=== PATIENT | male | born 1945 | race Caucasian/White ===

== ENCOUNTER 2017-03-27 16:44 | Inpatient (IN) | payer OTHER ==
[2017-03-27] MEDS ORDERED: TUSSIONEX PENNKINETIC SUSP PO PRN (17:48)
[2017-03-27] MEDS ORDERED: PHARMACY CONSULT - DOSE _____ XX SCH (18:00)
[2017-03-27] MEDS ORDERED: LEVAQUIN PREMIX IV 750 MG 750 MG/150 ML BAG IV SCH (18:00)
[2017-03-27] MEDS: DUONEB 0.5 MG/3 MG NEB SCH ×2 (18:11→20:31)
[2017-03-27] MEDS ORDERED: SALINE 3% 15 ML NEB TX NEB ONE (18:15)
[2017-03-27] MEDS ORDERED: SALINE 3% 15 ML NEB TX ONE (18:16)
[2017-03-27 18:17] VITALS: BMI 38.2
[2017-03-27 18:25] LABS: BASOPHILS % (AUTO) 1.1 % (0.2-1.0); EOSINOPHILS # (AUTO) 0.2 x10^3/uL (0.0-0.2); EOSINOPHILS % (AUTO) 5.3 % (0.9-2.9); HEMATOCRIT 34.7 % (42.0-54.0); HEMOGLOBIN 11.7 g/dL (13.5-18.0); LYMPHOCYTES # (AUTO) 0.8 X10^3/uL (1.3-2.9); LYMPHOCYTES % (AUTO) 23.6 % (21.0-51.0); MEAN CORPUSCULAR HEMOGLOBIN 32.2 pg (27.0-34.0); MEAN CORPUSCULAR HGB CONC 33.6 g/dL (33.0-35.0); MEAN CORPUSCULAR VOLUME 95.7 fL (80.0-100.0); MONOCYTES # (AUTO) 0.3 x10^3/uL (0.3-0.8); MONOCYTES % (AUTO) 7.8 % (0.0-13.0); NEUTROPHILS # (AUTO) 2.1 x10^3/uL (2.2-4.8); NEUTROPHILS % (AUTO) 62.2 % (42.0-75.0); PLATELET COUNT 104 X10^3/uL (150.0-450.0); RED BLOOD COUNT 3.62 X10^6/uL (4.7-6.0); RED CELL DISTRIBUTION WIDTH 17.7 % (11.6-16.5); WHITE BLOOD COUNT 3.5 X10^3/uL (3.6-10.0)
[2017-03-27 18:34] LABS: ALANINE AMINOTRANSFERASE 18 Units/L (12-78); ALBUMIN 3.1 g/dL (3.4-5.0); ALKALINE PHOSPHATASE 109 Units/L (46-116); ASPARTATE AMINO TRANSFERASE 38 Units/L (15-37); BLOOD UREA NITROGEN 11 mg/dL (7-18); CARBON DIOXIDE 34.3 mmol/L (21-32); CHLORIDE 103 mmol/L (98-107); COR CA(FOR HYPOALB) 9.7 mg/dL (8.5-10.1); COR NA(FOR HYPERGLY) 141 mmol/L (136-145); GLUCOSE 115 mg/dL (65-99); SODIUM 141 mmol/L (136-145); TOTAL PROTEIN 6.9 g/dL (6.4-8.2); eGFR BLACK RACES > 60 (>60); eGFR NON BLACK RACES > 60 (>60)
--- NOTE | 2017-03-27 18:44 | DR.UPDATE ---
H&P Update History and Physical Update: PRESENTED TO THE OFFICE TODAY FOR A FOLLOW UP VISIT FOR ELEVATED BLOOD SUGAR. PATIENT ALSO HAD COMPLAINTS OF COUGH, CHEST CONGESTION, WHEEZING, BILATERAL LOWER EXTREMITY EDEMA, AND WOUNDS TO BILATERAL ARMS FROM FALLING YESTERDAY. A H&P WAS COMPLETED PRIOR TO ADMISSION. HE WAS ADMITTED ON THE PNEUMONIA PROTOCOL FOR BRONCHOPNEUMONIA. WE WILL ALSO OBTAIN WOUND CULTURES OF WOUNDS TO BILATERAL ARMS. PATIENT HAS BEEN SEEN AND EXAMINED WITH NO CHANGES NOTED TO H&P. Changes noted: NO Yes with the following:
[2017-03-27] MEDS ORDERED: NS 1/2 1000 ML IV 1,000 ML IV ONE (19:13)
[2017-03-27] MEDS: NS 1/2 1000 ML IV 1,000 ML IV SCH (20:24)
[2017-03-27] MEDS: ZOSYN VIAL 4.5 GM 4.5 GM in NS 100 ML IV + SPIKE MINIBAG* 100 ML IV SCH (21:45)
[2017-03-28] MEDS: DUONEB 0.5 MG/3 MG NEB SCH ×6 (00:24→21:02)
[2017-03-28] MEDS: ROBITUSSIN DM PO SCH ×5 (00:33→20:45)
[2017-03-28] MEDS: ZOSYN VIAL 4.5 GM 4.5 GM in NS 100 ML IV + SPIKE MINIBAG* 100 ML IV SCH ×3 (05:20→21:54)
[2017-03-28 05:23] LABS: BASOPHILS % (AUTO) 0.8 % (0.2-1.0); EOSINOPHILS # (AUTO) 0.2 x10^3/uL (0.0-0.2); EOSINOPHILS % (AUTO) 5.9 % (0.9-2.9); HEMATOCRIT 32.3 % (42.0-54.0); HEMOGLOBIN 11.1 g/dL (13.5-18.0); LYMPHOCYTES # (AUTO) 0.7 X10^3/uL (1.3-2.9); LYMPHOCYTES % (AUTO) 21.5 % (21.0-51.0); MEAN CORPUSCULAR HEMOGLOBIN 32.4 pg (27.0-34.0); MEAN CORPUSCULAR HGB CONC 34.2 g/dL (33.0-35.0); MEAN CORPUSCULAR VOLUME 94.7 fL (80.0-100.0); MONOCYTES # (AUTO) 0.4 x10^3/uL (0.3-0.8); MONOCYTES % (AUTO) 10.6 % (0.0-13.0); NEUTROPHILS # (AUTO) 2.1 x10^3/uL (2.2-4.8); NEUTROPHILS % (AUTO) 61.2 % (42.0-75.0); PLATELET COUNT 99 X10^3/uL (150.0-450.0); RED BLOOD COUNT 3.41 X10^6/uL (4.7-6.0); RED CELL DISTRIBUTION WIDTH 17.7 % (11.6-16.5); WHITE BLOOD COUNT 3.4 X10^3/uL (3.6-10.0)
[2017-03-28 05:28] LABS: ALANINE AMINOTRANSFERASE 14 Units/L (12-78); ALBUMIN 2.7 g/dL (3.4-5.0); ALKALINE PHOSPHATASE 80 Units/L (46-116); ASPARTATE AMINO TRANSFERASE 35 Units/L (15-37); BLOOD UREA NITROGEN 10 mg/dL (7-18); CALCIUM 8.5 mg/dL (8.5-10.1); CHLORIDE 103 mmol/L (98-107); COR CA(FOR HYPOALB) 9.5 mg/dL (8.5-10.1); CREATININE 0.84 mg/dL (0.70-1.30); GLUCOSE 102 mg/dL (65-99); SODIUM 140 mmol/L (136-145); TOTAL PROTEIN 6.2 g/dL (6.4-8.2); eGFR BLACK RACES > 60 (>60); eGFR NON BLACK RACES > 60 (>60)
--- NOTE | 2017-03-28 06:33 | RAD ---
HISTORY: Pneumonia, cough, shortness of breath Study: Two-view chest Comparison: April 10, 2014 Technique: frontal and lateral views of both expiratory. Right costophrenic on the frontal view. Findings: The trachea is midline. Transverse cardiac diameter and bronchovascular markings are likely accentuat ed by the expiratory technique. A tiny left pleural effusion may be present . There are again changes of CABG with median sternotomy sutures and sutures indicating coronary artery bypass grafts. IMPRESSION: Expiratory phase radiographs. Transverse cardiac diameter and bronchovascular markings are likely acc entuated by the expiratory technique. Tiny left pleural effusion may be present. Reported By:
[2017-03-28] MEDS ORDERED: NS 1/2 1000 ML IV 1,000 ML IV ONE ×2 (08:08→21:47)
[2017-03-28] MEDS: SNACK - Diabetic Appropriate PO SCH ×2 (08:12→20:44)
[2017-03-28] MEDS: NS 1/2 1000 ML IV 1,000 ML IV SCH ×2 (08:14→21:54)
[2017-03-28] MEDS ORDERED: DULCOLAX TAB EC 5 MG PO PRN (08:46)
[2017-03-28] MEDS ORDERED: ANTIVERT TAB 25 MG PO PRN (08:46)
[2017-03-28] MEDS ORDERED: FATTY ACIDS PO SCH (09:00)
[2017-03-28] MEDS ORDERED: FUROSEMIDE 40 MG PO SCH (09:00)
[2017-03-28] MEDS ORDERED: NIACIN 500 MG PO SCH (09:00)
[2017-03-28] MEDS ORDERED: OMEGA PO SCH (09:00)
[2017-03-28] MEDS ORDERED: [UNRECOGNIZED DRUG - OTHER] PO SCH (09:00)
[2017-03-28] MEDS ORDERED: FISH OIL PO SCH (09:00)
[2017-03-28] MEDS ORDERED: PATIENT'S HOME MEDICATION (Metformin Hcl [Metformin Hcl] 1,000 MG) PO SCH (09:00)
[2017-03-28] MEDS ORDERED: SOTALOL HCL 80 MG PO SCH (09:00)
[2017-03-28] MEDS ORDERED: PATIENT'S HOME MEDICATION (Glipizide [Glipizide 10 Mg] 10 MG) PO SCH (09:00)
[2017-03-28] MEDS ORDERED: GLUCOPHAGE ONE (09:33)
[2017-03-28] MEDS ORDERED: LOVAZA PO ONE (09:33)
[2017-03-28] MEDS ORDERED: GLUCOTROL ONE (09:33)
[2017-03-28] MEDS ORDERED: LASIX ONE (09:33)
[2017-03-28] MEDS ORDERED: ZOLOFT PO ONE (09:33)
[2017-03-28] MEDS ORDERED: NIASPAN ER TAB 500 MG PO ONE (09:34)
--- NOTE | 2017-03-28 09:36 | PCM.PROG ---
Progress Note - Progress Note for Day of Date: 03/28/17 - Subjective Subjective: WAS ADMITTED FOR BRONCHOPNEUMONIA. HE IS ALERT AND ORIENTED, SITTING UP IN BED ON MORNING ROUNDS. HE IS NOTED WITH COMPLAINTS OF COUGH, SHORTNESS OF BREATH, AND NON-PRODUCTIVE COUGH. LUNGS ARE NOTED WITH SCATTERED WHEEZING AND RHONCHI BILATERALLY ON AUSCULTATION. VITALS THIS AM ARE 97.2-70-21-97%-120/55. CBC WNL EXCEPT WBC 3.4, RBC 3.41, HGB 11.1, HCT 32.3. CMP WNL EXCEPT GLUCOSE 102, TOTAL BILI 1.60, TOTAL PROTEIN 6.2, ALBUMIN 2.7. CHEST XRAY THAT WAS OBTAINED YESTERDAY REPORTS TINY LEFT PLEURAL EFUSION MAY BE PRESENT. BLOOD CULTURES ARE PENDING. PATIENT HAS BEEN UNABLE TO PRODUCE A SPUTUM SAMPLE, BUT WE WILL CONTINUE TO ATTEMPT TO OBTAIN SAMPLE. WE WILL CONTINUE WITH CURRENT PLAN OF CARE, RECHECK LABS AND XRAY, AND FOLLOW UP WITH PATIENT IN AM. - Past Medical Family Social History Past Med/Fam/Surg Hx: No changes since H&P Allergies: Allergies morphine Allergy (Verified 03/27/17 17:47) shrimp Allergy (Verified 03/27/17 17:48) - Review of Systems ROS: No change since H&P - Vital Signs and I&O's Vital Signs: Temperature 97.7 F Pulse Rate [Right Brachial] 89 Pulse Rate 78 Respiratory Rate 20 Blood Pressure [Left Arm] 121/66 Blood Pressure [Right Arm] 122/58 Blood Pressure 105/65 O2 Sat by Pulse Oximetry 97 Intake and Output: Intake & Output 03/25/17 03/26/17 03/27/17 03/28/17 11:59 11:59 11:59 11:59 Intake Total 1195 Output Total 900 Balance 295 - Physical Exam Oriented: Normal Eyes: Normal Ear: Normal Nose: Normal Throat: Normal Respiratory: Right, Left, Wheezes, Rhonchi Cardiovascular: Normal : Normal Auscultation: Bowel Sounds: Normal Palpation: Normal Tenderness: Normal Skin: Normal Musculoskeletal: Normal Psychiatric: Normal Mood Description: Calm Affect: Normal Speech Pattern: Clear, Appropriate - Laboratory and Diagnostics Result Diagrams: 03/28/17 04:45 03/28/17 04:45 Labs: Laboratory WBC 3.4 X10^3/uL (3.6-10.0) L 03/28/17 04:45 RBC 3.41 X10^6/uL (4.7-6.0) L 03/28/17 04:45 Hgb 11.1 g/dL (13.5-18.0) L 03/28/17 04:45 Hct 32.3 % (42.0-54.0) L 03/28/17 04:45 MCV 94.7 fL (80.0-100.0) 03/28/17 04:45 MCH 32.4 pg (27.0-34.0) 03/28/17 04:45 MCHC 34.2 g/dL (33.0-35.0) 03/28/17 04:45 RDW 17.7 % (11.6-16.5) H 03/28/17 04:45 Plt Count 99 X10^3/uL (150.0-450.0) L 03/28/17 04:45 MPV 8.0 fL (7.4-11.0) 03/28/17 04:45 Neut % 61.2 % (42.0-75.0) 03/28/17 04:45 Lymph % 21.5 % (21.0-51.0) 03/28/17 04:45 [place] % 10.6 % (0.0-13.0) 03/28/17 04:45 Eos % 5.9 % (0.9-2.9) H 03/28/17 04:45 Baso % 0.8 % (0.2-1.0) 03/28/17 04:45 Neut # 2.1 x10^3/uL (2.2-4.8) L 03/28/17 04:45 Lymph # 0.7 X10^3/uL (1.3-2.9) L 03/28/17 04:45 [place] # 0.4 x10^3/uL (0.3-0.8) 03/28/17 04:45 Eos # 0.2 x10^3/uL (0.0-0.2) 03/28/17 04:45 Baso # 0.0 X10^3/uL (0.0-0.1) 03/28/17 04:45 Absolute Nucleated RBC 0.3 /100WBC 03/28/17 04:45 Sodium 140 mmol/L (136-145) 03/28/17 04:45 Corrected Sodium TNP 03/28/17 04:45 Potassium 3.6 mmol/L (3.5-5.1) 03/28/17 04:45 Chloride 103 mmol/L (98-107) 03/28/17 04:45 Carbon Dioxide 31.0 mmol/L (21-32) 03/28/17 04:45 BUN 10 mg/dL (7-18) 03/28/17 04:45 Creatinine 0.84 mg/dL (0.70-1.30) 03/28/17 04:45 Est GFR (MDRD) Af Amer > 60 (>60) 03/28/17 04:45 Est GFR (MDRD) Non-Af > 60 (>60) 03/28/17 04:45 Glucose 102 mg/dL (65-99) H 03/28/17 04:45 Calcium 8.5 mg/dL (8.5-10.1) 03/28/17 04:45 Corrected Calcium 9.5 mg/dL (8.5-10.1) 03/28/17 04:45 Total Bilirubin 1.60 mg/dL (0.2-1.0) H 03/28/17 04:45 AST 35 Units/L (15-37) 03/28/17 04:45 ALT 14 Units/L (12-78) 03/28/17 04:45 Alkaline Phosphatase 80 Units/L (46-116) 03/28/17 04:45 Total Protein 6.2 g/dL (6.4-8.2) L 03/28/17 04:45 Albumin 2.7 g/dL (3.4-5.0) L 03/28/17 04:45 Globulin 3.5 g/dL (2.5-4.5) 03/28/17 04:45 Albumin/Globulin Ratio 0.8 Ratio (1.1-2.1) L 03/28/17 04:45 - Plan (1) Bronchopneumonia Status: Acute Plan: ZOSYN 4.5GM IV Q8H, LEVAQUIN 750MG IV DAILY, SUPPLEMENTAL OXYGEN, DUONEBS Q4H, CONTINUE TO MONITOR (2) Coronary atherosclerosis of [place] coronary artery Status: Chronic Qualifiers: [place] vs. transplanted heart: [place] heart Associated angina: angina presence unspecified Qualified Code(s): I25.10 - Atherosclerotic heart disease of [place] coronary artery without angina pectoris Plan: CONTINUE PLAVIX, CONTINUE TO MONITOR (3) Essential hypertension, benign Status: Chronic Plan: CONTINUE TO MONITOR (4) Mixed hyperlipidemia Status: Chronic Plan: CONTINUE TRICOR, CONTINUE LOVAZA, CONTINUE TO MONITOR (5) Type II diabetes mellitus, uncontrolled Status: Chronic Qualifiers: Diabetes mellitus complication status: with unspecified complications Diabetes mellitus moth exterminator insulin use: with usp use Qualified Code(s) : E11.8 - Type 2 diabetes mellitus with unspecified complications; E11.65 - Type 2 diabetes mellitus with hyperglycemia; Z79.4 - joint terminal attack controller (current) use of insulin Plan: CONTINUE GLUCOTROL, CONTINUE METFORMIN, CONTINUE TO MONITOR (6) GERD (gastroesophageal reflux disease) Status: Acute Qualifiers: Esophagitis presence: esophagitis presence not specified Qualified Code(s) : K21.9 - Gastro-esophageal reflux disease without esophagitis Plan: CONTINUE PRILOSEC, CONTINUE TO MONITOR (7) BPH (benign prostatic hyperplasia) Status: Acute Qualifiers: Lower urinary tract symptom presence: symptoms absent Qualified Code(s): N40.0 - Benign prostatic hyperplasia without lower urinary tract symptoms Plan: CONTINUE PROSCAR, CONTINUE TO MONITOR (8) PTSD (post-traumatic stress disorder) Status: Chronic Plan: CONTINUE PRAZOXIN, CONTINUE ZOLOFT, CONTINUE TO MONITOR
[2017-03-28] MEDS: TRICOR TAB 145 MG PO SCH (09:45)
[2017-03-28] MEDS: BETAPACE AF PO SCH ×2 (09:45→20:44)
[2017-03-28] MEDS: ASPIRIN PO SCH (09:45)
[2017-03-28] MEDS: ZOLOFT PO SCH (09:45)
[2017-03-28] MEDS: PriLOSEC PO SCH (09:45)
[2017-03-28] MEDS: PLAVIX PO SCH (09:46)
[2017-03-28] MEDS: LEVAQUIN PREMIX IV 750 MG 750 MG/150 ML BAG IV SCH (12:04)
[2017-03-28] MEDS: NEURONTIN TAB 600 MG PO SCH ×2 (13:44→21:54)
[2017-03-28] MEDS: GLUCOPHAGE PO SCH (16:29)
[2017-03-28] MEDS: PRAZOSIN HCL 1 MG PO SCH (20:44)
[2017-03-28] MEDS: LASIX PO SCH (20:44)
[2017-03-28] MEDS: PROSCAR PO SCH (20:45)
[2017-03-29] MEDS: DUONEB 0.5 MG/3 MG NEB SCH ×6 (01:35→21:21)
[2017-03-29] MEDS ORDERED: BUTT CREAM (COMPOUND) ONE (05:19)
[2017-03-29] MEDS: ZOSYN VIAL 4.5 GM 4.5 GM in NS 100 ML IV + SPIKE MINIBAG* 100 ML IV SCH ×3 (05:34→21:33)
[2017-03-29 06:10] LABS: BASOPHILS % (AUTO) 0.6 % (0.2-1.0); EOSINOPHILS # (AUTO) 0.1 x10^3/uL (0.0-0.2); EOSINOPHILS % (AUTO) 4.2 % (0.9-2.9); HEMATOCRIT 30.6 % (42.0-54.0); HEMOGLOBIN 10.4 g/dL (13.5-18.0); LYMPHOCYTES # (AUTO) 0.8 X10^3/uL (1.3-2.9); LYMPHOCYTES % (AUTO) 29.3 % (21.0-51.0); MEAN CORPUSCULAR HEMOGLOBIN 32.3 pg (27.0-34.0); MEAN CORPUSCULAR VOLUME 95.2 fL (80.0-100.0); MONOCYTES # (AUTO) 0.2 x10^3/uL (0.3-0.8); MONOCYTES % (AUTO) 8.9 % (0.0-13.0); NEUTROPHILS # (AUTO) 1.5 x10^3/uL (2.2-4.8); PLATELET COUNT 79 X10^3/uL (150.0-450.0); RED BLOOD COUNT 3.21 X10^6/uL (4.7-6.0); RED CELL DISTRIBUTION WIDTH 17.9 % (11.6-16.5); WHITE BLOOD COUNT 2.6 X10^3/uL (3.6-10.0)
[2017-03-29] MEDS ORDERED: GLUCOPHAGE ONE ×2 (06:19→16:10)
[2017-03-29] MEDS: NEURONTIN TAB 600 MG PO SCH ×3 (06:21→21:33)
[2017-03-29] MEDS: GLUCOPHAGE PO SCH ×2 (06:21→16:11)
[2017-03-29 06:27] LABS: ALANINE AMINOTRANSFERASE 16 Units/L (12-78); ALBUMIN 2.6 g/dL (3.4-5.0); ALKALINE PHOSPHATASE 77 Units/L (46-116); ASPARTATE AMINO TRANSFERASE 33 Units/L (15-37); BLOOD UREA NITROGEN 10 mg/dL (7-18); CALCIUM 8.4 mg/dL (8.5-10.1); CARBON DIOXIDE 30.5 mmol/L (21-32); CHLORIDE 104 mmol/L (98-107); COR CA(FOR HYPOALB) 9.5 mg/dL (8.5-10.1); CREATININE 0.94 mg/dL (0.70-1.30); GLUCOSE 108 mg/dL (65-99); SODIUM 140 mmol/L (136-145); TOTAL PROTEIN 5.8 g/dL (6.4-8.2); eGFR BLACK RACES > 60 (>60); eGFR NON BLACK RACES > 60 (>60)
--- NOTE | 2017-03-29 06:49 | RAD ---
HISTORY: Bronchopneumonia Study: AP portable chest Comparison: March 27, 2017 Findings: The patient is status post median sternotomy. The heart remains enlarged. No congestive heart failure is noted. The lungs are hypoinflated but free of acute infiltrates. No pleural effusions are identif ied. The bony thorax is unremarkable. IMPRESSION: Cardiomegaly without congestive heart failure Lungs hypoinflated but clear Reported By:
[2017-03-29] MEDS ORDERED: GLUCOTROL PO SCH (07:00)
[2017-03-29] MEDS ORDERED: ZOLOFT PO ONE (08:10)
[2017-03-29] MEDS: LOVAZA PO SCH (08:24)
[2017-03-29] MEDS: ROBITUSSIN DM PO SCH ×4 (08:24→21:33)
[2017-03-29] MEDS: ASPIRIN PO SCH (08:24)
[2017-03-29] MEDS: BETAPACE AF PO SCH ×2 (08:24→21:34)
[2017-03-29] MEDS: PriLOSEC PO SCH (08:24)
[2017-03-29] MEDS: ZOLOFT PO SCH (08:24)
[2017-03-29] MEDS: LASIX PO SCH ×2 (08:25→21:34)
[2017-03-29] MEDS: NIASPAN ER TAB 500 MG PO SCH (08:25)
[2017-03-29] MEDS: PLAVIX PO SCH (08:26)
[2017-03-29] MEDS: TRICOR TAB 145 MG PO SCH (08:27)
[2017-03-29] MEDS: LEVAQUIN PREMIX IV 750 MG 750 MG/150 ML BAG IV SCH (09:40)
[2017-03-29] MEDS ORDERED: LASIX IVP NR (10:03)
--- NOTE | 2017-03-29 10:40 | PCM.PROG ---
Progress Note - Progress Note for Day of Date: 03/29/17 - Subjective Subjective: WAS ADMITTED FOR BRONCHOPNEUMONIA. HE IS ALERT AND ORIENTED, SITTING UP IN BED ON MORNING ROUNDS. IS AT BEDSIDE. HE CONTINUES WITH COMPLAINTS OF SHORTNESS OF BREATH AND NON-PRODUCTIVE COUGH. LUNGS CONTINUE WITH SCATTERED WHEEZING AND RHONCHI BILATERALLY ON AUSCULTATION. EDEMA NOTED TO BILATERAL UPPER AND LOWER EXTREMITIES. VITALS THIS AM ARE 98.6-70-15-94%-99/54. CBC WNL EXCEPT WBC 2.6, RBC 3.21, HGB 10.4, HCT 30.6. CMP WNL EXCEPT GLUCOSE 108 , TOTAL BILI 1.20, TOTAL PROTEIN 5.8, ALBUMIN 2.6. CHEST XRAY REPORTS CARDIOMEGALY WITHOUT CHF. BLOOD CULTURES ARE PENDING. WE WILL CONTINUE TO ATTEMPT TO OBTAIN A SPUTUM SAMPLE. WE WILL GIVEN LASIX 20MG IV X 1 DOSE IN ADDITION TO HIS SCHEDULED DOSES. WE WILL CONTINUE WITH CURRENT PLAN OF CARE, RECHECK LABS AND XRAY, AND FOLLOW UP WITH PATIENT IN AM. - Past Medical Family Social History Past Med/Fam/Surg Hx: No changes since H&P Allergies: Allergies morphine Allergy (Verified 03/27/17 17:47) shrimp Allergy (Verified 03/27/17 17:48) - Review of Systems ROS: No change since H&P - Vital Signs and I&O's Vital Signs: Temperature 98.1 F Pulse Rate [Right Brachial] 79 Pulse Rate 78 Respiratory Rate 19 Blood Pressure [Left Arm] 108/54 Blood Pressure [Right Arm] 122/58 Blood Pressure 105/65 O2 Sat by Pulse Oximetry 96 Intake and Output: Intake & Output 03/26/17 03/27/17 03/28/17 03/29/17 11:59 11:59 11:59 11:59 Intake Total 1195 2470 Output Total 900 1750 Balance 295 720 - Physical Exam Oriented: Normal Eyes: Normal Ear: Normal Nose: Normal Throat: Normal Respiratory: Right, Left, Wheezes, Rhonchi Cardiovascular: Edema : Normal Auscultation: Bowel Sounds: Normal Palpation: Normal Tenderness: Normal Skin: Normal Musculoskeletal: Normal Psychiatric: Normal Mood Description: Calm Affect: Normal Speech Pattern: Clear, Appropriate - Laboratory and Diagnostics Result Diagrams: 03/29/17 05:03 03/29/17 05:03 Labs: Laboratory WBC 2.6 X10^3/uL (3.6-10.0) L 03/29/17 05:03 RBC 3.21 X10^6/uL (4.7-6.0) L 03/29/17 05:03 Hgb 10.4 g/dL (13.5-18.0) L 03/29/17 05:03 Hct 30.6 % (42.0-54.0) L 03/29/17 05:03 MCV 95.2 fL (80.0-100.0) 03/29/17 05:03 MCH 32.3 pg (27.0-34.0) 03/29/17 05:03 MCHC 34.0 g/dL (33.0-35.0) 03/29/17 05:03 RDW 17.9 % (11.6-16.5) H 03/29/17 05:03 Plt Count 79 X10^3/uL (150.0-450.0) L 03/29/17 05:03 MPV 8.0 fL (7.4-11.0) 03/29/17 05:03 Neut % 57.0 % (42.0-75.0) 03/29/17 05:03 Lymph % 29.3 % (21.0-51.0) 03/29/17 05:03 [place] % 8.9 % (0.0-13.0) 03/29/17 05:03 Eos % 4.2 % (0.9-2.9) H 03/29/17 05:03 Baso % 0.6 % (0.2-1.0) 03/29/17 05:03 Neut # 1.5 x10^3/uL (2.2-4.8) L 03/29/17 05:03 Lymph # 0.8 X10^3/uL (1.3-2.9) L 03/29/17 05:03 [place] # 0.2 x10^3/uL (0.3-0.8) L 03/29/17 05:03 Eos # 0.1 x10^3/uL (0.0-0.2) 03/29/17 05:03 Baso # 0.0 X10^3/uL (0.0-0.1) 03/29/17 05:03 Absolute Nucleated RBC 0.2 /100WBC 03/29/17 05:03 Sodium 140 mmol/L (136-145) 03/29/17 05:03 Corrected Sodium TNP 03/29/17 05:03 Potassium 3.7 mmol/L (3.5-5.1) 03/29/17 05:03 Chloride 104 mmol/L (98-107) 03/29/17 05:03 Carbon Dioxide 30.5 mmol/L (21-32) 03/29/17 05:03 BUN 10 mg/dL (7-18) 03/29/17 05:03 Creatinine 0.94 mg/dL (0.70-1.30) 03/29/17 05:03 Est GFR (MDRD) Af Amer > 60 (>60) 03/29/17 05:03 Est GFR (MDRD) Non-Af > 60 (>60) 03/29/17 05:03 Glucose 108 mg/dL (65-99) H 03/29/17 05:03 Calcium 8.4 mg/dL (8.5-10.1) L 03/29/17 05:03 Corrected Calcium 9.5 mg/dL (8.5-10.1) 03/29/17 05:03 Total Bilirubin 1.20 mg/dL (0.2-1.0) H 03/29/17 05:03 AST 33 Units/L (15-37) 03/29/17 05:03 ALT 16 Units/L (12-78) 03/29/17 05:03 Alkaline Phosphatase 77 Units/L (46-116) 03/29/17 05:03 Total Protein 5.8 g/dL (6.4-8.2) L 03/29/17 05:03 Albumin 2.6 g/dL (3.4-5.0) L 03/29/17 05:03 Globulin 3.2 g/dL (2.5-4.5) 03/29/17 05:03 Albumin/Globulin Ratio 0.8 Ratio (1.1-2.1) L 03/29/17 05:03 - Plan (1) Bronchopneumonia Status: Acute Plan: ZOSYN 4.5GM IV Q8H, LEVAQUIN 750MG IV DAILY, SUPPLEMENTAL OXYGEN, DUONEBS Q4H, CONTINUE TO MONITOR (2) Coronary atherosclerosis of [place] coronary artery Status: Chronic Qualifiers: [place] vs. transplanted heart: [place] heart Associated angina: angina presence unspecified Qualified Code(s): I25.10 - Atherosclerotic heart disease of [place] coronary artery without angina pectoris Plan: CONTINUE PLAVIX, CONTINUE TO MONITOR (3) Essential hypertension, benign Status: Chronic Plan: CONTINUE TO MONITOR (4) Mixed hyperlipidemia Status: Chronic Plan: CONTINUE TRICOR, CONTINUE LOVAZA, CONTINUE TO MONITOR (5) Type II diabetes mellitus, uncontrolled Status: Chronic Qualifiers: Diabetes mellitus complication status: with unspecified complications Diabetes mellitus assisted insulin use: with assisted use Qualified Code(s) : E11.8 - Type 2 diabetes mellitus with unspecified complications; E11.65 - Type 2 diabetes mellitus with hyperglycemia; Z79.4 - ad terminal makeup operator (current) use of insulin Plan: CONTINUE GLUCOTROL, CONTINUE METFORMIN, CONTINUE TO MONITOR (6) GERD (gastroesophageal reflux disease) Status: Acute Qualifiers: Esophagitis presence: esophagitis presence not specified Qualified Code(s) : K21.9 - Gastro-esophageal reflux disease without esophagitis Plan: CONTINUE PRILOSEC, CONTINUE TO MONITOR (7) BPH (benign prostatic hyperplasia) Status: Acute Qualifiers: Lower urinary tract symptom presence: symptoms absent Qualified Code(s): N40.0 - Benign prostatic hyperplasia without lower urinary tract symptoms Plan: CONTINUE PROSCAR, CONTINUE TO MONITOR (8) PTSD (post-traumatic stress disorder) Status: Chronic Plan: CONTINUE PRAZOXIN, CONTINUE ZOLOFT, CONTINUE TO MONITOR
[2017-03-29] MEDS: NS 1/2 1000 ML IV 1,000 ML IV SCH (13:15)
[2017-03-29] MEDS: PROSCAR PO SCH (21:33)
[2017-03-29] MEDS: SNACK - Diabetic Appropriate PO SCH (21:39)
[2017-03-29] MEDS: PRAZOSIN HCL 1 MG PO SCH (21:44)
[2017-03-30] MEDS: DUONEB 0.5 MG/3 MG NEB SCH ×6 (05:00→21:45)
[2017-03-30 05:41] LABS: BASOPHILS % (AUTO) 0.8 % (0.2-1.0); EOSINOPHILS # (AUTO) 0.1 x10^3/uL (0.0-0.2); EOSINOPHILS % (AUTO) 4.3 % (0.9-2.9); HEMATOCRIT 30.7 % (42.0-54.0); HEMOGLOBIN 10.6 g/dL (13.5-18.0); LYMPHOCYTES # (AUTO) 0.7 X10^3/uL (1.3-2.9); LYMPHOCYTES % (AUTO) 24.5 % (21.0-51.0); MEAN CORPUSCULAR HEMOGLOBIN 32.9 pg (27.0-34.0); MEAN CORPUSCULAR HGB CONC 34.5 g/dL (33.0-35.0); MEAN CORPUSCULAR VOLUME 95.4 fL (80.0-100.0); MEAN PLATELET VOLUME 8.3 fL (7.4-11.0); MONOCYTES # (AUTO) 0.2 x10^3/uL (0.3-0.8); MONOCYTES % (AUTO) 8.1 % (0.0-13.0); NEUTROPHILS # (AUTO) 1.8 x10^3/uL (2.2-4.8); NEUTROPHILS % (AUTO) 62.3 % (42.0-75.0); PLATELET COUNT 74 X10^3/uL (150.0-450.0); RED BLOOD COUNT 3.21 X10^6/uL (4.7-6.0)
[2017-03-30 05:52] LABS: ALANINE AMINOTRANSFERASE 12 Units/L (12-78); ALBUMIN 2.5 g/dL (3.4-5.0); ALKALINE PHOSPHATASE 74 Units/L (46-116); ASPARTATE AMINO TRANSFERASE 32 Units/L (15-37); BLOOD UREA NITROGEN 13 mg/dL (7-18); CALCIUM 8.2 mg/dL (8.5-10.1); CARBON DIOXIDE 29.5 mmol/L (21-32); CHLORIDE 103 mmol/L (98-107); COR CA(FOR HYPOALB) 9.4 mg/dL (8.5-10.1); CREATININE 0.99 mg/dL (0.70-1.30); GLUCOSE 97 mg/dL (65-99); SODIUM 139 mmol/L (136-145); TOTAL PROTEIN 5.9 g/dL (6.4-8.2); eGFR BLACK RACES > 60 (>60); eGFR NON BLACK RACES > 60 (>60)
[2017-03-30] MEDS ORDERED: GLUCOPHAGE ONE ×2 (06:02→16:29)
[2017-03-30] MEDS: NEURONTIN TAB 600 MG PO SCH ×3 (06:34→21:19)
[2017-03-30] MEDS: GLUCOPHAGE PO SCH ×2 (06:34→16:32)
[2017-03-30] MEDS: ZOSYN VIAL 4.5 GM 4.5 GM in NS 100 ML IV + SPIKE MINIBAG* 100 ML IV SCH ×3 (06:34→21:20)
[2017-03-30] MEDS: NS 1/2 1000 ML IV 1,000 ML IV SCH ×3 (06:35→18:57)
--- NOTE | 2017-03-30 07:35 | RAD ---
HISTORY: Bronchopneumonia follow up Study: Chest AP portable Comparison: March 29, 2017 Findings: The patient is status post median sternotomy and CABG. The heart is enlarged. No congestive heart monique lure is noted. The lungs are hypoinflated but free of acute infiltrates. No pleural effusions are david ntified. The bony thorax is unremarkable. IMPRESSION: Cardiomegaly without congestive heart failure Lungs hypoinflated but clear Reported By:
[2017-03-30] MEDS ORDERED: ZOLOFT PO ONE (08:21)
[2017-03-30] MEDS: LOVAZA PO SCH (09:32)
[2017-03-30] MEDS: ASPIRIN PO SCH (09:32)
[2017-03-30] MEDS: LEVAQUIN PREMIX IV 750 MG 750 MG/150 ML BAG IV SCH (09:32)
[2017-03-30] MEDS: NIASPAN ER TAB 500 MG PO SCH (09:32)
[2017-03-30] MEDS: LASIX PO SCH ×2 (09:33→21:19)
[2017-03-30] MEDS: ROBITUSSIN DM PO SCH ×4 (09:33→21:20)
[2017-03-30] MEDS: ZOLOFT PO SCH (09:33)
[2017-03-30] MEDS: BETAPACE AF PO SCH ×2 (09:33→21:20)
[2017-03-30] MEDS: PriLOSEC PO SCH (09:33)
[2017-03-30] MEDS: PLAVIX PO SCH (09:34)
[2017-03-30] MEDS ORDERED: NS 1/2 1000 ML IV 1,000 ML IV ONE (09:41)
[2017-03-30] MEDS: TRICOR TAB 145 MG PO SCH (09:48)
--- NOTE | 2017-03-30 11:11 | PCM.PROG ---
Progress Note - Progress Note for Day of Date: 03/30/17 - Subjective Subjective: IS ALERT AND ORIENTED, SITTING UP IN CHAIR ON MORNING ROUNDS. IS AT BEDSIDE. HE CONTINUES WITH COMPLAINTS OF SHORTNESS OF BREATH AND NON-PRODUCTIVE COUGH, BUT REPORTS THAT IT HAS IMPROVED SINCE YESTERDAY. LUNGS ARE NOTED WITH BILATERAL WHEEZING ON AUSCULTATION. VITALS THIS AM ARE 98.6 -70-15-94%-99/54. CBC WNL EXCEPT WBC 3.0, RBC 3.21, HGB 10.6, HCT 30.7. CMP WNL EXCEPT CALCIUM 8.2, TOTAL BILI 1.40, TOTAL PROTEIN 5.9, ALBUMIN 2.5. CHEST XRAY REPORTS CARDIOMEGALY WITHOUT CHF, LUNGS CLEAR. PRELIMINARY BLOOD CULTURE REPORTS NO GROWTH. WE HAVE BEEN UNSUCCESSFUL WITH OBTAINING A SPUTUM CULTURE. WE WILL CONTINUE WITH CURRENT PLAN OF CARE, RECHECK LABS AND XRAY, AND FOLLOW UP WITH PATIENT IN AM. - Past Medical Family Social History Past Med/Fam/Surg Hx: No changes since H&P Allergies: Allergies morphine Allergy (Verified 03/27/17 17:47) shrimp Allergy (Verified 03/27/17 17:48) - Review of Systems ROS: No change since H&P - Vital Signs and I&O's Vital Signs: Temperature 97.6 F Pulse Rate [Right Brachial] 71 Pulse Rate 73 Respiratory Rate 21 Blood Pressure [Left Arm] 101/59 Blood Pressure [Right Arm] 122/58 Blood Pressure 105/65 O2 Sat by Pulse Oximetry 95 Intake and Output: Intake & Output 03/27/17 03/28/17 03/29/17 03/30/17 11:59 11:59 11:59 11:59 Intake Total 1195 2470 2759 Output Total 900 1750 1900 Balance 295 720 859 - Physical Exam Oriented: Normal Eyes: Normal Ear: Normal Nose: Normal Throat: Normal Respiratory: Right, Left, Wheezes Cardiovascular: Edema : Normal Auscultation: Bowel Sounds: Normal Palpation: Normal Tenderness: Normal Skin: Normal Musculoskeletal: Normal Psychiatric: Normal Mood Description: Calm Affect: Normal Speech Pattern: Clear, Appropriate - Laboratory and Diagnostics Result Diagrams: 03/30/17 04:55 03/30/17 04:55 Labs: 03/27/17 18:08 Blood Blood Culture - Preliminary 03/27/17 18:03 Blood Blood Culture - Preliminary Laboratory WBC 3.0 X10^3/uL (3.6-10.0) L 03/30/17 04:55 RBC 3.21 X10^6/uL (4.7-6.0) L 03/30/17 04:55 Hgb 10.6 g/dL (13.5-18.0) L 03/30/17 04:55 Hct 30.7 % (42.0-54.0) L 03/30/17 04:55 MCV 95.4 fL (80.0-100.0) 03/30/17 04:55 MCH 32.9 pg (27.0-34.0) 03/30/17 04:55 MCHC 34.5 g/dL (33.0-35.0) 03/30/17 04:55 RDW 18.0 % (11.6-16.5) H 03/30/17 04:55 Plt Count 74 X10^3/uL (150.0-450.0) L 03/30/17 04:55 MPV 8.3 fL (7.4-11.0) 03/30/17 04:55 Neut % 62.3 % (42.0-75.0) 03/30/17 04:55 Lymph % 24.5 % (21.0-51.0) 03/30/17 04:55 [place] % 8.1 % (0.0-13.0) 03/30/17 04:55 Eos % 4.3 % (0.9-2.9) H 03/30/17 04:55 Baso % 0.8 % (0.2-1.0) 03/30/17 04:55 Neut # 1.8 x10^3/uL (2.2-4.8) L 03/30/17 04:55 Lymph # 0.7 X10^3/uL (1.3-2.9) L 03/30/17 04:55 [place] # 0.2 x10^3/uL (0.3-0.8) L 03/30/17 04:55 Eos # 0.1 x10^3/uL (0.0-0.2) 03/30/17 04:55 Baso # 0.0 X10^3/uL (0.0-0.1) 03/30/17 04:55 Absolute Nucleated RBC 0.1 /100WBC 03/30/17 04:55 Sodium 139 mmol/L (136-145) 03/30/17 04:55 Corrected Sodium TNP 03/30/17 04:55 Potassium 3.5 mmol/L (3.5-5.1) 03/30/17 04:55 Chloride 103 mmol/L (98-107) 03/30/17 04:55 Carbon Dioxide 29.5 mmol/L (21-32) 03/30/17 04:55 BUN 13 mg/dL (7-18) 03/30/17 04:55 Creatinine 0.99 mg/dL (0.70-1.30) 03/30/17 04:55 Est GFR (MDRD) Af Amer > 60 (>60) 03/30/17 04:55 Est GFR (MDRD) Non-Af > 60 (>60) 03/30/17 04:55 Glucose 97 mg/dL (65-99) 03/30/17 04:55 Calcium 8.2 mg/dL (8.5-10.1) L 03/30/17 04:55 Corrected Calcium 9.4 mg/dL (8.5-10.1) 03/30/17 04:55 Total Bilirubin 1.40 mg/dL (0.2-1.0) H 03/30/17 04:55 AST 32 Units/L (15-37) 03/30/17 04:55 ALT 12 Units/L (12-78) 03/30/17 04:55 Alkaline Phosphatase 74 Units/L (46-116) 03/30/17 04:55 Total Protein 5.9 g/dL (6.4-8.2) L 03/30/17 04:55 Albumin 2.5 g/dL (3.4-5.0) L 03/30/17 04:55 Globulin 3.4 g/dL (2.5-4.5) 03/30/17 04:55 Albumin/Globulin Ratio 0.7 Ratio (1.1-2.1) L 03/30/17 04:55 - Plan (1) Bronchopneumonia Status: Acute Plan: ZOSYN 4.5GM IV Q8H, LEVAQUIN 750MG IV DAILY, SUPPLEMENTAL OXYGEN, DUONEBS Q4H, CONTINUE TO MONITOR (2) Coronary atherosclerosis of [place] coronary artery Status: Chronic Qualifiers: [place] vs. transplanted heart: [place] heart Associated angina: angina presence unspecified Qualified Code(s): I25.10 - Atherosclerotic heart disease of [place] coronary artery without angina pectoris Plan: CONTINUE PLAVIX, CONTINUE TO MONITOR (3) Essential hypertension, benign Status: Chronic Plan: CONTINUE TO MONITOR (4) Mixed hyperlipidemia Status: Chronic Plan: CONTINUE TRICOR, CONTINUE LOVAZA, CONTINUE TO MONITOR (5) Type II diabetes mellitus, uncontrolled Status: Chronic Qualifiers: Diabetes mellitus complication status: with unspecified complications Diabetes mellitus superintendent container terminal insulin use: with superintendent container terminal use Qualified Code(s) : E11.8 - Type 2 diabetes mellitus with unspecified complications; E11.65 - Type 2 diabetes mellitus with hyperglycemia; Z79.4 - watermaster (current) use of insulin Plan: CONTINUE GLUCOTROL, CONTINUE METFORMIN, CONTINUE TO MONITOR (6) GERD (gastroesophageal reflux disease) Status: Acute Qualifiers: Esophagitis presence: esophagitis presence not specified Qualified Code(s) : K21.9 - Gastro-esophageal reflux disease without esophagitis Plan: CONTINUE PRILOSEC, CONTINUE TO MONITOR (7) BPH (benign prostatic hyperplasia) Status: Acute Qualifiers: Lower urinary tract symptom presence: symptoms absent Qualified Code(s): N40.0 - Benign prostatic hyperplasia without lower urinary tract symptoms Plan: CONTINUE PROSCAR, CONTINUE TO MONITOR (8) PTSD (post-traumatic stress disorder) Status: Chronic Plan: CONTINUE PRAZOXIN, CONTINUE ZOLOFT, CONTINUE TO MONITOR
[2017-03-30] MEDS ORDERED: K-RIDER 10 MEQ/NS 100 ML 10 MEQ/100 ML BAG IV PRN (11:58)
[2017-03-30] MEDS ORDERED: K-LYTE EFFERVESCENT PO PRN (11:58)
[2017-03-30] MEDS ORDERED: K-DUR TAB 20 MEQ PO PRN (11:58)
[2017-03-30] MEDS ORDERED: POTASSIUM CHLORIDE LIQ 20 MEQ UDC PO PRN (11:58)
[2017-03-30] MEDS: PROSCAR PO SCH (21:19)
[2017-03-30] MEDS: PRAZOSIN HCL 1 MG PO SCH (21:20)
[2017-03-30] MEDS: SNACK - Diabetic Appropriate PO SCH (21:20)
[2017-03-31] MEDS: DUONEB 0.5 MG/3 MG NEB SCH ×4 (00:24→16:00)
[2017-03-31] MEDS ORDERED: GLUCOPHAGE ONE ×2 (05:53→16:15)
[2017-03-31] MEDS: ZOSYN VIAL 4.5 GM 4.5 GM in NS 100 ML IV + SPIKE MINIBAG* 100 ML IV SCH ×2 (06:01→14:15)
[2017-03-31] MEDS: NEURONTIN TAB 600 MG PO SCH ×2 (06:02→14:15)
[2017-03-31] MEDS: GLUCOPHAGE PO SCH ×2 (06:02→16:22)
[2017-03-31] MEDS: NS 1/2 1000 ML IV 1,000 ML IV SCH ×2 (06:04→16:23)
[2017-03-31 06:34] LABS: BASOPHILS % (AUTO) 0.7 % (0.2-1.0); EOSINOPHILS # (AUTO) 0.2 x10^3/uL (0.0-0.2); EOSINOPHILS % (AUTO) 6.1 % (0.9-2.9); HEMATOCRIT 31.5 % (42.0-54.0); HEMOGLOBIN 10.6 g/dL (13.5-18.0); LYMPHOCYTES # (AUTO) 0.7 X10^3/uL (1.3-2.9); LYMPHOCYTES % (AUTO) 26.4 % (21.0-51.0); MEAN CORPUSCULAR HEMOGLOBIN 32.5 pg (27.0-34.0); MEAN CORPUSCULAR HGB CONC 33.6 g/dL (33.0-35.0); MEAN CORPUSCULAR VOLUME 96.8 fL (80.0-100.0); MEAN PLATELET VOLUME 8.6 fL (7.4-11.0); MONOCYTES # (AUTO) 0.2 x10^3/uL (0.3-0.8); MONOCYTES % (AUTO) 8.3 % (0.0-13.0); NEUTROPHILS # (AUTO) 1.6 x10^3/uL (2.2-4.8); NEUTROPHILS % (AUTO) 58.5 % (42.0-75.0); PLATELET COUNT 73 X10^3/uL (150.0-450.0); RED BLOOD COUNT 3.26 X10^6/uL (4.7-6.0); RED CELL DISTRIBUTION WIDTH 17.9 % (11.6-16.5); WHITE BLOOD COUNT 2.7 X10^3/uL (3.6-10.0)
[2017-03-31 06:43] LABS: ALANINE AMINOTRANSFERASE 14 Units/L (12-78); ALBUMIN 2.6 g/dL (3.4-5.0); ALKALINE PHOSPHATASE 76 Units/L (46-116); ASPARTATE AMINO TRANSFERASE 35 Units/L (15-37); BLOOD UREA NITROGEN 14 mg/dL (7-18); CALCIUM 8.2 mg/dL (8.5-10.1); CARBON DIOXIDE 28.2 mmol/L (21-32); CHLORIDE 104 mmol/L (98-107); COR CA(FOR HYPOALB) 9.3 mg/dL (8.5-10.1); CREATININE 1.03 mg/dL (0.70-1.30); GLUCOSE 109 mg/dL (65-99); SODIUM 139 mmol/L (136-145); TOTAL PROTEIN 6.1 g/dL (6.4-8.2); eGFR BLACK RACES > 60 (>60); eGFR NON BLACK RACES > 60 (>60)
--- NOTE | 2017-03-31 07:54 | RAD ---
Chest, one view Indication: Bronchopneumonia Comparison: March 30, 2017 Findings: There is stable mild cardiomegaly without congestive failure. Prior median sternotomy and C ABG changes again noted. Lungs are hypoexpanded but otherwise clear. No appreciable effusion or pneum othorax. Impression: No acute cardiopulmonary abnormality. Reported By:
[2017-03-31] MEDS ORDERED: ZOLOFT PO ONE (08:11)
[2017-03-31] MEDS: TRICOR TAB 145 MG PO SCH (08:20)
[2017-03-31] MEDS: LEVAQUIN PREMIX IV 750 MG 750 MG/150 ML BAG IV SCH (08:20)
[2017-03-31] MEDS: NIASPAN ER TAB 500 MG PO SCH (08:20)
[2017-03-31] MEDS: PLAVIX PO SCH (08:20)
[2017-03-31] MEDS: LASIX PO SCH (08:20)
[2017-03-31] MEDS: BETAPACE AF PO SCH (08:20)
[2017-03-31] MEDS: ROBITUSSIN DM PO SCH ×3 (08:20→16:22)
[2017-03-31] MEDS: LOVAZA PO SCH (08:20)
[2017-03-31] MEDS: PriLOSEC PO SCH (08:20)
[2017-03-31] MEDS: ASPIRIN PO SCH (08:20)
[2017-03-31] MEDS: ZOLOFT PO SCH (08:20)
[2017-03-31] MEDS ORDERED: NS 1/2 1000 ML IV 1,000 ML IV ONE (16:03)
[2017-03-31 16:29] VITALS: BP 101/56
== END 2017-03-31 18:50 | disposition home or self-care (01) | DRG 195 ==
LOC: ICU 16:44
PROVIDERS: ADMIT Internal Medicine; ATTEND Internal Medicine
DX: J16.8 Pneumonia due to other specified infectious organisms (principal); E11.65 Type 2 diabetes mellitus with hyperglycemia; E78.2 Mixed hyperlipidemia; R53.1 Weakness; J44.9 Chronic obstructive pulmonary disease, unspecified; I10 Essential (primary) hypertension; S41.111A Laceration without foreign body of right upper arm, initial encounter; S41.112A Laceration without foreign body of left upper arm, initial encounter; R06.02 Shortness of breath; I25.10 Atherosclerotic heart disease of native coronary artery without angina pectoris; Z79.4 Long term (current) use of insulin; K21.9 Gastro-esophageal reflux disease without esophagitis; N40.0 Benign prostatic hyperplasia without lower urinary tract symptoms; F43.12 Post-traumatic stress disorder, chronic; R26.89 Other abnormalities of gait and mobility; W18.39XA Other fall on same level, initial encounter
CPT/HCPCS: 36415; 71010; 71020; 80053; 85025; 87040; 87070; 87075; 87205; 94640; 94760; A4222; S0138; J1940; J1956; J2543; J7620

== ENCOUNTER 2017-04-16 00:09 | Emergency (ER) | payer OTHER ==
[2017-04-16 00:17] VITALS: BP 94/57; BMI 37.5
--- NOTE | 2017-04-16 00:32 | DR.GENAD ---
HPI - PCP Primary Care Physician: NORMA - Complaint/Symptoms Chief Complaint Doctors Comments: Patient was trying to use the commode with the assistance of spouse and when sitting he hit his head on the left temporal area. There was no LOC and no skin abrasion. Patient is alert in no distress. Chief Complaint:: PT FELL OFF TOLIET AND HIT HIS HEAD ON THE LT SIDE OF HEAD - Source History Provided: Patient - Mode of Arrival Mode of Arrival: EMS - Timing Onset of Chief Complaint: 04/15/17 PMH - PMH Past Medical History: Yes Past Medical History: Anxiety, Arthritis, Coronary Artery Disease, Diabetes, Dyslipidemia, Hypertension, PR Past Surgical History: Yes Surgical History: Ortho Surgery, Other - Family History History of Family Medical Conditions: Yes Family Medical History: Diabetes Mellitus, Hypertension - Social History Does any household member use tobacco: No Alcohol Use: None Do you use any recreational Drugs:: No Lives With: Family Lives Where: Home - infectious screening In the last 2 months have you had wt loss of >10#?: NO Have you had fever, night sweats or hemotysis?: No Have you traveled outside the country in the last 6 months?: No Isolation: Standard ROS - Review of Systems Eyes: No Symptoms Reported ENTM: No Symptoms Reported Respiratoy: No Symptoms Reported Cardiovascular: No Symptoms Reported Gastrointestinal/Abdominal: No Symptoms Reported Genitourinary: No Symptoms Reported Neurological: No Symptoms Reported Musculoskeletal: No Symptoms Reported Integumentary: No Symptoms Reported Hematologic/Lymphatic: No Symptoms Reported Endocrine: No Symptoms Reported Psychiatric: No Symptoms Reported All Other Systems: Reviewed and Negative PE - Vital Signs Vitals: Temperature 97.8 F Pulse Rate 84 Respiratory Rate 20 Blood Pressure [Left Arm] 101/56 Blood Pressure [Right Arm] 108/58 Blood Pressure 94/57 O2 Sat by Pulse Oximetry 93 - General Limitations: No Limitations General Appearance: Alert, In No Apparent Distress - Head Head Exam: Normal Inspection, Atraumatic - Eyes Eye exam: Normal Appearance, PERRL, EOMI - ENT ENT Exam: Normal Exam External Ear Exam: Normal External Inspection TM/Canal Exam: Bilateral Normal Nose Exam: Normal Nose Exam Mouth Exam: Normal Inspection Throat Exam: Normal Inspection - Neck Neck Exam: Normal Inspection, Full ROM - Chest Chest Inspection: Normal Inspection - Respiratory Respiratory Exam: Normal Lung Sounds Bilat Respiratory Exam: Bilateral Clear to Auscultation - Cardiovascular Cardiovascular Exam: Regular Rate, Normal Rhythm - Abdominal Exam Abdominal Exam: Normal Inspection, Normal Bowel Sounds Abdominal Tenderness: negative: RUQ, RLQ, LUQ, LLQ, Epigastrium, Suprapubic, Diffuse, Mild, Moderate, Severe, Other - Extremities Extremities Exam: Normal Inspection, Full ROM - Back Back Exam: Normal Inspection, Full ROM - Neurologic Neurological Exam: Alert, Oriented X3, CN II-XII Intact - Psychiatric Psychiatric Exam: Normal Affect, Normal Mood - Skin Skin Exam: Warm, Dry, Intact, Normal Color - Diagnosis Discharge Problem: Head trauma Qualifiers: Encounter type: initial encounter Qualified Code(s): S09.90XA - Unspecified injury of head, initial encounter - Discharge Plan Condition: Stable - Follow ups/Referrals Follow ups/Referrals: Xander Keller [Primary Care Provider] - 3 days - Instructions
== END 2017-04-16 01:02 | disposition home or self-care (01) ==
LOC: ER 00:09
DX: S09.8XXA Other specified injuries of head, initial encounter (principal); W01.198A Fall on same level from slipping, tripping and stumbling with subsequent striking against other object, initial encounter; Y92.9 Unspecified place or not applicable
CPT/HCPCS: 99281; 99282

== ENCOUNTER 2017-04-16 13:33 | Observation (INO) | payer OTHER ==
[2017-04-16] MEDS: LASIX IVP SCH ×2 (15:10→21:15)
[2017-04-16 15:12] LABS: BASOPHILS # (AUTO) 0.1 X10^3/uL (0.0-0.1); BASOPHILS % (AUTO) 1.3 % (0.2-1.0); EOSINOPHILS # (AUTO) 0.2 x10^3/uL (0.0-0.2); EOSINOPHILS % (AUTO) 5.8 % (0.9-2.9); HEMATOCRIT 34.2 % (42.0-54.0); HEMOGLOBIN 11.6 g/dL (13.5-18.0); LYMPHOCYTES # (AUTO) 0.8 X10^3/uL (1.3-2.9); LYMPHOCYTES % (AUTO) 18.8 % (21.0-51.0); MEAN CORPUSCULAR HEMOGLOBIN 32.4 pg (27.0-34.0); MEAN CORPUSCULAR HGB CONC 33.9 g/dL (33.0-35.0); MEAN CORPUSCULAR VOLUME 95.5 fL (80.0-100.0); MEAN PLATELET VOLUME 8.1 fL (7.4-11.0); MONOCYTES # (AUTO) 0.3 x10^3/uL (0.3-0.8); MONOCYTES % (AUTO) 8.4 % (0.0-13.0); NEUTROPHILS # (AUTO) 2.7 x10^3/uL (2.2-4.8); NEUTROPHILS % (AUTO) 65.7 % (42.0-75.0); PLATELET COUNT 100 X10^3/uL (150.0-450.0); RED BLOOD COUNT 3.58 X10^6/uL (4.7-6.0); RED CELL DISTRIBUTION WIDTH 17.1 % (11.6-16.5); WHITE BLOOD COUNT 4.1 X10^3/uL (3.6-10.0)
[2017-04-16 15:36] LABS: ALANINE AMINOTRANSFERASE 14 Units/L (12-78); ALBUMIN 2.6 g/dL (3.4-5.0); ALKALINE PHOSPHATASE 97 Units/L (46-116); ASPARTATE AMINO TRANSFERASE 39 Units/L (15-37); BLOOD UREA NITROGEN 20 mg/dL (7-18); CALCIUM 8.4 mg/dL (8.5-10.1); CARBON DIOXIDE 34.4 mmol/L (21-32); CHLORIDE 98 mmol/L (98-107); CKMB % 1.8 % (<4); COR CA(FOR HYPOALB) 9.5 mg/dL (8.5-10.1); CREATINE KINASE 57 Units/L (39-308); CREATINE KINASE MB < 1.0 ng/mL (0-4.0); SODIUM 139 mmol/L (136-145); TOTAL PROTEIN 6.1 g/dL (6.4-8.2); TROPONIN I 0.08 ng/mL (0-1.5); eGFR BLACK RACES > 60 (>60); eGFR NON BLACK RACES 53 (>60)
[2017-04-16 15:50] LABS: BILIRUBIN,URINE NEGATIVE (NEGATIVE); BLOOD/HEMOGLOBIN,URINE 1+ (NEGATIVE); GLUCOSE, URINE NEGATIVE (NEGATIVE); KETONES,URINE NEGATIVE (NEGATIVE); LEUKOCYTE ESTERASE ,URINE 1+ (NEGATIVE); NITRITES,URINE NEGATIVE (NEGATIVE); PROTEIN,URINE NEGATIVE (NEGATIVE); UROBILINOGEN,URINE 1+ (NORMAL)
[2017-04-16 15:51] VITALS: BMI 38.0
[2017-04-16 15:59] LABS: APPEARANCE,URINE SLIGHTLY HAZY (CLEAR); COLOR,URINE DARK YELLOW (YELLOW)
[2017-04-16 16:00] LABS: BACTERIA,URINE 2+ /HPF (NEGATIVE); RENAL EPITHELIAL CELLS,URINE RARE /HPF (NEGATIVE); SQUAMOUS EPITHELIAL CELL,UR FEW /HPF (NEGATIVE)
--- NOTE | 2017-04-16 16:26 | RAD ---
AP Chest Indication: Shortness of breath Comparison: 03/31/2017 Findings: The trachea is midline. Heart size is borderline enlarged given AP technique . Previous m sternotomy is again noted . The lungs are underinflated with congestion of the central pulmonary vasculature , no focal airspace opacity pleural effusion or pneumothorax. The lungs are clear without focal infiltr ate or effusion. The bony thorax is unremarkable. IMPRESSION: Suboptimal inspiration limits evaluation with borderline cardiomegaly post median sternotomy; without evidence of acute airspace disease or CHF. Reported By:
[2017-04-16 18:46] LABS: CKMB % 1.9 % (<4); CREATINE KINASE 52 Units/L (39-308); CREATINE KINASE MB < 1.0 ng/mL (0-4.0); TROPONIN I 0.08 ng/mL (0-1.5)
[2017-04-16 22:20] LABS: CREATINE KINASE 51 Units/L (39-308); CREATINE KINASE MB < 1.0 ng/mL (0-4.0); TROPONIN I 0.07 ng/mL (0-1.5)
[2017-04-17 04:30] LABS: ALANINE AMINOTRANSFERASE 12 Units/L (12-78); ALBUMIN 2.6 g/dL (3.4-5.0); ALKALINE PHOSPHATASE 89 Units/L (46-116); ASPARTATE AMINO TRANSFERASE 37 Units/L (15-37); BLOOD UREA NITROGEN 19 mg/dL (7-18); CALCIUM 8.5 mg/dL (8.5-10.1); CARBON DIOXIDE 37.8 mmol/L (21-32); CHLORIDE 100 mmol/L (98-107); COR CA(FOR HYPOALB) 9.6 mg/dL (8.5-10.1); CREATININE 1.18 mg/dL (0.70-1.30); SODIUM 142 mmol/L (136-145); TOTAL PROTEIN 6.1 g/dL (6.4-8.2); eGFR BLACK RACES > 60 (>60); eGFR NON BLACK RACES > 60 (>60)
[2017-04-17 04:34] LABS: BASOPHILS % (AUTO) 0.8 % (0.2-1.0); EOSINOPHILS # (AUTO) 0.4 x10^3/uL (0.0-0.2); EOSINOPHILS % (AUTO) 8.7 % (0.9-2.9); HEMATOCRIT 35.1 % (42.0-54.0); HEMOGLOBIN 11.9 g/dL (13.5-18.0); LYMPHOCYTES % (AUTO) 23.2 % (21.0-51.0); MEAN CORPUSCULAR HEMOGLOBIN 32.6 pg (27.0-34.0); MEAN CORPUSCULAR VOLUME 95.7 fL (80.0-100.0); MONOCYTES # (AUTO) 0.4 x10^3/uL (0.3-0.8); MONOCYTES % (AUTO) 8.5 % (0.0-13.0); NEUTROPHILS # (AUTO) 2.4 x10^3/uL (2.2-4.8); NEUTROPHILS % (AUTO) 58.8 % (42.0-75.0); PLATELET COUNT 108 X10^3/uL (150.0-450.0); RED BLOOD COUNT 3.66 X10^6/uL (4.7-6.0); RED CELL DISTRIBUTION WIDTH 17.6 % (11.6-16.5); WHITE BLOOD COUNT 4.1 X10^3/uL (3.6-10.0)
--- NOTE | 2017-04-17 07:36 | RAD ---
HISTORY: Shortness of breath Study: Chest AP portable Comparison: April 16, 2017 Findings: Patient is rotated to the right. Patient is status post median sternotomy and CABG. The heart is enla rged. No congestive heart failure is noted. The lungs are hypoinflated but free of acute infiltrates. No pleural effusions are identified. The bony thorax is unremarkable. IMPRESSION: Cardiomegaly without congestive heart failure Lungs hypoinflated but clear Reported By:
[2017-04-17] MEDS: LASIX IVP SCH (09:14)
[2017-04-17] MEDS ORDERED: POTASSIUM CHLORIDE LIQ 20 MEQ UDC PO PRN (20:04)
[2017-04-17] MEDS ORDERED: K-LYTE EFFERVESCENT PO PRN (20:04)
[2017-04-17] MEDS ORDERED: K-DUR TAB 20 MEQ PO PRN (20:04)
[2017-04-17] MEDS ORDERED: K-RIDER 10 MEQ/NS 100 ML 10 MEQ/100 ML BAG IV PRN (20:04)
[2017-04-17] MEDS ORDERED: SNACK - Diabetic Appropriate PO SCH (20:45)
--- NOTE | 2017-04-17 21:58 | DR.UPDATE ---
H&P Update History and Physical Update: H&P WAS COMPLETED WITH HIS LAST ADMISSION ON 03/27/17. HE PRESENTED TODAY WITH GENERALIZED 2+ PITTING EDEMA, SHORTNESS OF BREATH, AND ALTERED MENTAL STATUS THAT BEGAN TODAY. WE ADMITTED PATIENT FOR FURTHER TREATMENT AND EVALUATION OF CHF. WE PLANNED TO GIVE LASIX 20MG IV X 2 DOSES, CHECK CBC, CMP, AND CHEST XRAY ON ADMISSION. ABNORMAL LAB VALUES FROM ADMISSION ARE FOLLOWS: RBC 3.58, HGB 11.6, HCT 34.2, POTASSIUM 3.4, CARBON DIOXIDE 34.4, BUN 20, CREATININE 1.40, GLUCOSE 103, CALCIUM 8.4, TOTAL BILI 1.20, AST 39, TOTAL PROTEIN 6.1, ALBUMIN 2.6. CHEST XRAY REPORTED SUBOPTIMAL INSPIRATION LIMITS EVALUATION WITH BORDERLINE CARDIOMEGALY POST MEDIAN STERNOTOMY, WITHOUT EVIDENCE OF ACUTE AIRSPACE DISEASE OR CHF. AN EKG AND CARDIAC ENZYMES WERE OBTAINED. CARDIAC ENZYMES NEGATIVE. EKG REPORTED SINUS RHYTHM, PVC, HR 78. PATIENT SEEN AND EXAMINED WITH NO CHANGES TO H&P. WE WILL RECHECK AM LABS AND CONTINUE TO MONITOR PATIENT. Changes noted: NO Yes with the following:
[2017-04-18 06:07] LABS: BASOPHILS % (AUTO) 0.6 % (0.2-1.0); EOSINOPHILS # (AUTO) 0.3 x10^3/uL (0.0-0.2); EOSINOPHILS % (AUTO) 7.6 % (0.9-2.9); HEMATOCRIT 35.7 % (42.0-54.0); HEMOGLOBIN 12.1 g/dL (13.5-18.0); LYMPHOCYTES # (AUTO) 0.9 X10^3/uL (1.3-2.9); LYMPHOCYTES % (AUTO) 21.5 % (21.0-51.0); MEAN CORPUSCULAR HEMOGLOBIN 32.2 pg (27.0-34.0); MEAN CORPUSCULAR HGB CONC 33.9 g/dL (33.0-35.0); MEAN CORPUSCULAR VOLUME 95.1 fL (80.0-100.0); MEAN PLATELET VOLUME 7.7 fL (7.4-11.0); MONOCYTES # (AUTO) 0.5 x10^3/uL (0.3-0.8); MONOCYTES % (AUTO) 11.3 % (0.0-13.0); NEUTROPHILS # (AUTO) 2.4 x10^3/uL (2.2-4.8); PLATELET COUNT 102 X10^3/uL (150.0-450.0); RED BLOOD COUNT 3.76 X10^6/uL (4.7-6.0); RED CELL DISTRIBUTION WIDTH 17.1 % (11.6-16.5); WHITE BLOOD COUNT 4.1 X10^3/uL (3.6-10.0)
[2017-04-18 06:21] LABS: ALANINE AMINOTRANSFERASE 14 Units/L (12-78); ALBUMIN 2.6 g/dL (3.4-5.0); ALKALINE PHOSPHATASE 84 Units/L (46-116); ASPARTATE AMINO TRANSFERASE 40 Units/L (15-37); BLOOD UREA NITROGEN 16 mg/dL (7-18); CALCIUM 8.5 mg/dL (8.5-10.1); CARBON DIOXIDE 37.7 mmol/L (21-32); CHLORIDE 101 mmol/L (98-107); COR CA(FOR HYPOALB) 9.6 mg/dL (8.5-10.1); CREATININE 1.01 mg/dL (0.70-1.30); SODIUM 142 mmol/L (136-145); TOTAL PROTEIN 6.1 g/dL (6.4-8.2); eGFR BLACK RACES > 60 (>60); eGFR NON BLACK RACES > 60 (>60)
[2017-04-18] MEDS ORDERED: ANTIVERT TAB 25 MG PO PRN (07:51)
[2017-04-18] MEDS ORDERED: DULCOLAX TAB EC 5 MG PO PRN (07:51)
[2017-04-18] MEDS ORDERED: TRICOR TAB 145 MG PO SCH (09:00)
[2017-04-18] MEDS ORDERED: FISH OIL PO SCH (09:00)
[2017-04-18] MEDS ORDERED: PLAVIX PO SCH (09:00)
[2017-04-18] MEDS ORDERED: PriLOSEC PO SCH (09:00)
[2017-04-18] MEDS ORDERED: OMEGA PO SCH (09:00)
[2017-04-18] MEDS ORDERED: ASPIRIN PO SCH (09:00)
[2017-04-18] MEDS ORDERED: ZOLOFT PO SCH (09:00)
[2017-04-18] MEDS ORDERED: [UNRECOGNIZED DRUG - OTHER] PO SCH (09:00)
[2017-04-18] MEDS ORDERED: FATTY ACIDS PO SCH (09:00)
[2017-04-18] MEDS ORDERED: PATIENT'S HOME MEDICATION (Glipizide [Glipizide 10 Mg] 10 MG) PO SCH (09:00)
[2017-04-18] MEDS ORDERED: SOTALOL HCL 80 MG PO SCH (09:00)
[2017-04-18] MEDS ORDERED: PATIENT'S HOME MEDICATION (Metformin Hcl [Metformin Hcl] 1,000 MG) PO SCH (09:00)
[2017-04-18] MEDS ORDERED: NS 500 ML IV 500 ML IV SCH (09:24)
[2017-04-18] MEDS: ALBUMIN HUMAN 25%- 100ML 100 ML IV SCH ×2 (09:32→09:45)
--- NOTE | 2017-04-18 10:15 | RAD ---
History: Shortness of breath. Study: Portable AP chest Comparison: Yesterday Findings: There is no significant change. There is very limited inspiration with subsegmental atelect asis in the right lower lobe. The heart is prominent status post sternotomy for Coronary artery bypa ss grafting surgery. Impression: Limited inspiration with subsegmental atelectasis in the right lower lobe Reported By:
[2017-04-18] MEDS ORDERED: ZOLOFT PO ONE (10:43)
[2017-04-18] MEDS ORDERED: LOVAZA PO SCH (10:45)
[2017-04-18] MEDS: LASIX IVP SCH ×2 (10:47→10:50)
[2017-04-18] MEDS ORDERED: BETAPACE AF PO SCH (11:00)
[2017-04-18] MEDS ORDERED: BUTT CREAM (COMPOUND) TOP PRN (11:04)
--- NOTE | 2017-04-18 11:51 | PCM.PROG ---
Progress Note - Progress Note for Day of Date: 04/17/17 - Subjective Subjective: WAS ADMITTED FOR PITTING EDEMA AND SHORTNESS OF BREATH. TODAY, HE IS ALERT AND ORIENTED, LYING IN BED ON MORNING ROUNDS. HE CONTINUES WITH COMPLAINTS OF SHORTNESS OF BREATH AND WEAKNESS. ON EXAMINATION, LUNGS ARE NOTED WITH WHEEZING BILATERALLY. THERE IS 1+ PITTING EDEMA NOTED TO BILATERAL LOWER EXTREMITIES, IMPROVED SINCE YESTERDAY. HIS VITAL SIGNS THIS MORNING ARE 97.0-77-15-99%-103/53. A CBC, CMP, AND CHEST XRAY WERE OBTAINED. ABNORMAL LAB VALUES INCLUDE THE FOLLOWING: RBC 3.66, HGB 11.9, HCT 35.1. POTASSIUM 3.4, CARBON DIOXIDE 37.8, BUN 19, TOTAL BILI 1.30, TOTAL PROTEIN 6.1, ALBUMIN 2.6. CHEST XRAY REPORTED CARDIOMEGALY WITHOUT CHF, LUNGS HYPERIFLATED BUT CLEAR. WE WILL OBTAIN AN ECHO TOMORROW. HIS POPE CATHETER WILL BE DISCONTINUED. WE WILL OBTAIN A CBC, CMP, AND CHEST XRAY IN THE MORNING AND WE WILL CONTINUE TO MONITOR PATIENT. - Past Medical Family Social History Past Med/Fam/Surg Hx: No changes since H&P Allergies: Allergies morphine Allergy (Verified 03/27/17 17:47) shrimp Allergy (Verified 03/27/17 17:48) - Review of Systems ROS: No change since H&P - Vital Signs and I&O's Vital Signs: Temperature 97.3 F Pulse Rate [Apical] 84 Respiratory Rate 20 Blood Pressure [Left Arm] 123/58 Blood Pressure [Right Arm] 108/58 Blood Pressure 94/57 O2 Sat by Pulse Oximetry 97 Intake and Output: Intake & Output 04/15/17 04/16/17 04/17/17 04/18/17 11:59 11:59 11:59 11:59 Intake Total 220 1370 Output Total 1150 1100 Balance -930 270 - Physical Exam Oriented: Normal Eyes: Normal Ear: Normal Nose: Normal Throat: Normal Respiratory: Generalized, Wheezes Cardiovascular: Edema : Normal Auscultation: Bowel Sounds: Normal Palpation: Normal Tenderness: Normal Skin: Bruising Musculoskeletal: Instability Psychiatric: Normal Mood Description: Calm Affect: Normal Speech Pattern: Clear, Appropriate - Laboratory and Diagnostics Result Diagrams: 04/18/17 05:23 04/18/17 08:47 Labs: 04/16/17 15:15 Urine,Catheterized Urine Culture - Final Laboratory WBC 4.1 X10^3/uL (3.6-10.0) 04/18/17 05:23 RBC 3.76 X10^6/uL (4.7-6.0) L 04/18/17 05:23 Hgb 12.1 g/dL (13.5-18.0) L 04/18/17 05:23 Hct 35.7 % (42.0-54.0) L 04/18/17 05:23 MCV 95.1 fL (80.0-100.0) 04/18/17 05:23 MCH 32.2 pg (27.0-34.0) 04/18/17 05:23 MCHC 33.9 g/dL (33.0-35.0) 04/18/17 05:23 RDW 17.1 % (11.6-16.5) H 04/18/17 05:23 Plt Count 102 X10^3/uL (150.0-450.0) L 04/18/17 05:23 MPV 7.7 fL (7.4-11.0) 04/18/17 05:23 Neut % 59.0 % (42.0-75.0) 04/18/17 05:23 Lymph % 21.5 % (21.0-51.0) 04/18/17 05:23 Jay % 11.3 % (0.0-13.0) 04/18/17 05:23 Eos % 7.6 % (0.9-2.9) H 04/18/17 05:23 Baso % 0.6 % (0.2-1.0) 04/18/17 05:23 Neut # 2.4 x10^3/uL (2.2-4.8) 04/18/17 05:23 Lymph # 0.9 X10^3/uL (1.3-2.9) L 04/18/17 05:23 Jay # 0.5 x10^3/uL (0.3-0.8) 04/18/17 05:23 Eos # 0.3 x10^3/uL (0.0-0.2) H 04/18/17 05:23 Baso # 0.0 X10^3/uL (0.0-0.1) 04/18/17 05:23 Absolute Nucleated RBC 0.0 /100WBC 04/18/17 05:23 Sodium 142 mmol/L (136-145) 04/18/17 05:23 Corrected Sodium TNP 04/18/17 05:23 Potassium 4.8 mmol/L (3.5-5.1) 04/18/17 08:47 Chloride 101 mmol/L (98-107) 04/18/17 05:23 Carbon Dioxide 37.7 mmol/L (21-32) H 04/18/17 05:23 BUN 16 mg/dL (7-18) 04/18/17 05:23 Creatinine 1.01 mg/dL (0.70-1.30) 04/18/17 05:23 Est GFR (MDRD) Af Amer > 60 (>60) 04/18/17 05:23 Est GFR (MDRD) Non-Af > 60 (>60) 04/18/17 05:23 Glucose 100 mg/dL (65-99) H 04/18/17 05:23 POC Glucose (mg/dL) 97 mg/dL (65-99) 04/18/17 05:43 Calcium 8.5 mg/dL (8.5-10.1) 04/18/17 05:23 Corrected Calcium 9.6 mg/dL (8.5-10.1) 04/18/17 05:23 Total Bilirubin 1.50 mg/dL (0.2-1.0) H 04/18/17 05:23 AST 40 Units/L (15-37) H 04/18/17 05:23 ALT 14 Units/L (12-78) 04/18/17 05:23 Alkaline Phosphatase 84 Units/L (46-116) 04/18/17 05:23 Creatine Kinase 51 Units/L (39-308) 04/16/17 21:45 CK-MB (CK-2) < 1.0 ng/mL (0-4.0) 04/16/17 21:45 CK/CKMB % Calc 2.0 % (<4) 04/16/17 21:45 Troponin I 0.07 ng/mL (0-1.5) 04/16/17 21:45 Total Protein 6.1 g/dL (6.4-8.2) L 04/18/17 05:23 Albumin 2.6 g/dL (3.4-5.0) L 04/18/17 05:23 Globulin 3.5 g/dL (2.5-4.5) 04/18/17 05:23 Albumin/Globulin Ratio 0.7 Ratio (1.1-2.1) L 04/18/17 05:23 Specimen Type Catherized urine 04/16/17 15:15 Urine Color Dark yellow (YELLOW) 04/16/17 15:15 Urine Appearance Slightly hazy (CLEAR) 04/16/17 15:15 Urine pH 5.0 (5.0 - 8.0) 04/16/17 15:15 Ur Specific [place] 1.015 (1.000-1.030) 04/16/17 15:15 Urine Protein Negative (NEGATIVE) 04/16/17 15:15 Urine Glucose (UA) Negative (NEGATIVE) 04/16/17 15:15 Urine Ketones Negative (NEGATIVE) 04/16/17 15:15 Urine Occult Blood 1+ (NEGATIVE) 04/16/17 15:15 Urine Nitrite Negative (NEGATIVE) 04/16/17 15:15 Urine Bilirubin Negative (NEGATIVE) 04/16/17 15:15 Urine Urobilinogen 1+ (NORMAL) 04/16/17 15:15 Ur Leukocyte Esterase 1+ (NEGATIVE) 04/16/17 15:15 Urine RBC 3-5 /HPF (NEGATIVE) 04/16/17 15:15 Urine WBC 3-5 /HPF (NEGATIVE) 04/16/17 15:15 Ur Squamous Epith Cells Few /HPF (NEGATIVE) 04/16/17 15:15 Ur Renal Epithelial Cell Rare /HPF (NEGATIVE) 04/16/17 15:15 Urine Bacteria 2+ /HPF (NEGATIVE) 04/16/17 15:15 Ur Culture Indicated? Yes/culture set up 04/16/17 15:15 - Plan (1) Congestive heart failure Status: Acute Qualifiers: Congestive heart failure type: unspecified congestive heart failure type Congestive heart failure chronicity: acute Qualified Code(s): I50.9 - Heart failure, unspecified
[2017-04-18] MEDS ORDERED: NEURONTIN CAP 300 MG PO SCH (14:00)
[2017-04-18 16:01] VITALS: BP 98/54
[2017-04-18] MEDS ORDERED: GLUCOPHAGE ONE (16:15)
[2017-04-18] MEDS ORDERED: GLUCOPHAGE PO SCH (17:00)
[2017-04-18] MEDS ORDERED: PRAZOSIN HCL 3 MG PO SCH (21:00)
[2017-04-18] MEDS ORDERED: LASIX IVP ONE (21:00)
[2017-04-18] MEDS ORDERED: PROSCAR PO SCH (21:00)
[2017-04-19] MEDS ORDERED: GLUCOTROL PO SCH (07:00)
== END 2017-04-18 16:40 ==
LOC: ICU 13:33
PROVIDERS: ADMIT Internal Medicine; ATTEND Internal Medicine
DX: I50.9 Heart failure, unspecified (principal); I48.2 Chronic atrial fibrillation; R41.82 Altered mental status, unspecified; J44.9 Chronic obstructive pulmonary disease, unspecified; I10 Essential (primary) hypertension; E11.9 Type 2 diabetes mellitus without complications; E78.2 Mixed hyperlipidemia
CPT/HCPCS: 36415; 71010; 80053; 81001; 82550; 82553; 84132; 84484; 85025; 87086; 93005; A4216; A4222; P9047; G0378; J1940

== ENCOUNTER 2017-04-25 19:17 | Emergency (ER) | payer OTHER ==
[2017-04-25 19:43] VITALS: BMI 37.2
--- NOTE | 2017-04-25 19:51 | DR.GENAD ---
HPI - PCP Primary Care Physician: Dr Keller - Complaint/Symptoms Chief Complaint Doctors Comments: This 71y/o patient was referred from the [facility] because it was reported that he has AMS. Son-IN-Law reports that this has been ongoing for the past three weeks. He has decrease his activity due to frequent falling due to weakness. [place] has has fallen often he is encouraged not to walk very much. He has talked randomly at times having no relationship to the conversation at hand. He tries to answer questions presented to him but when given the answer he continues to talk with no relationship to the conversation. PMH - PMH Past Medical History: Anxiety, Arthritis, Coronary Artery Disease, Diabetes, Dyslipidemia, Hypertension, [place] Past Surgical History: Yes Surgical History: CABG/Valve Surgery, Ortho Surgery, Other - Family History Family Medical History: Diabetes Mellitus, Hypertension - Social History Do you use any recreational Drugs:: No ROS - Review of Systems Constitutional: No Symptoms Reported. negative: Diaphoresis Eyes: No Symptoms Reported ENTM: No Symptoms Reported Respiratoy: No Symptoms Reported Cardiovascular: No Symptoms Reported Gastrointestinal/Abdominal: No Symptoms Reported Genitourinary: No Symptoms Reported Neurological: No Symptoms Reported Musculoskeletal: No Symptoms Reported Integumentary: No Symptoms Reported Hematologic/Lymphatic: No Symptoms Reported Endocrine: No Symptoms Reported Psychiatric: No Symptoms Reported All Other Systems: Reviewed and Negative PE - Vital Signs Vitals: Temperature 98.2 F Pulse Rate 98 Respiratory Rate 18 Blood Pressure [Left Arm] 98/54 Blood Pressure [Right Arm] 108/58 Blood Pressure 114/57 O2 Sat by Pulse Oximetry 96 - General Limitations: No Limitations, Physical Limitation General Appearance: In No Apparent Distress - Head Head Exam: Normal Inspection, Atraumatic - Eyes Eye exam: Normal Appearance, PERRL, EOMI - ENT ENT Exam: Normal Exam, Normal Oropharynx External Ear Exam: Normal External Inspection, Auricular Hematoma TM/Canal Exam: Bilateral Normal Nose Exam: Normal Nose Exam Mouth Exam: Normal Inspection Throat Exam: Normal Inspection - Neck Neck Exam: Normal Inspection - Chest Chest Inspection: Normal Inspection - Respiratory Respiratory Exam: Normal Lung Sounds Bilat Respiratory Exam: Bilateral Clear to Auscultation - Cardiovascular Cardiovascular Exam: Regular Rate, Normal Rhythm - Abdominal Exam Abdominal Exam: Normal Inspection, Normal Bowel Sounds Abdominal Tenderness: negative: RUQ, RLQ, LUQ, LLQ, Epigastrium, Suprapubic, Diffuse, Mild, Moderate, Severe, Other - Extremities Extremities Exam: Normal Inspection, Full ROM - Back Back Exam: Normal Inspection, Full ROM - Neurologic Neurological Exam: Alert, Oriented X3, CN II-XII Intact - Psychiatric Psychiatric Exam: Normal Mood, Flat Affect - Skin Skin Exam: Warm, Dry, Intact, Other (edematous lower extremities with weeping fluid, 2+-3 pitting) Course - Reevaluation 1st: Unchanged - Consultation Called: 21:40 (Patient discussed with Dr Bolton; mental status has been ongoing for two to three weeks according to family) ROR - Labs Reviewed Laboratory Results Reviewed?: Yes (Hopokalemia, hypoalbuminemia) Result Diagrams: 04/25/17 20:06 04/25/17 20:06 Laboratory: WBC 4.1 X10^3/uL (3.6-10.0) 04/25/17 20:06 RBC 3.63 X10^6/uL (4.7-6.0) L 04/25/17 20:06 Hgb 11.8 g/dL (13.5-18.0) L 04/25/17 20:06 Hct 34.5 % (42.0-54.0) L 04/25/17 20:06 MCV 95.1 fL (80.0-100.0) 04/25/17 20:06 MCH 32.5 pg (27.0-34.0) 04/25/17 20:06 MCHC 34.2 g/dL (33.0-35.0) 04/25/17 20:06 RDW 17.1 % (11.6-16.5) H 04/25/17 20:06 Plt Count 90 X10^3/uL (150.0-450.0) L 04/25/17 20:06 MPV 7.3 fL (7.4-11.0) L 04/25/17 20:06 Neut % 74.9 % (42.0-75.0) 04/25/17 20:06 Lymph % 16.3 % (21.0-51.0) L 04/25/17 20:06 [place] % 8.0 % (0.0-13.0) 04/25/17 20:06 Eos % 0.3 % (0.9-2.9) L 04/25/17 20:06 Baso % 0.5 % (0.2-1.0) 04/25/17 20:06 Neut # 3.1 x10^3/uL (2.2-4.8) 04/25/17 20:06 Lymph # 0.7 X10^3/uL (1.3-2.9) L 04/25/17 20:06 [place] # 0.3 x10^3/uL (0.3-0.8) 04/25/17 20:06 Eos # 0.0 x10^3/uL (0.0-0.2) 04/25/17 20:06 Baso # 0.0 X10^3/uL (0.0-0.1) 04/25/17 20:06 Absolute Nucleated RBC 0.1 /100WBC 04/25/17 20:06 Sodium 140 mmol/L (136-145) 04/25/17 20:06 Corrected Sodium TNP 04/25/17 20:06 Potassium 3.3 mmol/L (3.5-5.1) L 04/25/17 20:06 Chloride 100 mmol/L (98-107) 04/25/17 20:06 Carbon Dioxide 29.2 mmol/L (21-32) 04/25/17 20:06 BUN 12 mg/dL (7-18) 04/25/17 20:06 Creatinine 1.09 mg/dL (0.70-1.30) 04/25/17 20:06 Est GFR (MDRD) Af Amer > 60 (>60) 04/25/17 20:06 Est GFR (MDRD) Non-Af > 60 (>60) 04/25/17 20:06 Glucose 63 mg/dL (65-99) L 04/25/17 20:06 Calcium 8.6 mg/dL (8.5-10.1) 04/25/17 20:06 Corrected Calcium 9.4 mg/dL (8.5-10.1) 04/25/17 20:06 Total Bilirubin 2.20 mg/dL (0.2-1.0) H 04/25/17 20:06 AST 49 Units/L (15-37) H 04/25/17 20:06 ALT 18 Units/L (12-78) 04/25/17 20:06 Alkaline Phosphatase 71 Units/L (46-116) 04/25/17 20:06 Ammonia 31 umol/L (11-32) 04/25/17 21:21 C-Reactive Protein 44.50 mg/L (0-3.0) H 04/25/17 20:06 Total Protein 6.7 g/dL (6.4-8.2) 04/25/17 20:06 Albumin 3.0 g/dL (3.4-5.0) L 04/25/17 20:06 Globulin 3.7 g/dL (2.5-4.5) 04/25/17 20:06 Albumin/Globulin Ratio 0.8 Ratio (1.1-2.1) L 04/25/17 20:06 - XRAY XRAY Interpreted by: Radiologist (Chest: No acute process, right foot: Diffuse osteopenia, Degenerative changes of the 1st MTP joint, Calcaneal enthesophytes. No acute cortical disruption or dislocation can be identified. Nospecific soft tissue swelling is seen about the foot.) - Diagnosis Discharge Problem: Abnormal liver function test Change in mental status Qualifiers: Altered mental status type: transient alteration of awareness Qualified Code(s) : R40.4 - Transient alteration of awareness - Discharge Plan Condition: Stable - Follow ups/Referrals Follow ups/Referrals: Xander Keller [Primary Care Provider] - 3 days - Instructions
[2017-04-25 20:15] LABS: BASOPHILS % (AUTO) 0.5 % (0.2-1.0); EOSINOPHILS % (AUTO) 0.3 % (0.9-2.9); HEMATOCRIT 34.5 % (42.0-54.0); HEMOGLOBIN 11.8 g/dL (13.5-18.0); LYMPHOCYTES # (AUTO) 0.7 X10^3/uL (1.3-2.9); LYMPHOCYTES % (AUTO) 16.3 % (21.0-51.0); MEAN CORPUSCULAR HEMOGLOBIN 32.5 pg (27.0-34.0); MEAN CORPUSCULAR HGB CONC 34.2 g/dL (33.0-35.0); MEAN CORPUSCULAR VOLUME 95.1 fL (80.0-100.0); MEAN PLATELET VOLUME 7.3 fL (7.4-11.0); MONOCYTES # (AUTO) 0.3 x10^3/uL (0.3-0.8); NEUTROPHILS # (AUTO) 3.1 x10^3/uL (2.2-4.8); NEUTROPHILS % (AUTO) 74.9 % (42.0-75.0); PLATELET COUNT 90 X10^3/uL (150.0-450.0); RED BLOOD COUNT 3.63 X10^6/uL (4.7-6.0); RED CELL DISTRIBUTION WIDTH 17.1 % (11.6-16.5); WHITE BLOOD COUNT 4.1 X10^3/uL (3.6-10.0)
[2017-04-25 20:27] LABS: ALANINE AMINOTRANSFERASE 18 Units/L (12-78); ALKALINE PHOSPHATASE 71 Units/L (46-116); ASPARTATE AMINO TRANSFERASE 49 Units/L (15-37); BLOOD UREA NITROGEN 12 mg/dL (7-18); CALCIUM 8.6 mg/dL (8.5-10.1); CARBON DIOXIDE 29.2 mmol/L (21-32); CHLORIDE 100 mmol/L (98-107); COR CA(FOR HYPOALB) 9.4 mg/dL (8.5-10.1); CREATININE 1.09 mg/dL (0.70-1.30); SODIUM 140 mmol/L (136-145); TOTAL PROTEIN 6.7 g/dL (6.4-8.2); eGFR BLACK RACES > 60 (>60); eGFR NON BLACK RACES > 60 (>60)
[2017-04-25] MEDS ORDERED: POTASSIUM CHLORIDE LIQ 20 MEQ UDC ONE (21:17)
[2017-04-25] MEDS: POTASSIUM CHLORIDE LIQ 20 MEQ UDC PO ONE ×2 (21:17→22:33)
--- NOTE | 2017-04-25 21:25 | RAD ---
Chest, one view Indication: Shortness of breath, fall Comparison: 04/18/2017 Findings: Mild cardiac silhouette enlargement is unchanged. The lungs are mildly hypoinflated, but es sentially clear without overt edema, focal infiltrates, or large effusion. No displaced fracture is i dentified. Impression: No acute chest process. Reported By:
--- NOTE | 2017-04-25 21:28 | RAD ---
HISTORY: Pain status post fall. Study: Three views of the right foot. Comparison: None. Findings: Diffuse osteopenia. Degenerative changes of the 1st MTP joint. Calcaneal enthesophytes. No acute caty ical disruption or dislocation can be identified. Nonspecific soft tissue swelling is seen about the foot. IMPRESSION: No acute osseous abnormality. Reported By:
[2017-04-25] MEDS ORDERED: K-DUR TAB 20 MEQ PO ONE ×2 (22:06→22:26)
[2017-04-25 22:59] VITALS: BP 117/57
== END 2017-04-25 22:55 | disposition home or self-care (01) ==
LOC: ER 19:23
DX: R40.4 Transient alteration of awareness (principal); R94.5 Abnormal results of liver function studies
CPT/HCPCS: 36415; 71010; 73630; 80053; 82140; 85025; 86140; 93005; 99283

== ENCOUNTER → 2017-04-25 | Outpatient (CLI) | payer OTHER ==
[2017-04-18 16:01] VITALS: BP 98/54
--- NOTE | 2017-04-25 13:23 | CT ---
HEAD CT WITHOUT IV CONTRAST CLINICAL INDICATION: Fall with right frontal swelling TECHNIQUE: Axial CT images from skull base to vertex without IV contrast.Dose reduction techniques in cluding Automated Exposure Control (AEC) and adjustment of mA and kV were utlized. COMPARISON: None FINDINGS: Diffuse patchy and confluent white matter hypoattenuation with associated volume loss. There is no ev idence of acute infarction, intracranial hemorrhage, mass or mass effect, or abnormal extra-axial col lection. The density of the larger dural venous sinuses is normal. Age-related, ex-vacuo dilatation o f the ventricles and sulci. The skull base and calvarium are normal. The included paranasal sinuses a nd mastoid air cells are predominantly clear. Right frontal scalp laceration and right parietal scalp hematoma. IMPRESSION: 1. Right scalp soft tissue injury without acute intracranial abnormality. 2. Chronic microangiopathic changes and ex vacuo dilatation of the ventricles and sulci. Reported By:
== END | disposition home or self-care (01) ==
LOC: RAD 10:42
PROVIDERS: ATTEND Internal Medicine
DX: S00.03XA Contusion of scalp, initial encounter (principal); W19.XXXA Unspecified fall, initial encounter; I67.82 Cerebral ischemia
CPT/HCPCS: 70450

== ENCOUNTER 2017-05-28 13:03 | Emergency (ER) | payer OTHER ==
[~2017-05-28 13:03] MED LIST: NS 1000 ML 1,000 ML ONE
[2017-05-28 13:10] VITALS: BP 95/54; BMI 41.3
--- NOTE | 2017-05-28 13:19 | DR.GENAD ---
HPI - Complaint/Symptoms Chief Complaint Doctors Comments: Patient presented to the ED via EMS with comlaint of AMS. He has a history of frequent falling according to his spouse. His speach is unintelligle. PMH - PMH Past Medical History: Anxiety, Arthritis, Coronary Artery Disease, Diabetes, Dyslipidemia, Hypertension, [place] Past Surgical History: Yes Surgical History: CABG/Valve Surgery, Ortho Surgery, Other - Family History Family Medical History: Diabetes Mellitus, Hypertension - Social History Do you use any recreational Drugs:: No ROS - Review of Systems Eyes: No Symptoms Reported ENTM: No Symptoms Reported Respiratoy: No Symptoms Reported Cardiovascular: No Symptoms Reported Gastrointestinal/Abdominal: No Symptoms Reported Genitourinary: No Symptoms Reported Neurological: No Symptoms Reported Musculoskeletal: No Symptoms Reported Integumentary: No Symptoms Reported Hematologic/Lymphatic: No Symptoms Reported Endocrine: No Symptoms Reported Psychiatric: No Symptoms Reported All Other Systems: Reviewed and Negative PE - Vital Signs Vitals: Temperature 98.1 F Pulse Rate 80 Respiratory Rate 16 Blood Pressure [Left Arm] 117/57 Blood Pressure [Right Arm] 108/58 Blood Pressure 95/54 O2 Sat by Pulse Oximetry 98 - General Limitations: Altered Mental Status General Appearance: Alert, In No Apparent Distress - Head Head Exam: Normal Inspection, Atraumatic - Eyes Eye exam: Normal Appearance, PERRL, EOMI - ENT ENT Exam: Normal Exam External Ear Exam: Normal External Inspection TM/Canal Exam: Bilateral Normal Nose Exam: Normal Nose Exam Mouth Exam: Normal Inspection Throat Exam: Normal Inspection - Neck Neck Exam: Normal Inspection, Full ROM - Chest Chest Inspection: Normal Inspection - Respiratory Respiratory Exam: Normal Lung Sounds Bilat Respiratory Exam: Bilateral Clear to Auscultation - Cardiovascular Cardiovascular Exam: Regular Rate, Normal Rhythm - Abdominal Exam Abdominal Exam: Normal Inspection, Normal Bowel Sounds Abdominal Tenderness: negative: RUQ, RLQ, LUQ, LLQ, Epigastrium, Suprapubic, Diffuse, Mild, Moderate, Severe, Other - Extremities Extremities Exam: Normal Inspection, Full ROM - Back Back Exam: Normal Inspection, Full ROM - Neurologic Neurological Exam: Alert, Oriented X3, CN II-XII Intact - Psychiatric Psychiatric Exam: Normal Affect, Normal Mood - Skin Skin Exam: Warm, Dry, Intact, Other (ecchymosis bilateral eye ridge) Course - Consultation Called: 14:25 (Patient accepted for transfer at 1428) ROR - Labs Reviewed Result Diagrams: 05/28/17 13:10 05/28/17 13:10 Laboratory: WBC 5.3 X10^3/uL (3.6-10.0) 05/28/17 13:10 RBC 3.54 X10^6/uL (4.7-6.0) L 05/28/17 13:10 Hgb 11.8 g/dL (13.5-18.0) L 05/28/17 13:10 Hct 34.5 % (42.0-54.0) L 05/28/17 13:10 MCV 97.5 fL (80.0-100.0) 05/28/17 13:10 MCH 33.3 pg (27.0-34.0) 05/28/17 13:10 MCHC 34.1 g/dL (33.0-35.0) 05/28/17 13:10 RDW 18.2 % (11.6-16.5) H 05/28/17 13:10 Plt Count 135 X10^3/uL (150.0-450.0) L 05/28/17 13:10 MPV 7.4 fL (7.4-11.0) 05/28/17 13:10 Neut % 61.4 % (42.0-75.0) 05/28/17 13:10 Lymph % 23.3 % (21.0-51.0) 05/28/17 13:10 [place] % 11.5 % (0.0-13.0) 05/28/17 13:10 Eos % 3.2 % (0.9-2.9) H 05/28/17 13:10 Baso % 0.6 % (0.2-1.0) 05/28/17 13:10 Neut # 3.2 x10^3/uL (2.2-4.8) 05/28/17 13:10 Lymph # 1.2 X10^3/uL (1.3-2.9) L 05/28/17 13:10 [place] # 0.6 x10^3/uL (0.3-0.8) 05/28/17 13:10 Eos # 0.2 x10^3/uL (0.0-0.2) 05/28/17 13:10 Baso # 0.0 X10^3/uL (0.0-0.1) 05/28/17 13:10 Absolute Nucleated RBC 0.0 /100WBC 05/28/17 13:10 INR Target Range - 05/28/17 13:10 INR 1.16 (0.8-1.3) 05/28/17 13:10 Sodium 140 mmol/L (136-145) 05/28/17 13:10 Corrected Sodium TNP 05/28/17 13:10 Potassium 4.2 mmol/L (3.5-5.1) 05/28/17 13:10 Chloride 101 mmol/L (98-107) 05/28/17 13:10 Carbon Dioxide 37.5 mmol/L (21-32) H 05/28/17 13:10 BUN 15 mg/dL (7-18) 05/28/17 13:10 Creatinine 1.22 mg/dL (0.70-1.30) 05/28/17 13:10 Est GFR (MDRD) Af Amer > 60 (>60) 05/28/17 13:10 Est GFR (MDRD) Non-Af > 60 (>60) 05/28/17 13:10 Glucose 81 mg/dL (65-99) 05/28/17 13:10 Calcium 8.6 mg/dL (8.5-10.1) 05/28/17 13:10 Corrected Calcium 10.0 mg/dL (8.5-10.1) 05/28/17 13:10 Total Bilirubin 1.00 mg/dL (0.2-1.0) 05/28/17 13:10 AST 61 Units/L (15-37) H 05/28/17 13:10 ALT 22 Units/L (12-78) 05/28/17 13:10 Alkaline Phosphatase 109 Units/L (46-116) 05/28/17 13:10 Creatine Kinase 17 Units/L (39-308) L 05/28/17 13:10 CK-MB (CK-2) < 1.0 ng/mL (0-4.0) 05/28/17 13:10 CK/CKMB % Calc 5.9 % (<4) 05/28/17 13:10 Troponin I 0.08 ng/mL (0-1.5) 05/28/17 13:10 Total Protein 6.2 g/dL (6.4-8.2) L 05/28/17 13:10 Albumin 2.2 g/dL (3.4-5.0) L 05/28/17 13:10 Globulin 4.0 g/dL (2.5-4.5) 05/28/17 13:10 Albumin/Globulin Ratio 0.6 Ratio (1.1-2.1) L 05/28/17 13:10 Stool Description Fob tube 05/28/17 13:21 Stl Occult Blood (IFOB) Positive (NEGATIVE) A 05/28/17 13:21 - XRAY XRAY Interpreted by: Radiologist (Probable chronic subdural hematoma overlying the right frontal convexity with some extension over the right parietal convexity. This finding is new in the interval since the prior head CT from March) - Diagnosis Discharge Problem: Subdural hematoma - Discharge Plan Condition: Stable - Follow ups/Referrals Follow ups/Referrals: Xander Keller [Primary Care Provider] - 3 days - Instructions
[2017-05-28 13:24] LABS: BASOPHILS % (AUTO) 0.6 % (0.2-1.0); EOSINOPHILS # (AUTO) 0.2 x10^3/uL (0.0-0.2); EOSINOPHILS % (AUTO) 3.2 % (0.9-2.9); HEMATOCRIT 34.5 % (42.0-54.0); HEMOGLOBIN 11.8 g/dL (13.5-18.0); LYMPHOCYTES # (AUTO) 1.2 X10^3/uL (1.3-2.9); LYMPHOCYTES % (AUTO) 23.3 % (21.0-51.0); MEAN CORPUSCULAR HEMOGLOBIN 33.3 pg (27.0-34.0); MEAN CORPUSCULAR HGB CONC 34.1 g/dL (33.0-35.0); MEAN CORPUSCULAR VOLUME 97.5 fL (80.0-100.0); MEAN PLATELET VOLUME 7.4 fL (7.4-11.0); MONOCYTES # (AUTO) 0.6 x10^3/uL (0.3-0.8); MONOCYTES % (AUTO) 11.5 % (0.0-13.0); NEUTROPHILS # (AUTO) 3.2 x10^3/uL (2.2-4.8); NEUTROPHILS % (AUTO) 61.4 % (42.0-75.0); PLATELET COUNT 135 X10^3/uL (150.0-450.0); RED BLOOD COUNT 3.54 X10^6/uL (4.7-6.0); RED CELL DISTRIBUTION WIDTH 18.2 % (11.6-16.5); WHITE BLOOD COUNT 5.3 X10^3/uL (3.6-10.0)
[2017-05-28] MEDS ORDERED: NS 1000 ML 1,000 ML IV ONE (13:30)
[2017-05-28 13:43] LABS: BLOOD UREA NITROGEN 15 mg/dL (7-18); CALCIUM 8.6 mg/dL (8.5-10.1); CARBON DIOXIDE 37.5 mmol/L (21-32); CHLORIDE 101 mmol/L (98-107); CREATININE 1.22 mg/dL (0.70-1.30); SODIUM 140 mmol/L (136-145); TROPONIN I 0.08 ng/mL (0-1.5); eGFR BLACK RACES > 60 (>60); eGFR NON BLACK RACES > 60 (>60)
[2017-05-28 13:46] LABS: ALANINE AMINOTRANSFERASE 22 Units/L (12-78); ALBUMIN 2.2 g/dL (3.4-5.0); ALKALINE PHOSPHATASE 109 Units/L (46-116); ASPARTATE AMINO TRANSFERASE 61 Units/L (15-37); CKMB % 5.9 % (<4); CREATINE KINASE 17 Units/L (39-308); CREATINE KINASE MB < 1.0 ng/mL (0-4.0); TOTAL PROTEIN 6.2 g/dL (6.4-8.2)
--- NOTE | 2017-05-28 13:49 | CT ---
STUDY: CT HEAD WITHOUT CONTRAST HISTORY: Altered mental status. Dehydration. COMPARISON: April 25, 2017. TECHNIQUE: Multiple axial images of the head were obtained from the skull base to the vertex without administration of IV contrast. Automated exposure control (AEC) was utilized to adjust the MA and/or kV. Findings: The sulci, cisterns and ventricles are prominent consistent with diffuse volume loss. There are scattered foci of low attenuation in the periventricular and subcortical white matter of fernando th hemispheres. This is a nonspecific finding which likely represents microangiopathic change in a pa tient of this age. There is a complex predominantly low-attenuation extra-axial fluid collection overlying the right fro ntal convexity, that measures approximately 1.5 cm maximum thickness. There is some extension over th e right parietal lobe towards the vertex. There is no evidence of acute territorial infarction, parenchymal hemorrhage, mass, mass effect or mi dline shift. There is no evidence of acute osseous abnormality or significant soft tissue swelling. IMPRESSION: 1. Probable chronic subdural hematoma overlying the right frontal convexity, with some extension over the right parietal convexity. This finding is new in the interval since the prior head CT from [facility] 2016. 2. Nonspecific white matter change and volume loss as described. Reported By:
[2017-05-28] MEDS ORDERED: NS 1000 ML 1,000 ML IV SCH (14:00)
== END 2017-05-28 15:00 | disposition short-term general hospital (02) ==
LOC: ER 13:06
DX: S06.5X0A Traumatic subdural hemorrhage without loss of consciousness, initial encounter (principal); Z79.01 Long term (current) use of anticoagulants; Y33.XXXA Other specified events, undetermined intent, initial encounter; Y92.9 Unspecified place or not applicable
CPT/HCPCS: 36415; 70450; 80053; 82270; 82550; 82553; 84484; 85025; 85610; 93005; 93010; 96365; 96367; 99284; 99285

== ENCOUNTER 2017-06-12 21:04 | Observation (INO) | payer OTHER ==
[2017-06-12 23:22] VITALS: BMI 30.2
[2017-06-13] MEDS ORDERED: BUTT CREAM (COMPOUND) TOP PRN (03:14)
[2017-06-13 05:25] LABS: BASOPHILS % (AUTO) 0.5 % (0.2-1.0); EOSINOPHILS # (AUTO) 0.1 x10^3/uL (0.0-0.2); EOSINOPHILS % (AUTO) 1.6 % (0.9-2.9); HEMATOCRIT 33.5 % (42.0-54.0); HEMOGLOBIN 11.5 g/dL (13.5-18.0); LYMPHOCYTES % (AUTO) 20.2 % (21.0-51.0); MEAN CORPUSCULAR HEMOGLOBIN 33.3 pg (27.0-34.0); MEAN CORPUSCULAR HGB CONC 34.4 g/dL (33.0-35.0); MEAN CORPUSCULAR VOLUME 96.9 fL (80.0-100.0); MEAN PLATELET VOLUME 8.1 fL (7.4-11.0); MONOCYTES # (AUTO) 0.3 x10^3/uL (0.3-0.8); MONOCYTES % (AUTO) 5.9 % (0.0-13.0); NEUTROPHILS # (AUTO) 3.4 x10^3/uL (2.2-4.8); NEUTROPHILS % (AUTO) 71.8 % (42.0-75.0); PLATELET COUNT 97 X10^3/uL (150.0-450.0); RED BLOOD COUNT 3.46 X10^6/uL (4.7-6.0); RED CELL DISTRIBUTION WIDTH 18.2 % (11.6-16.5); WHITE BLOOD COUNT 4.7 X10^3/uL (3.6-10.0)
[2017-06-13 05:29] LABS: ALANINE AMINOTRANSFERASE 35 Units/L (12-78); ALBUMIN 1.8 g/dL (3.4-5.0); ALKALINE PHOSPHATASE 180 Units/L (46-116); ASPARTATE AMINO TRANSFERASE 83 Units/L (15-37); BLOOD UREA NITROGEN 30 mg/dL (7-18); CALCIUM 8.2 mg/dL (8.5-10.1); CARBON DIOXIDE 29.1 mmol/L (21-32); CHLORIDE 106 mmol/L (98-107); COR NA(FOR HYPERGLY) 144 mmol/L (136-145); CREATININE 1.01 mg/dL (0.70-1.30); SODIUM 143 mmol/L (136-145); TOTAL PROTEIN 5.4 g/dL (6.4-8.2); eGFR BLACK RACES > 60 (>60); eGFR NON BLACK RACES > 60 (>60)
--- NOTE | 2017-06-13 06:01 | RAD ---
Examination: Right lower leg, AP and lateral views History: Pain Comparison reference: 09/18/2014 Findings: There is an intramedullary nail through the length of the tibia, fixed with proximal transv erse screws in the tibial metaphysis. There is a healed spiral-oblique fracture of the proximal tibia . There is periosteal new bone and cortical remodeling. The fracture appears essentially healed. Ther e is no evidence for hardware failure or acute injury. Impression: Status post ORIF of right tibial fracture. She Reported By:
[2017-06-13] MEDS: NS 1000 ML 1,000 ML IV SCH (16:00)
--- NOTE | 2017-06-13 16:16 | DR.CONSULT ---
Consult - Consultation for Day of: Date: 06/13/17 - Chief Complaint Chief Complaint: Drainage from laparoscopic port site. - Allergies Allergies/Adverse Reactions: Allergies Allergy/AdvReac Type Severity Reaction Status Date / Time morphine Allergy Verified 05/28/17 13:04 shrimp Allergy Verified 05/28/17 13:04 - History of Present Illness History of Present Illness: The patient is a 71 year old male who suffered a closed head injury after a fall while on antiplatelet therapy. The patient was transferred to a tertiary center for neurosurgery evaluation. He developed dysphagia and underwent a gastrostomy tube placement at the outside hospital. Apparently, Mr. Reid underwent a paracentesis prior to an attempted laparoscopic assisted gastrostomy but eventually a pull type percutaneous gastrostomy tube placement. A second paracentesis was performed after the PEG was placed. The patient was discharged to a [facility]. Persistent drainage was noted from a laparoscopic port site superior to the umbilicus that saturated pads and gowns. The patient does not have a history of cirrhosis. Hypoalbuminemia was noted at the outside hospital. Current albumin is 1.8. (+ ) h/o CAD. No known CHF. Last ejection fraction on echo was > 45%. (+) Mild LE edema. Surgery was consulted due to persistent drainage. Cultures of drainage are pending. The patient has tolerated tube feeds. - Past Medical History Past Medical History: Anxiety, Arthritis, Coronary Artery Disease, Diabetes, Dyslipidemia, Hypertension, [place] - Past Surgical History Surgical History: CABG/Valve Surgery, Ortho Surgery, Other - Family History Family Medical History: Diabetes Mellitus, Coronary Artery Disease, Hypertension - Social History Have you used tobacco products in the last 12 months: No Type of Tobacco Use: None Alcohol Use: None Drug Use: None - Medications Home Medications: Amino Acids/Protein Hydrolys [Pro-Stat [facility] Liquid Packet] 30 ml PEG BID [History Confirmed 06/13/17] Fluconazole [DIFLUCAN TAB 150 MG *] 150 mg PEG DAILY 06/13/17 [History Confirmed 06/13/17] Furosemide [Lasix] 40 mg PEG BID 06/13/17 [History Confirmed 06/13/17] Insulin R (Regular) [Humulin R] 2 - 14 unit SC PRN PRN 06/13/17 [History Confirmed 06/13/17] Nystatin Susp [NYSTATIN ORAL SUSP *] 5 ml PO QID 06/13/17 [History Confirmed ] Zinc Sulfate 220 mg PEG DAILY 06/13/17 [History Confirmed 06/13/17] - Review of Systems Constitutional: Weakness Eyes: No Symptoms Reported ENT: No Symptoms Reported Respiratory: No Symptoms Reported Cardiovascular: Edema Gastrointestinal: Other (See HPI.) Genitourinary: No Symptoms Reported Musculoskeletal: No Symptoms Reported Skin: Wound (Sacral decubitus) Neurological: Weakness, Confusion - Physical Exam Vital Signs: Temperature 97.8 F Pulse Rate [Right Brachial] 78 Pulse Rate [Left Brachial] 77 Respiratory Rate 24 Blood Pressure [Left Arm] 82/43 Blood Pressure [Right Arm] 81/46 Blood Pressure 95/54 O2 Sat by Pulse Oximetry 93 Oriented: Unable to test Eyes: Normal Nose: Normal Respiratory: Diminished Throughout Cardiovascular: Normal : Normal Auscultation: Bowel Sounds: Normal Tenderness: Normal Skin: Other (Laparoscopic port superior to umbilicus with persistent serous drainage. (-) erythema. (-) induration. Skin edges approximated with small defect. No signs of seroma.) Musculoskeletal: Normal Mood Description: Withdrawn Affect: Flat Speech Pattern: Aphasic - Plan Plan: 71 year old male status post attempted laparoscopic assisted gastrostomy placement with persistent serous drainage. Recent history of abdominal ascites. No signs of infection on exam. No signs to suspect bowel injury at this time. Paracentesis performed at OSH before and after laparoscopy. Likely mutlifactorial. Suspect low albumin and mild CHF. BUN / Cr noted. No need for emergent surgical intervention. Check abdominal u/s to assess amount of ascites fluid. Maximize diuresis to avoid renal injury. Increase protein intake with supplementation to tube feeds. If persist, may need skin closure versus exam under anesthesia with fascial closure or intra-abdominal drain placement until medically optimized to control drainage.
--- NOTE | 2017-06-13 16:25 | RAD ---
Examination: AP chest History: SOB Comparison reference: 04/25/2017 Findings: Continued mild cardiomegaly, transverse diameter accentuated by partial expiration and nons tandard projection. Surgical wires are noted in the sternum. There is central pulmonary vascular dila tation. Linear subsegmental atelectasis noted at the right base. Impression: Stable cardiac prominence with postsurgical findings. Mild pulmonary vascular congestion and right basal atelectasis, accentuated by incomplete inspiration and low lung volumes. Reported By:
--- NOTE | 2017-06-13 17:00 | US ---
History: Ascites Study: Ultrasound imaging of all quadrants of the abdomen Comparison: None Findings: There is moderate ascites with pockets largest in the left quadrant measuring up to 3 cm. Impression: [id number] ascites Reported By:
[2017-06-13] MEDS: ALBUMIN HUMAN 25%- 100ML 100 ML IV SCH (17:22)
[2017-06-13] MEDS: SNACK - Diabetic Appropriate PO SCH (20:22)
[2017-06-14 04:45] LABS: ALANINE AMINOTRANSFERASE 32 Units/L (12-78); ALBUMIN 2.2 g/dL (3.4-5.0); ALKALINE PHOSPHATASE 159 Units/L (46-116); ASPARTATE AMINO TRANSFERASE 66 Units/L (15-37); BLOOD UREA NITROGEN 39 mg/dL (7-18); CALCIUM 8.5 mg/dL (8.5-10.1); CARBON DIOXIDE 29.6 mmol/L (21-32); CHLORIDE 106 mmol/L (98-107); COR CA(FOR HYPOALB) 9.9 mg/dL (8.5-10.1); COR NA(FOR HYPERGLY) 144 mmol/L (136-145); CREATININE 0.96 mg/dL (0.70-1.30); SODIUM 143 mmol/L (136-145); TOTAL PROTEIN 5.8 g/dL (6.4-8.2); eGFR BLACK RACES > 60 (>60); eGFR NON BLACK RACES > 60 (>60)
[2017-06-14 05:06] LABS: BASOPHILS % (AUTO) 0.6 % (0.2-1.0); EOSINOPHILS # (AUTO) 0.1 x10^3/uL (0.0-0.2); EOSINOPHILS % (AUTO) 2.1 % (0.9-2.9); HEMATOCRIT 34.5 % (42.0-54.0); HEMOGLOBIN 11.9 g/dL (13.5-18.0); LYMPHOCYTES # (AUTO) 0.9 X10^3/uL (1.3-2.9); LYMPHOCYTES % (AUTO) 19.7 % (21.0-51.0); MEAN CORPUSCULAR HEMOGLOBIN 33.5 pg (27.0-34.0); MEAN CORPUSCULAR HGB CONC 34.4 g/dL (33.0-35.0); MEAN CORPUSCULAR VOLUME 97.3 fL (80.0-100.0); MEAN PLATELET VOLUME 8.3 fL (7.4-11.0); MONOCYTES # (AUTO) 0.3 x10^3/uL (0.3-0.8); MONOCYTES % (AUTO) 6.4 % (0.0-13.0); NEUTROPHILS # (AUTO) 3.3 x10^3/uL (2.2-4.8); NEUTROPHILS % (AUTO) 71.2 % (42.0-75.0); PLATELET COUNT 112 X10^3/uL (150.0-450.0); RED BLOOD COUNT 3.55 X10^6/uL (4.7-6.0); RED CELL DISTRIBUTION WIDTH 18.1 % (11.6-16.5); WHITE BLOOD COUNT 4.6 X10^3/uL (3.6-10.0)
[2017-06-14] MEDS: ALBUMIN HUMAN 25%- 100ML 100 ML IV SCH (09:13)
[2017-06-14] MEDS: NS 1000 ML 1,000 ML IV SCH ×2 (09:13→14:50)
--- NOTE | 2017-06-14 11:01 | DR.H&P ---
H&P - History & Physical for Day of: H&P Date: 06/12/17 - Chief Complaint Chief Complaint: INCISION SITE DRAINING - Allergies Allergies/Adverse Reactions: Allergies Allergy/AdvReac Type Severity Reaction Status Date / Time morphine Allergy Verified 05/28/17 13:04 shrimp Allergy Verified 05/28/17 13:04 - History of Present Illness History of Present Illness: IS A 71 YEAR OLD PATIENT OF OURS WHO IS A RESIDENT OF [facility]. SENIOR LIVING STAFF CALLED US REPORTING THAT PATIENTS PEG TUBE WAS CONTINUOUSLY DRAINING. PEG TUBE WAS APPARENTLY PLACED A FEW DAYS AGO IN [place], WHERE PATIENT WAS HOSPITALIZED FOR AN ACUTE HEMORRHAGIC STROKE FOLLOWING A FALL AND INJURING HEAD. A RESULT, PATIENT DEVELOPED DYSPHAGIA, THEREFORE, THE DECISION WAS MADE TO UNDERGO GASTTROMY TUBE PLACEMENT. WHEN PATIENT WAS ASSESSED, LEAKING WOUND WAS FOUND TO BE AN INCISION SITE FROM A PREVIOUS PARACENTESIS. INCISON SITE IS SUPERIOR TO THE UMBILICUS. SPEECH IS NOTED TO BE SLURRED. LUNGS SOUNDS ARE DIMINISHED THROUGHOUT. ABDOMEN IS DISTENDED WITH DECREASED BOWEL SOUNDS NOTED. BILATERAL LOWER EXTREMITIES NOTED WITH 2+ PITTING EDEMA. WE ADMITTED PATIENT FOR FURTHER EVALUATION AND TREATMENT. WE PLANNED TO OBTAIN LABS ON ADMISSION AND CONSULT . ON ADMISSON, PATIENTS VITAL SIGNS WERE 97.8-81-22-92%-79/49. ABNORMAL LAB VALUES INCLUDE THE FOLLOWING: RBC 3.46, HGB 11.5, HCT 33.5, BUN 30, GLUCOSE 145, CALCIUM 8.2, TOTAL BILIRUBIN 1.70, AST 83, ALK PHOS 180, TOTAL PROTEIN 5.4, ALBUMIN 1.8, A/G RATIO 0.5. WE PLAN TO FOLLOW UP WITH AM LABS AND CONTINUE TO MONITOR PATIENT. - Past Medical History Past Medical History: Anxiety, Arthritis, Coronary Artery Disease, Diabetes, Dyslipidemia, Hypertension, [place] - Past Surgical History Surgical History: CABG/Valve Surgery, Ortho Surgery, Other - Family History Family Medical History: Diabetes Mellitus, Coronary Artery Disease, Hypertension - Social History Have you used tobacco products in the last 12 months: No Type of Tobacco Use: None Alcohol Use: None Drug Use: None - Medications Home Medications: Amino Acids/Protein Hydrolys [Pro-Stat [facility] Liquid Packet] 30 ml PEG BID [History Confirmed 06/13/17] Fluconazole [DIFLUCAN TAB 150 MG *] 150 mg PEG DAILY 06/13/17 [History Confirmed 06/13/17] Furosemide [Lasix] 40 mg PEG BID 06/13/17 [History Confirmed 06/13/17] Insulin R (Regular) [Humulin R] 2 - 14 unit SC PRN PRN 06/13/17 [History Confirmed 06/13/17] Nystatin Susp [NYSTATIN ORAL SUSP *] 5 ml PO QID 06/13/17 [History Confirmed ] Zinc Sulfate 220 mg PEG DAILY 06/13/17 [History Confirmed 06/13/17] - Review of Systems Constitutional: Weakness. denies: Fever, Chills, Sweats Eyes: No Symptoms Reported. denies: Pain, Vision Change, Conjunctivae Inflammation, Eyelid Inflammation, Redness, Other ENT: No Symptoms Reported. denies: Ear Pain, Ear Discharge, Nose Pain, Nose Discharge, Nose Congestion, Mouth Pain, Mouth Swelling, Throat Pain, Throat Swelling, Other Respiratory: Shortness of Breath. denies: Cough, Hemoptysis, Sputum, Wheezing Cardiovascular: Edema (BILATERAL LOWER EXTREMITIES ) Gastrointestinal: Abdominal Pain. denies: Nausea, Vomiting, Diarrhea, Constipation, Melena, Hematochezia Genitourinary: No Symptoms Reported. denies: Dysuria, Frequency, Incontinence, Hematuria, Retention, Other Musculoskeletal: No Symptoms Reported. denies: Shoulder Pain, Arm Pain, Back Pain, Hand Pain, Leg Pain, Foot Pain, Neck Pain, Other Skin: Wound (RIGHT SIDE UPPER ABDOMEN INCISION NOTED WITH SEROSANGUINEOUS DRAINAGE) Neurological: Weakness, Change in Speech - Physical Exam Vital Signs: Temperature 97.6 F Pulse Rate [Right Brachial] 84 Pulse Rate [Left Brachial] 77 Respiratory Rate 18 Blood Pressure [Left Arm] 82/43 Blood Pressure [Right Arm] 107/55 Blood Pressure 95/54 O2 Sat by Pulse Oximetry 97 Oriented: Unable to test Eyes: Normal. negative: Blurred Vision, Diplopia, Discharge, Pain, Redness, Photophobia, Other Ear: Normal. negative: Right, Left, Swelling, Ecchymosis, Hemotypanum, Abrasion , Laceration Nose: Normal. negative: Injected, Discharge, Blood, Other Throat: Normal. negative: Tonsillar Hypertrophy, Red, Exudate, Dry, Other Respiratory: Diminished Throughout. negative: Clear Throughout, Rhonchi Throughout, Rales Throughout, Wheezes Throughout, RUL Clear, RML Clear, RLL Clear, TERRIE Clear, LML Clear, LLL Clear, RUL Diminished, RML Diminished, RLL Diminished, TERRIE Diminished, LML Diminished, LLL Diminished, RUL Absent, RML Absent, RLL Absent, TERRIE Absent, LML Absent, LLL Absent, RUL Rhonchi, RML Rhonchi , RLL Rhonchi, TERRIE Rhonchi, LML Rhonchi, LLL Rhonchi, RUL Insp. Wheeze, RML Insp. Wheeze, RLL Insp. Wheeze, TERRIE Insp.Wheeze, LML Insp.Wheeze, LLL Insp.Wheeze, RUL Exp. Wheeze, RML Exp. Wheeze, RLL Exp. Wheeze, TERRIE Exp. Wheeze , LML Exp. Wheeze, LLL Exp. Wheeze, RUL Rales, RML Rales, RLL Rales, TERRIE Rales, LML Rales, LLL Rales, RUL Rub, RML Rub, RLL Rub, TERRIE Rub, LML Rub, LLL Rub, RUL Squeak, RML Squeak, RLL Squeak, TERRIE Squeak, LML Squeak, LLL Squeak Cardiovascular: Edema (BILATERAL LOWER EXTREMITIES ). negative: Tachycardia, Bradycardia, Irregular, S3, S4, Systolic, Diastolic, Murmur, Other : Normal. negative: Dysuria, Hematuria, Frequency, Discharge, Testicular Pain , Bleeding, , Other Auscultation: Bowel Sounds: Decreased. negative: Normal, Bruit, Absent, Increased, High Pitched, Other Tenderness: Diffuse, RUQ Skin: Wound (DRAINAGE NOTED TO INCISION SITE ON RUQ ) Psychiatric: Normal Mood Description: Calm Affect: Normal Speech Pattern: Unclear, Slurred - Assessment/Plan (1) Wound drainage Status: Acute Plan: WOUND CULTURE, WOUND CARE, CONSULT , [place] TO [facility]
[2017-06-14] MEDS ORDERED: TYLENOL 325 MG TAB PO PRN (14:35)
[2017-06-14] MEDS: HumuLIN R SUBCUT PRN ×2 (16:17→21:09)
[2017-06-14] MEDS: SNACK - Diabetic Appropriate PO SCH (21:10)
--- NOTE | 2017-06-14 21:49 | PCM.PROG ---
Progress Note - Progress Note for Day of Date: 06/13/17 - Subjective Subjective: WAS ADMITTED FOR MODERATE DRAINAGE TO AN ABDOMINAL INCISION. TODAY, HE IS ALERT AND ORIENTED, LYING IN BED ON MORNING ROUNDS. PATIENT'S DAUGHTER AND ARE AT BEDSIDE. TODAY, HE CONTINUES WITH DRAINAGE TO RUQ WOUND. DRAINAGE IS NOTED TO BE SEROSANGUINEOUS. A STERILE DRESSING WAS APPLIED TO WOUND. ABDOMEN IS DISTENDED AND NOTED WITH MILD, DIFFUSE TENDERNESS. LUNGS ARE NOTED WITH DIMINISHED LUNG SOUNDS THROUGHOUOT. BILATERAL LOWER EXTREMITIES CONTINUE WITH 1+ PITTING EDEMA. HIS VITAL SIGNS THIS MORNING ARE 97.8-78-24-93%-88/50. ABNORMAL LAB VALUES INCLUDE THE FOLLOWING: RBC 3.46, HGB 11.5, HCT 33.5, BUN 30, GLUCOSE 145, CALCIUM 8.2, TOTAL BILI 1.70, AST 83, ALK PHOS 180, TOTAL PROTEIN 5.4, ALBUMIN 1.8. AN ABDOMINAL ULTRASOUND WAS ORDERED AND REPORTED MILD TO MODERATE ABDOMINAL ASCITES. CONSULTED WITH PATIENT TODAY. HE DID NOT RECOMMEND SURGICAL INTERVENTION AT THIS TIME. HE REPORTED THAT WOUND MAY NEED SUTURED IF DRAINAGE CONTINUES. TODAY, WE WILL START ALBUMIN 25% IV DAILY. OTHERWISE, WE WILL CONTINUE WITH CURRENT PLAN OF CARE AND CONTINUE TO MONITOR PATIENT. WE WILL FOLLOW UP WITH AM LABS. - Past Medical Family Social History Past Med/Fam/Surg Hx: No changes since H&P Allergies: Allergies morphine Allergy (Verified 05/28/17 13:04) shrimp Allergy (Verified 05/28/17 13:04) - Review of Systems ROS: No change since H&P - Vital Signs and I&O's Vital Signs: Temperature 97.6 F Pulse Rate [Right Brachial] 87 Pulse Rate [Left Brachial] 77 Respiratory Rate 16 Blood Pressure [Left Arm] 82/43 Blood Pressure [Right Arm] 136/63 Blood Pressure 95/54 O2 Sat by Pulse Oximetry 96 Intake and Output: Intake & Output 06/12/17 06/13/17 06/14/17 06/15/17 11:59 11:59 11:59 11:59 Intake Total 0 1924 1220 Output Total 750 Balance 0 1924 470 - Physical Exam Oriented: Normal Eyes: Normal. negative: Blurred Vision, Diplopia, Discharge, Pain, Redness, Photophobia, Other Ear: Normal. negative: Right, Left, Swelling, Ecchymosis, Hemotypanum, Abrasion , Laceration Nose: Normal. negative: Injected, Discharge, Blood, Other Throat: Normal. negative: Tonsillar Hypertrophy, Red, Exudate, Dry, Other Respiratory: Generalized, Diminished Cardiovascular: Edema (BILATERAL LOWER EXTREMITIES ). negative: Tachycardia, Bradycardia, Irregular, S3, S4, Systolic, Diastolic, Murmur, Other : Normal. negative: Dysuria, Hematuria, Frequency, Discharge, Testicular Pain , Bleeding, , Other Auscultation: Bowel Sounds: Decreased. negative: Normal, Bruit, Absent, Increased, High Pitched, Other Palpation: Normal Tenderness: Diffuse, RUQ, Mild Skin: Wound (DRAINAGE NOTED TO INCISION SITE ON RUQ ) Musculoskeletal: Normal Psychiatric: Normal Mood Description: Calm Affect: Normal Speech Pattern: Unclear - Laboratory and Diagnostics Result Diagrams: 06/14/17 03:45 06/14/17 03:45 Labs: 06/13/17 11:00 Drainage Gram Stain - Final 06/13/17 11:00 Drainage Wound Culture - Preliminary Laboratory WBC 4.6 X10^3/uL (3.6-10.0) 06/14/17 03:45 RBC 3.55 X10^6/uL (4.7-6.0) L 06/14/17 03:45 Hgb 11.9 g/dL (13.5-18.0) L 06/14/17 03:45 Hct 34.5 % (42.0-54.0) L 06/14/17 03:45 MCV 97.3 fL (80.0-100.0) 06/14/17 03:45 MCH 33.5 pg (27.0-34.0) 06/14/17 03:45 MCHC 34.4 g/dL (33.0-35.0) 06/14/17 03:45 RDW 18.1 % (11.6-16.5) H 06/14/17 03:45 Plt Count 112 X10^3/uL (150.0-450.0) L 06/14/17 03:45 MPV 8.3 fL (7.4-11.0) 06/14/17 03:45 Neut % 71.2 % (42.0-75.0) 06/14/17 03:45 Lymph % 19.7 % (21.0-51.0) L 06/14/17 03:45 [place] % 6.4 % (0.0-13.0) 06/14/17 03:45 Eos % 2.1 % (0.9-2.9) 06/14/17 03:45 Baso % 0.6 % (0.2-1.0) 06/14/17 03:45 Neut # 3.3 x10^3/uL (2.2-4.8) 06/14/17 03:45 Lymph # 0.9 X10^3/uL (1.3-2.9) L 06/14/17 03:45 [place] # 0.3 x10^3/uL (0.3-0.8) 06/14/17 03:45 Eos # 0.1 x10^3/uL (0.0-0.2) 06/14/17 03:45 Baso # 0.0 X10^3/uL (0.0-0.1) 06/14/17 03:45 Absolute Nucleated RBC 0.2 /100WBC 06/14/17 03:45 Sodium 143 mmol/L (136-145) 06/14/17 03:45 Corrected Sodium 144 mmol/L (136-145) 06/14/17 03:45 Potassium 3.6 mmol/L (3.5-5.1) 06/14/17 03:45 Chloride 106 mmol/L (98-107) 06/14/17 03:45 Carbon Dioxide 29.6 mmol/L (21-32) 06/14/17 03:45 BUN 39 mg/dL (7-18) H 06/14/17 03:45 Creatinine 0.96 mg/dL (0.70-1.30) 06/14/17 03:45 Est GFR (MDRD) Af Amer > 60 (>60) 06/14/17 03:45 Est GFR (MDRD) Non-Af > 60 (>60) 06/14/17 03:45 Glucose 149 mg/dL (65-99) H 06/14/17 03:45 POC Glucose (mg/dL) 178 mg/dL (65-99) H 06/14/17 20:21 Calcium 8.5 mg/dL (8.5-10.1) 06/14/17 03:45 Corrected Calcium 9.9 mg/dL (8.5-10.1) 06/14/17 03:45 Total Bilirubin 1.80 mg/dL (0.2-1.0) H 06/14/17 03:45 AST 66 Units/L (15-37) H 06/14/17 03:45 ALT 32 Units/L (12-78) 06/14/17 03:45 Alkaline Phosphatase 159 Units/L (46-116) H 06/14/17 03:45 Total Protein 5.8 g/dL (6.4-8.2) L 06/14/17 03:45 Albumin 2.2 g/dL (3.4-5.0) L 06/14/17 03:45 Globulin 3.6 g/dL (2.5-4.5) 06/14/17 03:45 Albumin/Globulin Ratio 0.6 Ratio (1.1-2.1) L 06/14/17 03:45 - Plan (1) Wound drainage Status: Acute Plan: WOUND CULTURE, WOUND CARE, CONSULT , CONTINUE TO [facility]
[2017-06-14] MEDS ORDERED: VISTARIL PO PRN (23:53)
[2017-06-14] MEDS ORDERED: VISTARIL PO ONE (23:57)
[2017-06-15] MEDS: NS 1000 ML 1,000 ML IV SCH (00:43)
[2017-06-15] MEDS: HumuLIN R SUBCUT PRN ×2 (05:52→12:22)
[2017-06-15 05:57] LABS: ALANINE AMINOTRANSFERASE 37 Units/L (12-78); ALBUMIN 2.5 g/dL (3.4-5.0); ALKALINE PHOSPHATASE 288 Units/L (46-116); ASPARTATE AMINO TRANSFERASE 73 Units/L (15-37); BLOOD UREA NITROGEN 31 mg/dL (7-18); CALCIUM 8.5 mg/dL (8.5-10.1); CARBON DIOXIDE 31.3 mmol/L (21-32); CHLORIDE 108 mmol/L (98-107); COR CA(FOR HYPOALB) 9.7 mg/dL (8.5-10.1); COR NA(FOR HYPERGLY) 148 mmol/L (136-145); CREATININE 0.82 mg/dL (0.70-1.30); SODIUM 146 mmol/L (136-145); eGFR BLACK RACES > 60 (>60); eGFR NON BLACK RACES > 60 (>60)
[2017-06-15 06:28] LABS: BASOPHILS % (AUTO) 0.4 % (0.2-1.0); EOSINOPHILS # (AUTO) 0.1 x10^3/uL (0.0-0.2); EOSINOPHILS % (AUTO) 1.9 % (0.9-2.9); HEMATOCRIT 35.2 % (42.0-54.0); LYMPHOCYTES % (AUTO) 22.1 % (21.0-51.0); MEAN CORPUSCULAR HEMOGLOBIN 33.5 pg (27.0-34.0); MEAN CORPUSCULAR HGB CONC 34.1 g/dL (33.0-35.0); MEAN CORPUSCULAR VOLUME 98.1 fL (80.0-100.0); MEAN PLATELET VOLUME 8.2 fL (7.4-11.0); MONOCYTES # (AUTO) 0.3 x10^3/uL (0.3-0.8); MONOCYTES % (AUTO) 7.9 % (0.0-13.0); NEUTROPHILS % (AUTO) 67.7 % (42.0-75.0); PLATELET COUNT 133 X10^3/uL (150.0-450.0); RED BLOOD COUNT 3.58 X10^6/uL (4.7-6.0); WHITE BLOOD COUNT 4.4 X10^3/uL (3.6-10.0)
[2017-06-15] MEDS ORDERED: NEURONTIN CAP 300 MG PO SCH (08:00)
[2017-06-15 08:12] VITALS: BP 133/64
[2017-06-15] MEDS ORDERED: OMEGA PEG SCH (09:00)
[2017-06-15] MEDS ORDERED: SOTALOL HCL 80 MG PEG SCH (09:00)
[2017-06-15] MEDS ORDERED: PATIENT'S HOME MEDICATION (Metformin Hcl [Metformin Hcl] 1,000 MG) PEG SCH (09:00)
[2017-06-15] MEDS ORDERED: NYSTATIN SUSP PO SCH (09:00)
[2017-06-15] MEDS ORDERED: [UNRECOGNIZED DRUG - OTHER] PEG SCH (09:00)
[2017-06-15] MEDS ORDERED: PATIENT'S HOME MEDICATION (Amino Acids/Protein Hydrolys [Pro-Stat Awc Liquid Packet] 30 ML PEG SCH (09:00)
[2017-06-15] MEDS ORDERED: ZINC SULFATE PEG SCH (09:00)
[2017-06-15] MEDS ORDERED: PriLOSEC PO SCH (09:00)
[2017-06-15] MEDS ORDERED: FATTY ACIDS PEG SCH (09:00)
[2017-06-15] MEDS ORDERED: LASIX PEG SCH (09:00)
[2017-06-15] MEDS ORDERED: DIFLUCAN PEG SCH (09:00)
[2017-06-15] MEDS ORDERED: PATIENT'S HOME MEDICATION (Glipizide [Glipizide 10 Mg] 10 MG) PEG SCH (09:00)
[2017-06-15] MEDS ORDERED: FISH OIL PEG SCH (09:00)
[2017-06-15] MEDS ORDERED: ZOLOFT PO SCH (09:00)
[2017-06-15] MEDS: ALBUMIN HUMAN 25%- 100ML 100 ML IV SCH (09:51)
[2017-06-15] MEDS ORDERED: ZOLOFT PO ONE (09:59)
[2017-06-15] MEDS ORDERED: GLUCOTROL PEG SCH (10:00)
[2017-06-15] MEDS ORDERED: GLUCOPHAGE PEG SCH (10:00)
[2017-06-15] MEDS ORDERED: BETAPACE AF PO SCH (10:00)
[2017-06-15] MEDS ORDERED: GLUCOPHAGE ONE (10:07)
[2017-06-15] MEDS ORDERED: LOVAZA PO SCH (21:00)
[2017-06-15] MEDS ORDERED: NIACIN 500 MG PEG SCH (21:00)
[2017-06-15] MEDS ORDERED: TRICOR TAB 145 MG PO SCH (21:00)
[2017-06-15] MEDS ORDERED: NIASPAN ER TAB 500 MG PO SCH (21:00)
[2017-06-15] MEDS ORDERED: PROSCAR PEG SCH (21:00)
[2017-06-15] MEDS ORDERED: PRAZOSIN HCL 3 MG PEG SCH (21:00)
== END 2017-06-15 12:45 ==
LOC: MED/SURG 21:04
PROVIDERS: ADMIT Internal Medicine; ATTEND Internal Medicine
DX: T81.4XXA Infection following a procedure, initial encounter (principal); L02.818 Cutaneous abscess of other sites; R18.8 Other ascites; Z91.81 History of falling; B96.29 Other Escherichia coli [E. coli] as the cause of diseases classified elsewhere; B95.1 Streptococcus, group B, as the cause of diseases classified elsewhere; D64.89 Other specified anemias; R60.0 Localized edema; I25.10 Atherosclerotic heart disease of native coronary artery without angina pectoris; E11.65 Type 2 diabetes mellitus with hyperglycemia; E78.2 Mixed hyperlipidemia; R06.02 Shortness of breath; R26.89 Other abnormalities of gait and mobility; R47.81 Slurred speech; L89.152 Pressure ulcer of sacral region, stage 2; Z86.73 Personal history of transient ischemic attack (TIA), and cerebral infarction without residual deficits
CPT/HCPCS: 36415; 71010; 73590; 76705; 80053; 85025; 87070; 87075; 87077; 87186; 87205; 97535; A4222; P9047; Q0177; G0378; J1815

== ENCOUNTER → 2017-06-27 | Outpatient (CLI) | payer OTHER ==
[2017-06-15 08:12] VITALS: BP 133/64
--- NOTE | 2017-06-28 08:50 | CT ---
History: Altered mental status Study: CT head without contrast. Sagittal and coronal reformations were provided. Comparison: May 28, 2017 Findings: There is a low-attenuation right subdural fluid collection that is increased in thickness c ompared to April the measuring up to 2.2 cm maximum thickness. There are few septations. No acute b lood density is associated with this collection. There are prominent subarachnoid spaces. There is ef facement of right parietal sulci. There is no midline shift. The calvarium is intact. The paranasal s inuses are clear. Impression: Increasing size of low-attenuation right subdural fluid collection without acute hemorrha ge demonstrated. Reported By:
== END ==
LOC: RAD 16:15
PROVIDERS: ATTEND Internal Medicine
DX: R41.82 Altered mental status, unspecified (principal); R27.8 Other lack of coordination
CPT/HCPCS: 70450

== ENCOUNTER 2017-06-29 13:10 | Inpatient (IN) | payer OTHER ==
[2017-06-29] MEDS ORDERED: NS 1000 ML 1,000 ML IV ONE (14:06)
[2017-06-29] MEDS ORDERED: NS 1000 ML 1,000 ML ONE (14:07)
--- NOTE | 2017-06-29 14:08 | DR.GENAD ---
HPI - PCP Primary Care Physician: karen - Complaint/Symptoms Chief Complaint:: PT SENT FROM [facility] BECAUSE OF AMS THAT IS WORSE. PT IS NON VERBAL AT TRIAGE. HE WILL GROAN AND MOVE LEFT ARM TOWARD HEAD. Self Treatment fo Chief Complaint: PT HAD CT DONE WHICH SHOWS INCREASED FLUID ON THE BRAIN - Source History Provided: [facility] - Mode of Arrival Mode of Arrival: Stretcher - Timing Onset of Chief Complaint: 06/29/17 PMH - PMH Past Medical History: Yes Past Medical History: Anxiety, Arthritis, Coronary Artery Disease, CVA, Diabetes , Dyslipidemia, Hypertension, [place] Past Medical History Comment: BRAIN BLEED Past Surgical History: Yes Surgical History: CABG/Valve Surgery, Ortho Surgery, Other Past Surgical History Comment: PEG TUBE, COLOSTOMY - Family History History of Family Medical Conditions: Yes Family Medical History: Diabetes Mellitus, Coronary Artery Disease, Hypertension - Social History Alcohol Use: None Do you use any recreational Drugs:: No Lives With: Other Lives Where: [facility] - infectious screening In the last 2 months have you had wt loss of >10#?: NO Have you had fever, night sweats or hemotysis?: No Have you traveled outside the country in the last 6 months?: No Isolation: Standard ROS - Review of Systems Eyes: No Symptoms Reported ENTM: No Symptoms Reported Respiratoy: No Symptoms Reported Cardiovascular: No Symptoms Reported Gastrointestinal/Abdominal: No Symptoms Reported Genitourinary: No Symptoms Reported Neurological: No Symptoms Reported Musculoskeletal: No Symptoms Reported Integumentary: Change in Color, Bruises (Ecchymosis) Hematologic/Lymphatic: No Symptoms Reported Endocrine: No Symptoms Reported Psychiatric: No Symptoms Reported All Other Systems: Reviewed and Negative PE - Vital Signs Vitals: Temperature 97.6 F Pulse Rate 81 Respiratory Rate 20 Blood Pressure [Right Calf] 133/64 Blood Pressure [Left Arm] 82/43 Blood Pressure [Right Arm] 133/63 Blood Pressure 98/52 O2 Sat by Pulse Oximetry 95 - General Limitations: No Limitations General Appearance: Alert - Head Head Exam: Normal Inspection, Atraumatic - Eyes Eye exam: Normal Appearance, PERRL, EOMI - ENT ENT Exam: Normal Exam External Ear Exam: Normal External Inspection TM/Canal Exam: Bilateral Normal Nose Exam: Normal Nose Exam Mouth Exam: Lip Swelling (cracked), Other (dry) Throat Exam: Normal Inspection - Neck Neck Exam: Normal Inspection - Chest Chest Inspection: Normal Inspection - Respiratory Respiratory Exam: Normal Lung Sounds Bilat Respiratory Exam: Bilateral Clear to Auscultation - Cardiovascular Cardiovascular Exam: Regular Rate - Abdominal Exam Abdominal Exam: Normal Inspection Abdominal Tenderness: negative: RUQ, RLQ, LUQ, LLQ, Epigastrium, Suprapubic, Diffuse, Mild, Moderate, Severe, Other - Extremities Extremities Exam: Normal Inspection, Full ROM - Back Back Exam: Normal Inspection - Neurologic Neurological Exam: Alert, Oriented X3, CN II-XII Intact - Psychiatric Psychiatric Exam: Normal Affect, Normal Mood - Skin Skin Exam: Warm, Dry, Intact, Rash Course - Reevaluation 1st: Unchanged ROR - Labs Reviewed Result Diagrams: 06/29/17 13:55 06/29/17 13:55 Laboratory: WBC 4.5 X10^3/uL (3.6-10.0) 06/29/17 13:55 RBC 3.51 X10^6/uL (4.7-6.0) L 06/29/17 13:55 Hgb 12.2 g/dL (13.5-18.0) L 06/29/17 13:55 Hct 34.7 % (42.0-54.0) L 06/29/17 13:55 MCV 99.0 fL (80.0-100.0) 06/29/17 13:55 MCH 34.7 pg (27.0-34.0) H 06/29/17 13:55 MCHC 35.0 g/dL (33.0-35.0) 06/29/17 13:55 RDW 16.4 % (11.6-16.5) 06/29/17 13:55 Plt Count 122 X10^3/uL (150.0-450.0) L 06/29/17 13:55 MPV 8.1 fL (7.4-11.0) 06/29/17 13:55 Neut % 69.8 % (42.0-75.0) 06/29/17 13:55 Lymph % 18.1 % (21.0-51.0) L 06/29/17 13:55 [place] % 9.7 % (0.0-13.0) 06/29/17 13:55 Eos % 2.0 % (0.9-2.9) 06/29/17 13:55 Baso % 0.4 % (0.2-1.0) 06/29/17 13:55 Neut # 3.1 x10^3/uL (2.2-4.8) 06/29/17 13:55 Lymph # 0.8 X10^3/uL (1.3-2.9) L 06/29/17 13:55 [place] # 0.4 x10^3/uL (0.3-0.8) 06/29/17 13:55 Eos # 0.1 x10^3/uL (0.0-0.2) 06/29/17 13:55 Baso # 0.0 X10^3/uL (0.0-0.1) 06/29/17 13:55 Absolute Nucleated RBC 0.2 /100WBC 06/29/17 13:55 Sodium 137 mmol/L (136-145) 06/29/17 13:55 Corrected Sodium 137 mmol/L (136-145) 06/29/17 13:55 Potassium 4.5 mmol/L (3.5-5.1) 06/29/17 13:55 Chloride 100 mmol/L (98-107) 06/29/17 13:55 Carbon Dioxide 32.1 mmol/L (21-32) H 06/29/17 13:55 BUN 29 mg/dL (7-18) H 06/29/17 13:55 Creatinine 0.82 mg/dL (0.70-1.30) 06/29/17 13:55 Est GFR (MDRD) Af Amer > 60 (>60) 06/29/17 13:55 Est GFR (MDRD) Non-Af > 60 (>60) 06/29/17 13:55 Glucose 118 mg/dL (65-99) H 06/29/17 13:55 Calcium 8.3 mg/dL (8.5-10.1) L 06/29/17 13:55 Corrected Calcium 9.7 mg/dL (8.5-10.1) 06/29/17 13:55 Total Bilirubin 1.40 mg/dL (0.2-1.0) H 06/29/17 13:55 AST 58 Units/L (15-37) H 06/29/17 13:55 ALT 34 Units/L (12-78) 06/29/17 13:55 Alkaline Phosphatase 181 Units/L (46-116) H 06/29/17 13:55 Total Protein 6.4 g/dL (6.4-8.2) 06/29/17 13:55 Albumin 2.3 g/dL (3.4-5.0) L 06/29/17 13:55 Globulin 4.1 g/dL (2.5-4.5) 06/29/17 13:55 Albumin/Globulin Ratio 0.6 Ratio (1.1-2.1) L 06/29/17 13:55 Specimen Type Catherized urine 06/29/17 14:21 Urine Color Yellow (YELLOW) 06/29/17 14:21 Urine Appearance Cloudy (CLEAR) 06/29/17 14:21 Urine pH 5.0 (5.0 - 8.0) 06/29/17 14:21 Ur Specific [place] 1.015 (1.000-1.030) 06/29/17 14:21 Urine Protein 1+ (NEGATIVE) 06/29/17 14:21 Urine Glucose (UA) Negative (NEGATIVE) 06/29/17 14:21 Urine Ketones Negative (NEGATIVE) 06/29/17 14:21 Urine Occult Blood 5+ (NEGATIVE) 06/29/17 14:21 Urine Nitrite Positive (NEGATIVE) 06/29/17 14:21 Urine Bilirubin Negative (NEGATIVE) 06/29/17 14:21 Urine Urobilinogen 2+ (NORMAL) 06/29/17 14:21 Ur Leukocyte Esterase 1+ (NEGATIVE) 06/29/17 14:21 Urine RBC 1 - 3 /HPF (NEGATIVE) 06/29/17 14:21 Urine WBC 2 - 5 /HPF (NEGATIVE) 06/29/17 14:21 Ur Squamous Epith Cells Negative /HPF (NEGATIVE) 06/29/17 14:21 Calcium Oxalate Crystal Few /HPF (NEGATIVE) 06/29/17 14:21 Urine Bacteria 3+ /HPF (NEGATIVE) 06/29/17 14:21 Ur Culture Indicated? Yes/culture set up 06/29/17 14:21 - Diagnosis Discharge Problem: Subdural fluid collection UTI (urinary tract infection) Qualifiers: Urinary tract infection type: acute cystitis Hematuria presence: with hematuria Qualified Code(s): N30.01 - Acute cystitis with hematuria Altered mental status Qualifiers: Altered mental status type: transient alteration of awareness Qualified Code(s) : R40.4 - Transient alteration of awareness - Discharge Plan Condition: Stable - Follow ups/Referrals Follow ups/Referrals: Xander Keller [Primary Care Provider] - 3 days - Instructions
[2017-06-29 14:23] LABS: BASOPHILS % (AUTO) 0.4 % (0.2-1.0); EOSINOPHILS # (AUTO) 0.1 x10^3/uL (0.0-0.2); HEMATOCRIT 34.7 % (42.0-54.0); HEMOGLOBIN 12.2 g/dL (13.5-18.0); LYMPHOCYTES # (AUTO) 0.8 X10^3/uL (1.3-2.9); LYMPHOCYTES % (AUTO) 18.1 % (21.0-51.0); MEAN CORPUSCULAR HEMOGLOBIN 34.7 pg (27.0-34.0); MEAN PLATELET VOLUME 8.1 fL (7.4-11.0); MONOCYTES # (AUTO) 0.4 x10^3/uL (0.3-0.8); MONOCYTES % (AUTO) 9.7 % (0.0-13.0); NEUTROPHILS # (AUTO) 3.1 x10^3/uL (2.2-4.8); NEUTROPHILS % (AUTO) 69.8 % (42.0-75.0); PLATELET COUNT 122 X10^3/uL (150.0-450.0); RED BLOOD COUNT 3.51 X10^6/uL (4.7-6.0); RED CELL DISTRIBUTION WIDTH 16.4 % (11.6-16.5); WHITE BLOOD COUNT 4.5 X10^3/uL (3.6-10.0)
[2017-06-29 14:25] LABS: ALANINE AMINOTRANSFERASE 34 Units/L (12-78); ALBUMIN 2.3 g/dL (3.4-5.0); ALKALINE PHOSPHATASE 181 Units/L (46-116); ASPARTATE AMINO TRANSFERASE 58 Units/L (15-37); BLOOD UREA NITROGEN 29 mg/dL (7-18); CALCIUM 8.3 mg/dL (8.5-10.1); CARBON DIOXIDE 32.1 mmol/L (21-32); CHLORIDE 100 mmol/L (98-107); COR CA(FOR HYPOALB) 9.7 mg/dL (8.5-10.1); COR NA(FOR HYPERGLY) 137 mmol/L (136-145); CREATININE 0.82 mg/dL (0.70-1.30); SODIUM 137 mmol/L (136-145); TOTAL PROTEIN 6.4 g/dL (6.4-8.2); eGFR BLACK RACES > 60 (>60); eGFR NON BLACK RACES > 60 (>60)
[2017-06-29 14:33] LABS: BILIRUBIN,URINE NEGATIVE (NEGATIVE); BLOOD/HEMOGLOBIN,URINE 5+ (NEGATIVE); GLUCOSE, URINE NEGATIVE (NEGATIVE); KETONES,URINE NEGATIVE (NEGATIVE); LEUKOCYTE ESTERASE ,URINE 1+ (NEGATIVE); NITRITES,URINE POSITIVE (NEGATIVE); PROTEIN,URINE 1+ (NEGATIVE); UROBILINOGEN,URINE 2+ (NORMAL)
[2017-06-29 14:47] LABS: APPEARANCE,URINE CLOUDY (CLEAR); COLOR,URINE YELLOW (YELLOW)
[2017-06-29 14:50] LABS: BACTERIA,URINE 3+ /HPF (NEGATIVE); SQUAMOUS EPITHELIAL CELL,UR NEGATIVE /HPF (NEGATIVE)
[2017-06-29 14:51] LABS: CALCIUM OXALATE CRYSTALS,UR FEW /HPF (NEGATIVE)
[2017-06-29] MEDS ORDERED: HumuLIN R SC PRN (15:36)
[2017-06-29] MEDS: NS 1000 ML 1,000 ML IV SCH (16:55)
[2017-06-29] MEDS: LEVAQUIN PREMIX IV 750 MG 750 MG/150 ML BAG IV SCH (17:30)
[2017-06-29] MEDS ORDERED: GLUCOPHAGE ONE (20:54)
[2017-06-29] MEDS ORDERED: TEFLARO 600 MG in NS 50 ML IV + SPIKE MINIBAG* 50 ML IV SCH (21:00)
[2017-06-29] MEDS: GLUCOPHAGE PEG SCH (21:21)
[2017-06-29] MEDS: PROSCAR PEG SCH (21:21)
[2017-06-29] MEDS: TRICOR TAB 145 MG PO SCH (21:21)
[2017-06-29] MEDS: NEURONTIN CAP 100 MG PO SCH (21:21)
[2017-06-29] MEDS: LASIX PEG SCH (21:22)
[2017-06-29] MEDS ORDERED: SOTALOL HCL 80 MG PEG SCH (21:30)
[2017-06-29] MEDS ORDERED: TEFLARO IV SCH (22:00)
[2017-06-29] MEDS ORDERED: NS IV SCH (22:00)
[2017-06-30] MEDS: PRAZOSIN HCL 3 MG PEG SCH ×2 (00:27→21:45)
[2017-06-30] MEDS: NIACIN 500 MG PEG SCH ×2 (00:30→21:45)
[2017-06-30] MEDS: FATTY ACIDS PEG SCH ×3 (00:30→21:45)
[2017-06-30] MEDS: OMEGA PEG SCH ×3 (00:30→21:45)
[2017-06-30] MEDS: FISH OIL PEG SCH ×3 (00:30→21:45)
[2017-06-30] MEDS: [UNRECOGNIZED DRUG - OTHER] PEG SCH ×3 (00:30→21:45)
[2017-06-30] MEDS: PATIENT'S HOME MEDICATION (Amino Acids/Protein Hydrolys [Pro-Stat Awc Liquid Packet] 30 ML PEG SCH ×3 (00:31→21:45)
[2017-06-30] MEDS: NS 1000 ML 1,000 ML IV SCH ×3 (02:40→23:54)
[2017-06-30] MEDS: NEURONTIN CAP 100 MG PO SCH ×3 (05:59→21:45)
[2017-06-30 06:25] LABS: BASOPHILS % (AUTO) 0.3 % (0.2-1.0); EOSINOPHILS # (AUTO) 0.1 x10^3/uL (0.0-0.2); EOSINOPHILS % (AUTO) 1.2 % (0.9-2.9); HEMATOCRIT 32.1 % (42.0-54.0); HEMOGLOBIN 11.3 g/dL (13.5-18.0); LYMPHOCYTES # (AUTO) 1.1 X10^3/uL (1.3-2.9); LYMPHOCYTES % (AUTO) 20.3 % (21.0-51.0); MEAN CORPUSCULAR HEMOGLOBIN 34.6 pg (27.0-34.0); MEAN CORPUSCULAR VOLUME 98.9 fL (80.0-100.0); MEAN PLATELET VOLUME 8.1 fL (7.4-11.0); MONOCYTES # (AUTO) 0.5 x10^3/uL (0.3-0.8); MONOCYTES % (AUTO) 9.2 % (0.0-13.0); NEUTROPHILS # (AUTO) 3.7 x10^3/uL (2.2-4.8); PLATELET COUNT 124 X10^3/uL (150.0-450.0); RED BLOOD COUNT 3.25 X10^6/uL (4.7-6.0); RED CELL DISTRIBUTION WIDTH 16.7 % (11.6-16.5); WHITE BLOOD COUNT 5.4 X10^3/uL (3.6-10.0)
[2017-06-30 06:44] LABS: ALANINE AMINOTRANSFERASE 32 Units/L (12-78); ALBUMIN 2.1 g/dL (3.4-5.0); ALKALINE PHOSPHATASE 145 Units/L (46-116); ASPARTATE AMINO TRANSFERASE 56 Units/L (15-37); BLOOD UREA NITROGEN 26 mg/dL (7-18); CALCIUM 7.9 mg/dL (8.5-10.1); CARBON DIOXIDE 26.6 mmol/L (21-32); CHLORIDE 103 mmol/L (98-107); COR CA(FOR HYPOALB) 9.4 mg/dL (8.5-10.1); CREATININE 0.81 mg/dL (0.70-1.30); SODIUM 138 mmol/L (136-145); eGFR BLACK RACES > 60 (>60); eGFR NON BLACK RACES > 60 (>60)
[2017-06-30] MEDS ORDERED: ZOLOFT PO ONE (09:35)
[2017-06-30] MEDS ORDERED: GLUCOPHAGE ONE ×2 (09:35→20:33)
[2017-06-30] MEDS: GLUCOTROL PEG SCH (09:59)
[2017-06-30] MEDS: LASIX PEG SCH ×2 (09:59→21:45)
[2017-06-30] MEDS: ASPIRIN PEG SCH (09:59)
[2017-06-30] MEDS: GLUCOPHAGE PEG SCH ×2 (09:59→21:45)
[2017-06-30] MEDS: LEVAQUIN PREMIX IV 750 MG 750 MG/150 ML BAG IV SCH (09:59)
[2017-06-30] MEDS: BETAPACE AF PO SCH ×2 (09:59→21:45)
[2017-06-30] MEDS: PLAVIX PEG SCH (09:59)
[2017-06-30] MEDS: PriLOSEC PO SCH (10:00)
[2017-06-30] MEDS: ZOLOFT PO SCH (10:00)
[2017-06-30] MEDS: ZINC SULFATE PEG SCH (10:00)
[2017-06-30] MEDS: TEFLARO 600 MG in D5W 50 ML IV 50 ML IV SCH ×3 (13:19→23:55)
--- NOTE | 2017-06-30 13:32 | DR.H&P ---
H&P - History & Physical for Day of: H&P Date: 06/29/17 - Chief Complaint Chief Complaint: UTI, SWELLING LEFT SIDE OF FACE, CO EAR PAIN - Allergies Allergies/Adverse Reactions: Allergies Allergy/AdvReac Type Severity Reaction Status Date / Time morphine Allergy Verified 05/28/17 13:04 shrimp Allergy Verified 05/28/17 13:04 - History of Present Illness History of Present Illness: 71WM ER ADMISSION AFTER PRESENTING TO ED FOR EVALUATION OF ALTERED MENTAL STATUS, PT HAD UTI, HX OF CVA, HTN, OA TOTAL CARE. RESIDENT OF [place]. PLAN TO ADMIT FOR FURTHER EVALUATION OF AMS, UTI, AND NEW ONSET LEFT FACIAL SWELLING. CONTINUE BLOOD PRESSURE MONITORING, BLOOD SUGAR CONTROL, IV ATBX - Past Medical History Past Medical History: Anxiety, Arthritis, Coronary Artery Disease, CVA, Diabetes , Dyslipidemia, Hypertension, [place] - Past Surgical History Surgical History: CABG/Valve Surgery, Ortho Surgery, Other - Family History Family Medical History: Diabetes Mellitus, Coronary Artery Disease - Social History Does patient currently use any type of tobacco product: No Have you used tobacco products in the last 12 months: No Type of Tobacco Use: None Does any household member use tobacco: No Alcohol Use: None Drug Use: None - Medications Home Medications: Gabapentin [Neurontin Cap 100 mg] 200 mg PO TID 06/29/17 [History Confirmed 08/15] Hydrocodone-Acet 10/325 mg [NORCO 10 MG/325 MG *] 1 tab PEG Q4HR PRN 06/29/17 [ History Confirmed 06/29/17] - Review of Systems Constitutional: Weakness Eyes: No Symptoms Reported ENT: Ear Pain, Other (SWELLING TO LEFT SIDE OF FACE) Respiratory: No Symptoms Reported Cardiovascular: No Symptoms Reported Gastrointestinal: No Symptoms Reported Genitourinary: Incontinence Musculoskeletal: Back Pain, Leg Pain Skin: No Symptoms Reported Neurological: Weakness - Physical Exam Vital Signs: Temperature 98.4 F Pulse Rate [Left Brachial] 82 Pulse Rate 81 Respiratory Rate 18 Blood Pressure [Right Calf] 133/64 Blood Pressure [Left Arm] 94/55 Blood Pressure [Right Arm] 90/53 Blood Pressure 98/52 O2 Sat by Pulse Oximetry 96 Oriented: Person Eyes: Normal Ear: Left Nose: Normal Throat: Normal Respiratory: RLL Diminished, LLL Diminished Cardiovascular: Edema (BILATERAL TRACE EDEMA TO LOWER EXTREMITIES) : Normal Auscultation: Bowel Sounds: Normal Palpation: Normal Tenderness: Normal Skin: Decreased Turgur Musculoskeletal: Back:Lumbar, Motor Deficit Mood Description: Calm Speech Pattern: Delayed - Assessment/Plan (1) Altered mental status Qualifiers: Altered mental status type: transient alteration of awareness Qualified Code(s): R40.4 - Transient alteration of awareness Status: Acute Plan: ADMIT IV ATBX, GENTLY IV HYDRATION, BP MONITORING, RESUME HOME MEDS. PT HAD PEG TUBE, CONTINUE FEEDING REGIMEN, CBC CMP UA UC ON ADMISSION, CHEST XRAY , EKG ON ADMISSION (2) UTI (urinary tract infection) Qualifiers: Urinary tract infection type: acute cystitis Hematuria presence: with hematuria Qualified Code(s): N30.01 - Acute cystitis with hematuria Status: Acute (3) CAD (coronary artery disease) Status: Chronic (4) Congestive heart failure Qualifiers: Congestive heart failure type: unspecified congestive heart failure type Congestive heart failure chronicity: acute Qualified Code(s): I50.9 - Heart failure, unspecified Status: Chronic (5) Diabetes mellitus, type 2 Status: Chronic (6) Essential hypertension, benign Status: Chronic (7) GERD (gastroesophageal reflux disease) Qualifiers: Esophagitis presence: esophagitis presence not specified Qualified Code(s) : K21.9 - Gastro-esophageal reflux disease without esophagitis Status: Chronic (8) Hypertension Status: Chronic
[2017-06-30] MEDS: TRICOR TAB 145 MG PO SCH (21:45)
[2017-06-30] MEDS: NORCO 10/325 TAB PEG PRN (21:45)
[2017-06-30] MEDS: PROSCAR PEG SCH (21:45)
[2017-06-30] MEDS ORDERED: TEFLARO IV ONE (23:43)
[2017-06-30] MEDS ORDERED: D5W 100 ML IV 100 ML IV ONE (23:44)
[2017-07-01] MEDS: PRAZOSIN HCL 3 MG PEG SCH ×2 (04:54→22:56)
[2017-07-01] MEDS: NORCO 10/325 TAB PEG PRN ×2 (05:33→20:32)
[2017-07-01] MEDS: NEURONTIN CAP 100 MG PO SCH ×3 (05:34→22:55)
[2017-07-01 05:39] LABS: BASOPHILS % (AUTO) 0.4 % (0.2-1.0); EOSINOPHILS # (AUTO) 0.1 x10^3/uL (0.0-0.2); EOSINOPHILS % (AUTO) 2.9 % (0.9-2.9); HEMATOCRIT 31.5 % (42.0-54.0); LYMPHOCYTES # (AUTO) 1.2 X10^3/uL (1.3-2.9); LYMPHOCYTES % (AUTO) 24.9 % (21.0-51.0); MEAN CORPUSCULAR HEMOGLOBIN 34.9 pg (27.0-34.0); MEAN CORPUSCULAR HGB CONC 35.1 g/dL (33.0-35.0); MEAN CORPUSCULAR VOLUME 99.6 fL (80.0-100.0); MEAN PLATELET VOLUME 8.1 fL (7.4-11.0); MONOCYTES # (AUTO) 0.4 x10^3/uL (0.3-0.8); MONOCYTES % (AUTO) 8.9 % (0.0-13.0); NEUTROPHILS % (AUTO) 62.9 % (42.0-75.0); PLATELET COUNT 114 X10^3/uL (150.0-450.0); RED BLOOD COUNT 3.16 X10^6/uL (4.7-6.0); RED CELL DISTRIBUTION WIDTH 16.5 % (11.6-16.5); WHITE BLOOD COUNT 4.8 X10^3/uL (3.6-10.0)
[2017-07-01] MEDS: NS 1000 ML 1,000 ML IV SCH ×2 (06:41→19:30)
[2017-07-01 06:45] LABS: ALANINE AMINOTRANSFERASE 35 Units/L (12-78); ALKALINE PHOSPHATASE 141 Units/L (46-116); ASPARTATE AMINO TRANSFERASE 56 Units/L (15-37); BLOOD UREA NITROGEN 27 mg/dL (7-18); CALCIUM 7.9 mg/dL (8.5-10.1); CARBON DIOXIDE 22.9 mmol/L (21-32); CHLORIDE 102 mmol/L (98-107); COR CA(FOR HYPOALB) 9.5 mg/dL (8.5-10.1); CREATININE 0.83 mg/dL (0.70-1.30); SODIUM 136 mmol/L (136-145); TOTAL PROTEIN 5.9 g/dL (6.4-8.2); eGFR BLACK RACES > 60 (>60); eGFR NON BLACK RACES > 60 (>60)
--- NOTE | 2017-07-01 07:31 | US ---
HISTORY: 71-year-old male with left upper jaw and neck swelling and soreness. History diabetes and h ypertension. Prior neck surgery. Study: Limited ultrasound of the soft tissues of the neck. Comparison: None. Technique: Multiple grayscale and color Doppler images in the region of interest over the left neck a nd jaw. Findings: Reactive appearing lymph node measuring 7.3 x 11.2 mm in the region of concern is noted. No fluid col lection or mass. No hyperemia. IMPRESSION: Reactive appearing lymph node in the region of interest with no other acute finding. Reported By:
[2017-07-01] MEDS ORDERED: ZOLOFT PO ONE (09:10)
[2017-07-01] MEDS ORDERED: GLUCOPHAGE ONE ×2 (09:10→20:11)
[2017-07-01] MEDS: ASPIRIN PEG SCH (09:21)
[2017-07-01] MEDS: LASIX PEG SCH ×2 (09:21→20:31)
[2017-07-01] MEDS: PATIENT'S HOME MEDICATION (Amino Acids/Protein Hydrolys [Pro-Stat Awc Liquid Packet] 30 ML PEG SCH ×2 (09:21→20:34)
[2017-07-01] MEDS: BETAPACE AF PO SCH ×2 (09:21→20:53)
[2017-07-01] MEDS: GLUCOPHAGE PEG SCH ×2 (09:21→20:31)
[2017-07-01] MEDS: GLUCOTROL PEG SCH (09:21)
[2017-07-01] MEDS: ZOLOFT PO SCH (09:22)
[2017-07-01] MEDS: OMEGA PEG SCH ×2 (09:22→20:50)
[2017-07-01] MEDS: FATTY ACIDS PEG SCH ×2 (09:22→20:50)
[2017-07-01] MEDS: FISH OIL PEG SCH ×2 (09:22→20:50)
[2017-07-01] MEDS: ZINC SULFATE PEG SCH (09:22)
[2017-07-01] MEDS: LEVAQUIN PREMIX IV 750 MG 750 MG/150 ML BAG IV SCH (09:22)
[2017-07-01] MEDS: PriLOSEC PO SCH (09:22)
[2017-07-01] MEDS: [UNRECOGNIZED DRUG - OTHER] PEG SCH ×2 (09:22→20:50)
[2017-07-01] MEDS: TEFLARO 600 MG in D5W 50 ML IV 50 ML IV SCH ×2 (10:41→20:34)
[2017-07-01] MEDS: PLAVIX PEG SCH (10:41)
[2017-07-01 11:58] LABS: STOOL FOR WBC NEGATIVE (NEGATIVE)
[2017-07-01 11:59] LABS: CRYPTOSPORIDIUM PARVUM ANTIGEN NEGATIVE (NEGATIVE); GIARDIA LAMBLIA ANTIGEN NEGATIVE (NEGATIVE)
[2017-07-01] MEDS ORDERED: BUTT CREAM (COMPOUND) TOP PRN (16:11)
--- NOTE | 2017-07-01 17:14 | RAD ---
Examination: Portable AP chest History: SOB Comparison reference 06/13/2017 Findings: Continued upper normal heart size with very diminished pulmonary volumes. Discoid atelectas is is present at the right base. There is no evidence for pneumonic consolidation or pleural fluid or pneumothorax. Impression: Expiratory portable examination with subsegmental atelectasis right lung base. Reported By:
[2017-07-01] MEDS: TRICOR TAB 145 MG PO SCH (20:32)
[2017-07-01] MEDS: PROSCAR PEG SCH (20:32)
[2017-07-01] MEDS: NIACIN 500 MG PEG SCH (20:51)
[2017-07-02] MEDS: NS 1000 ML 1,000 ML IV SCH ×5 (00:06→21:11)
[2017-07-02 05:00] LABS: BASOPHILS % (AUTO) 0.4 % (0.2-1.0); EOSINOPHILS # (AUTO) 0.2 x10^3/uL (0.0-0.2); EOSINOPHILS % (AUTO) 3.7 % (0.9-2.9); HEMATOCRIT 30.8 % (42.0-54.0); HEMOGLOBIN 10.8 g/dL (13.5-18.0); LYMPHOCYTES # (AUTO) 1.2 X10^3/uL (1.3-2.9); LYMPHOCYTES % (AUTO) 24.9 % (21.0-51.0); MEAN CORPUSCULAR HGB CONC 35.1 g/dL (33.0-35.0); MEAN CORPUSCULAR VOLUME 99.6 fL (80.0-100.0); MEAN PLATELET VOLUME 8.1 fL (7.4-11.0); MONOCYTES # (AUTO) 0.5 x10^3/uL (0.3-0.8); MONOCYTES % (AUTO) 10.2 % (0.0-13.0); NEUTROPHILS % (AUTO) 60.8 % (42.0-75.0); PLATELET COUNT 116 X10^3/uL (150.0-450.0); RED BLOOD COUNT 3.09 X10^6/uL (4.7-6.0); RED CELL DISTRIBUTION WIDTH 16.4 % (11.6-16.5); WHITE BLOOD COUNT 4.9 X10^3/uL (3.6-10.0)
[2017-07-02] MEDS: NEURONTIN CAP 100 MG PO SCH ×3 (05:21→21:13)
[2017-07-02 06:24] LABS: ALANINE AMINOTRANSFERASE 34 Units/L (12-78); ALBUMIN 1.9 g/dL (3.4-5.0); ALKALINE PHOSPHATASE 148 Units/L (46-116); ASPARTATE AMINO TRANSFERASE 65 Units/L (15-37); BLOOD UREA NITROGEN 24 mg/dL (7-18); CALCIUM 7.9 mg/dL (8.5-10.1); CARBON DIOXIDE 25.9 mmol/L (21-32); CHLORIDE 103 mmol/L (98-107); COR CA(FOR HYPOALB) 9.6 mg/dL (8.5-10.1); CREATININE 0.87 mg/dL (0.70-1.30); SODIUM 136 mmol/L (136-145); TOTAL PROTEIN 5.8 g/dL (6.4-8.2); eGFR BLACK RACES > 60 (>60); eGFR NON BLACK RACES > 60 (>60)
[2017-07-02] MEDS ORDERED: GLUCOPHAGE ONE ×2 (08:37→20:27)
[2017-07-02] MEDS ORDERED: ZOLOFT PO ONE (08:37)
[2017-07-02] MEDS: PATIENT'S HOME MEDICATION (Amino Acids/Protein Hydrolys [Pro-Stat Awc Liquid Packet] 30 ML PEG SCH ×2 (09:00→21:24)
[2017-07-02] MEDS: LEVAQUIN PREMIX IV 750 MG 750 MG/150 ML BAG IV SCH (10:07)
[2017-07-02] MEDS: GLUCOPHAGE PEG SCH ×2 (10:08→21:13)
[2017-07-02] MEDS: GLUCOTROL PEG SCH (10:08)
[2017-07-02] MEDS: ASPIRIN PEG SCH (10:08)
[2017-07-02] MEDS: ZOLOFT PO SCH (10:09)
[2017-07-02] MEDS: ZINC SULFATE PEG SCH (10:09)
[2017-07-02] MEDS: PriLOSEC PO SCH (10:09)
[2017-07-02] MEDS: PLAVIX PEG SCH (10:09)
[2017-07-02] MEDS: BETAPACE AF PO SCH ×2 (10:09→21:14)
[2017-07-02] MEDS: LASIX PEG SCH ×2 (10:09→21:13)
[2017-07-02] MEDS: NORCO 10/325 TAB PEG PRN (10:10)
--- NOTE | 2017-07-02 11:25 | PCM.PROG ---
Progress Note - Progress Note for Day of Date: 07/02/17 - Subjective Subjective: WAS ADMITTED FOR DEHYDRATION, ALTERED MENTAL STATUS, AND UTI. TODAY, HE IS LYING IN BED WITH EYES CLOSED ON MORNING ROUNDS. HE AWAKENS AND RESPONDS TO VERBAL STIMULI. HE DENIES PAIN OF ANY KIND THIS MORNING. PATIENT S DAUGHTER IS AT BEDSIDE. SHE REPORTS THAT HE CONTINUED WITH CONFUSTION LAST NIGHT AND SOME THIS MORNING. ON EXAMINATION, LUNG SOUNDS ARE DIMINISHED. PREVIOUSLY DOCUMENTED SWELLING TO LEFT SIDE FACE APPEARS TO HAVE RESOLVED. ABDOMEN IS ROUND, SOFT, AND NON-TENDER WITH NORMAL BOWEL SOUNDS NOTED IN ALL QUADRANTS. A PEG TUBE IS NOTED TO ABD. NO SIGNS/SX INFECTION NOTED TO SITE OF PEG TUBE. A POPE CATHETER IS NOTED TO BEDSIDE DRAINAGE WITH CONCENTRATED URINE IN BAG. LOWER EXTREMITIES ARE NOTED WITH NON-PITTING EDEMA. HIS VITAL SIGNS THIS MORNING ARE 98.6-79-14-98%-99/50. ABNORMAL LAB VALUES INCLUDE THE FOLLOWING : RBC 3.09, HGB 10.8, HCT 30.8, BUN 24, CALCIUM 7.9, AST 65, ALK PHOS 148, TOTAL PROTEIN 5.8, ALBUMIN 1.9. URINE CULTURE REPORTS GROWTH OF E.COLI FOR WHICH HE IS CURRENTLY RECEIVING LEVAQUIN 750MG IV DAILY AND TEFLARO 600MG IV Q12H. PATIENT IS SCHEDULED FOR A BRAIN CT AND MRI THIS MORNING DUE TO COMPLAINTS OF CONFUSION. HE IS ALSO SCHEDULED FOR A FACIAL CT. WE WILL START ALBUMIN 25% IV DAILY TODAY. OTHERWISE, WE WILL AWAIT RESULTS OF SCANS. WE PLAN TO FOLLOW UP WITH AM LABS AND CONTINUE TO MONITOR PATIENT. - Past Medical Family Social History Past Med/Fam/Surg Hx: No changes since H&P Allergies: Allergies morphine Allergy (Verified 05/28/17 13:04) shrimp Allergy (Verified 05/28/17 13:04) - Review of Systems ROS: No change since H&P - Vital Signs and I&O's Vital Signs: Temperature 98.2 F Pulse Rate [Right Brachial] 78 Pulse Rate [Left Brachial] 79 Pulse Rate 81 Respiratory Rate 20 Blood Pressure [Right Calf] 133/64 Blood Pressure [Left Arm] 94/55 Blood Pressure [Right Arm] 123/61 Blood Pressure 98/52 O2 Sat by Pulse Oximetry 96 Intake and Output: Intake & Output 06/29/17 06/30/17 07/01/17 07/02/17 11:59 11:59 11:59 11:59 Intake Total 120 0 0 Output Total 1050 1400 2100 Balance -930 1400 2100 - Physical Exam Oriented: Person Eyes: Normal Ear: Left Nose: Normal Throat: Normal Respiratory: Generalized, Diminished Cardiovascular: Edema (BILATERAL TRACE EDEMA TO LOWER EXTREMITIES) : Normal Auscultation: Bowel Sounds: Normal Palpation: Normal Tenderness: Normal Skin: Decreased Turgur Musculoskeletal: Normal Psychiatric: Normal Mood Description: Calm Affect: Normal Speech Pattern: Delayed, Slurred - Laboratory and Diagnostics Result Diagrams: 07/02/17 03:44 07/02/17 03:44 Labs: 07/01/17 10:22 Stool Stool Culture - Preliminary 07/01/17 10:22 Stool - Final 06/29/17 14:21 Urine,Catheterized Urine Culture - Final Escherichia Coli Laboratory WBC 4.9 X10^3/uL (3.6-10.0) 07/02/17 03:44 RBC 3.09 X10^6/uL (4.7-6.0) L 07/02/17 03:44 Hgb 10.8 g/dL (13.5-18.0) L 07/02/17 03:44 Hct 30.8 % (42.0-54.0) L 07/02/17 03:44 MCV 99.6 fL (80.0-100.0) 07/02/17 03:44 MCH 35.0 pg (27.0-34.0) H 07/02/17 03:44 MCHC 35.1 g/dL (33.0-35.0) H 07/02/17 03:44 RDW 16.4 % (11.6-16.5) 07/02/17 03:44 Plt Count 116 X10^3/uL (150.0-450.0) L 07/02/17 03:44 MPV 8.1 fL (7.4-11.0) 07/02/17 03:44 Neut % 60.8 % (42.0-75.0) 07/02/17 03:44 Lymph % 24.9 % (21.0-51.0) 07/02/17 03:44 [place] % 10.2 % (0.0-13.0) 07/02/17 03:44 Eos % 3.7 % (0.9-2.9) H 07/02/17 03:44 Baso % 0.4 % (0.2-1.0) 07/02/17 03:44 Neut # 3.0 x10^3/uL (2.2-4.8) 07/02/17 03:44 Lymph # 1.2 X10^3/uL (1.3-2.9) L 07/02/17 03:44 [place] # 0.5 x10^3/uL (0.3-0.8) 07/02/17 03:44 Eos # 0.2 x10^3/uL (0.0-0.2) 07/02/17 03:44 Baso # 0.0 X10^3/uL (0.0-0.1) 07/02/17 03:44 Absolute Nucleated RBC 0.1 /100WBC 07/02/17 03:44 ESR 48 MM/HOUR (0-15) H 07/01/17 17:20 Sodium 136 mmol/L (136-145) 07/02/17 03:44 Corrected Sodium TNP 07/02/17 03:44 Potassium 4.0 mmol/L (3.5-5.1) 07/02/17 03:44 Chloride 103 mmol/L (98-107) 07/02/17 03:44 Carbon Dioxide 25.9 mmol/L (21-32) 07/02/17 03:44 BUN 24 mg/dL (7-18) H 07/02/17 03:44 Creatinine 0.87 mg/dL (0.70-1.30) 07/02/17 03:44 Est GFR (MDRD) Af Amer > 60 (>60) 07/02/17 03:44 Est GFR (MDRD) Non-Af > 60 (>60) 07/02/17 03:44 Glucose 92 mg/dL (65-99) 07/02/17 03:44 POC Glucose (mg/dL) 94 mg/dL (65-99) 07/02/17 05:26 Calcium 7.9 mg/dL (8.5-10.1) L 07/02/17 03:44 Corrected Calcium 9.6 mg/dL (8.5-10.1) 07/02/17 03:44 Total Bilirubin 1.00 mg/dL (0.2-1.0) 07/02/17 03:44 AST 65 Units/L (15-37) H 07/02/17 03:44 ALT 34 Units/L (12-78) 07/02/17 03:44 Alkaline Phosphatase 148 Units/L (46-116) H 07/02/17 03:44 C-Reactive Protein 62.80 mg/L (0-3.0) H 07/01/17 17:20 Total Protein 5.8 g/dL (6.4-8.2) L 07/02/17 03:44 Albumin 1.9 g/dL (3.4-5.0) L 07/02/17 03:44 Globulin 3.9 g/dL (2.5-4.5) 07/02/17 03:44 Albumin/Globulin Ratio 0.5 Ratio (1.1-2.1) L 07/02/17 03:44 Specimen Type Catherized urine 06/29/17 14:21 Urine Color Yellow (YELLOW) 06/29/17 14:21 Urine Appearance Cloudy (CLEAR) 06/29/17 14:21 Urine pH 5.0 (5.0 - 8.0) 06/29/17 14:21 Ur Specific [place] 1.015 (1.000-1.030) 06/29/17 14:21 Urine Protein 1+ (NEGATIVE) 06/29/17 14:21 Urine Glucose (UA) Negative (NEGATIVE) 06/29/17 14:21 Urine Ketones Negative (NEGATIVE) 06/29/17 14:21 Urine Occult Blood 5+ (NEGATIVE) 06/29/17 14:21 Urine Nitrite Positive (NEGATIVE) 06/29/17 14:21 Urine Bilirubin Negative (NEGATIVE) 06/29/17 14:21 Urine Urobilinogen 2+ (NORMAL) 06/29/17 14:21 Ur Leukocyte Esterase 1+ (NEGATIVE) 06/29/17 14:21 Urine RBC 1 - 3 /HPF (NEGATIVE) 06/29/17 14:21 Urine WBC 2 - 5 /HPF (NEGATIVE) 06/29/17 14:21 Ur Squamous Epith Cells Negative /HPF (NEGATIVE) 06/29/17 14:21 Calcium Oxalate Crystal Few /HPF (NEGATIVE) 06/29/17 14:21 Urine Bacteria 3+ /HPF (NEGATIVE) 06/29/17 14:21 Ur Culture Indicated? Yes/culture set up 06/29/17 14:21 Stool Description 1g,loose,brown 07/01/17 10:22 Stl Occult Blood (IFOB) Negative (NEGATIVE) 07/01/17 10:22 Stool for White Cells Negative (NEGATIVE) 07/01/17 10:22 Stl C. diff Tox B Gene Negative (NEGATIVE) 07/01/17 10:22 Stl C. diff 027-NAP1-BI Negative (NEGATIVE) 07/01/17 10:22 Cryptosporid parvum Ag Negative (NEGATIVE) 07/01/17 10:22 E. histolytica Antigen Negative (NEGATIVE) 07/01/17 10:22 Giardia lamblia Ag Negative (NEGATIVE) 07/01/17 10:22 - Plan (1) Altered mental status Status: Acute Qualifiers: Altered mental status type: transient alteration of awareness Qualified Code(s): R40.4 - Transient alteration of awareness Plan: OBTAIN BRAIN MRI/CT, CONTINUE IV ATBX FOR UTI, CONTINUE IV HYDRATION, BP MONITORING, RESUME CONTINUE FEEDING REGIMEN, CONTINUE TO MONITOR (2) UTI (urinary tract infection) Status: Acute Qualifiers: Urinary tract infection type: acute cystitis Hematuria presence: with hematuria Qualified Code(s): N30.01 - Acute cystitis with hematuria Plan: CONTINUE IV ABX, CONTINUE TO MONITOR
[2017-07-02] MEDS: TEFLARO 600 MG in D5W 50 ML IV 50 ML IV SCH ×2 (11:54→21:16)
[2017-07-02 14:29] LABS: COLOR,URINE AMBER (YELLOW)
[2017-07-02 14:30] LABS: APPEARANCE,URINE SLIGHTLY HAZY (CLEAR); BLOOD/HEMOGLOBIN,URINE 5+ (NEGATIVE); GLUCOSE, URINE NEGATIVE (NEGATIVE); KETONES,URINE NEGATIVE (NEGATIVE); PROTEIN,URINE TRACE (NEGATIVE)
[2017-07-02 14:31] LABS: BACTERIA,URINE 2+ /HPF (NEGATIVE); BILIRUBIN,URINE NEGATIVE (NEGATIVE); LEUKOCYTE ESTERASE ,URINE TRACE (NEGATIVE); NITRITES,URINE NEGATIVE (NEGATIVE); RBC,URINE TNTC /HPF (NEGATIVE); SQUAMOUS EPITHELIAL CELL,UR RARE /HPF (NEGATIVE); UROBILINOGEN,URINE NORMAL (NORMAL)
[2017-07-02] MEDS: FATTY ACIDS PEG SCH ×2 (14:57→21:15)
[2017-07-02] MEDS: FISH OIL PEG SCH ×2 (14:57→21:15)
[2017-07-02] MEDS: [UNRECOGNIZED DRUG - OTHER] PEG SCH ×2 (14:57→21:15)
[2017-07-02] MEDS: OMEGA PEG SCH ×2 (14:57→21:15)
[2017-07-02] MEDS: TRICOR TAB 145 MG PO SCH (21:14)
[2017-07-02] MEDS: PROSCAR PEG SCH (21:14)
[2017-07-02] MEDS: PRAZOSIN HCL 3 MG PEG SCH (21:16)
[2017-07-02] MEDS: ALBUMIN HUMAN 25%- 100ML 100 ML IV SCH (21:24)
[2017-07-02] MEDS: NIACIN 500 MG PEG SCH (21:26)
[2017-07-03] MEDS: NS 1000 ML 1,000 ML IV SCH ×2 (00:16→21:23)
[2017-07-03] MEDS: NEURONTIN CAP 100 MG PO SCH ×3 (06:10→21:44)
[2017-07-03 06:15] LABS: BASOPHILS % (AUTO) 0.5 % (0.2-1.0); EOSINOPHILS # (AUTO) 0.1 x10^3/uL (0.0-0.2); EOSINOPHILS % (AUTO) 3.2 % (0.9-2.9); HEMATOCRIT 30.8 % (42.0-54.0); HEMOGLOBIN 10.9 g/dL (13.5-18.0); LYMPHOCYTES % (AUTO) 22.9 % (21.0-51.0); MEAN CORPUSCULAR HGB CONC 35.5 g/dL (33.0-35.0); MEAN CORPUSCULAR VOLUME 98.6 fL (80.0-100.0); MEAN PLATELET VOLUME 7.8 fL (7.4-11.0); MONOCYTES # (AUTO) 0.5 x10^3/uL (0.3-0.8); MONOCYTES % (AUTO) 10.8 % (0.0-13.0); NEUTROPHILS # (AUTO) 2.8 x10^3/uL (2.2-4.8); NEUTROPHILS % (AUTO) 62.6 % (42.0-75.0); PLATELET COUNT 116 X10^3/uL (150.0-450.0); RED BLOOD COUNT 3.13 X10^6/uL (4.7-6.0); RED CELL DISTRIBUTION WIDTH 16.2 % (11.6-16.5); WHITE BLOOD COUNT 4.5 X10^3/uL (3.6-10.0)
[2017-07-03 06:44] LABS: ALANINE AMINOTRANSFERASE 43 Units/L (12-78); ALBUMIN 2.1 g/dL (3.4-5.0); ALKALINE PHOSPHATASE 169 Units/L (46-116); ASPARTATE AMINO TRANSFERASE 71 Units/L (15-37); BLOOD UREA NITROGEN 25 mg/dL (7-18); CALCIUM 7.9 mg/dL (8.5-10.1); CARBON DIOXIDE 24.3 mmol/L (21-32); CHLORIDE 104 mmol/L (98-107); COR CA(FOR HYPOALB) 9.4 mg/dL (8.5-10.1); CREATININE 0.92 mg/dL (0.70-1.30); SODIUM 137 mmol/L (136-145); eGFR BLACK RACES > 60 (>60); eGFR NON BLACK RACES > 60 (>60)
[2017-07-03] MEDS ORDERED: ZOLOFT PO ONE (08:18)
[2017-07-03] MEDS ORDERED: GLUCOPHAGE ONE ×2 (08:18→20:02)
[2017-07-03] MEDS: ALBUMIN HUMAN 25%- 100ML 100 ML IV SCH (09:55)
[2017-07-03] MEDS: LEVAQUIN PREMIX IV 750 MG 750 MG/150 ML BAG IV SCH (09:56)
[2017-07-03] MEDS: ASPIRIN PEG SCH (09:56)
[2017-07-03] MEDS: ZINC SULFATE PEG SCH (09:56)
[2017-07-03] MEDS: GLUCOPHAGE PEG SCH ×2 (09:56→21:45)
[2017-07-03] MEDS: TEFLARO 600 MG in D5W 50 ML IV 50 ML IV SCH ×2 (09:56→21:46)
[2017-07-03] MEDS: LASIX PEG SCH ×2 (09:57→21:45)
[2017-07-03] MEDS: ZOLOFT PO SCH (09:57)
[2017-07-03] MEDS: PriLOSEC PO SCH (09:57)
[2017-07-03] MEDS: GLUCOTROL PEG SCH (09:57)
[2017-07-03] MEDS: BETAPACE AF PO SCH ×2 (09:57→21:45)
[2017-07-03] MEDS: PLAVIX PEG SCH (09:57)
[2017-07-03] MEDS: PATIENT'S HOME MEDICATION (Amino Acids/Protein Hydrolys [Pro-Stat Awc Liquid Packet] 30 ML PEG SCH ×2 (09:58→21:46)
[2017-07-03] MEDS: NORCO 10/325 TAB PEG PRN (11:07)
--- NOTE | 2017-07-03 12:48 | PCM.PROG ---
Progress Note - Progress Note for Day of Date: 07/03/17 - Subjective Subjective: WAS ADMITTED FOR DEHYDRATION, ALTERED MENTAL STATUS, AND UTI. TODAY, HE IS ALERT AND ORIENTED, LYING IN BED ON MORNING ROUNDS. MORNING. PATIENTS DAUGHTER IS AT BEDSIDE. PATIENT REPORTS FEELINGS OF GENERALIZED WEAKNESS THIS MORNING. PATIENTS DAUGHTER REPORTS THAT HE CONTINUES WITH INTERMITTENT CONFUSION. ON EXAMINATION, LUNG SOUNDS ARE DIMINISHED. ABDOMEN IS DISTENDED AND NOTED WITH DIFFUSE TENDERNESS ON PALPATION. A PEG TUBE IS NOTED TO ABD. NO SIGNS/SX INFECTION NOTED TO SITE OF PEG TUBE. A POPE CATHETER IS NOTED TO BEDSIDE DRAINAGE WITH CONCENTRATED URINE IN BAG. LOWER EXTREMITIES CONTINUE WITH NON-PITTING EDEMA. HIS VITAL SIGNS THIS MORNING ARE 98.2-88-20-94% -101/51. ABNORMAL LAB VALUES INCLUDE THE FOLLOWING: RBC 3.13, HGB 10.9, HCT 30.8 , BUN 25, CALCIUM 7.9, AST 71, ALK PHOS 169, TOTAL PROTEIN 6.0, ALBUMIN 2.1. WE DECIDED TO HOLD OFF ON BRAIN MRI AND FACIAL CT YESTERDAY DUE TO HIS CONFUSION BEING BASELINE FOR HIM AND DECREASE IN FACIAL SWELLING. WE RECULTURED URINE. RESULTS ARE PENDING. WE PLAN TO CHECK AN AMMONIA LEVEL TODAY DUE TO RECORDS OF CIRROSIS WITH ASCITES FROM WHEN PATIENT WAS HOSPITALIZED IN [place]. CASE MANAG[facility] ARR[facility]ING [facility]. OTHERWISE, WE WILL CONTINUE WITH CURRENT PLAN OF CARE TODAY. WE PLAN TO FOLLOW UP WITH AM LABS AND CONTINUE TO MONITOR PATIENT. - Past Medical Family Social History Past Med/Fam/Surg Hx: No changes since H&P Allergies: Allergies morphine Allergy (Verified 05/28/17 13:04) shrimp Allergy (Verified 05/28/17 13:04) - Review of Systems ROS: No change since H&P - Vital Signs and I&O's Vital Signs: Temperature 98.2 F Pulse Rate [Right Brachial] 82 Pulse Rate [Left Brachial] 88 Pulse Rate 81 Respiratory Rate 20 Blood Pressure [Right Calf] 112/54 Blood Pressure [Left Arm] 101/51 Blood Pressure [Right Arm] 93/43 Blood Pressure 98/52 O2 Sat by Pulse Oximetry 94 Intake and Output: Intake & Output 07/01/17 07/02/17 07/03/17 07/04/17 11:59 11:59 11:59 11:59 Intake Total 0 0 2500 Output Total 1400 2100 1320 Balance -1400 -2100 1180 - Physical Exam Oriented: Person Eyes: Normal Ear: Left Nose: Normal Throat: Normal Respiratory: Generalized, Diminished Cardiovascular: Edema (BILATERAL TRACE EDEMA TO LOWER EXTREMITIES) : Normal Auscultation: Bowel Sounds: Normal Palpation: Normal Tenderness: Diffuse, Mild Skin: Decreased Turgur Musculoskeletal: Normal Psychiatric: Normal Mood Description: Calm Affect: Normal Speech Pattern: Clear - Laboratory and Diagnostics Result Diagrams: 07/03/17 05:38 07/03/17 05:38 Labs: 07/02/17 14:07 Urine,Catheterized Urine Culture - Preliminary 07/01/17 10:22 Stool Stool Culture - Final 07/01/17 10:22 Stool - Final 06/29/17 14:21 Urine,Catheterized Urine Culture - Final Escherichia Coli Laboratory WBC 4.5 X10^3/uL (3.6-10.0) 07/03/17 05:38 RBC 3.13 X10^6/uL (4.7-6.0) L 07/03/17 05:38 Hgb 10.9 g/dL (13.5-18.0) L 07/03/17 05:38 Hct 30.8 % (42.0-54.0) L 07/03/17 05:38 MCV 98.6 fL (80.0-100.0) 07/03/17 05:38 MCH 35.0 pg (27.0-34.0) H 07/03/17 05:38 MCHC 35.5 g/dL (33.0-35.0) H 07/03/17 05:38 RDW 16.2 % (11.6-16.5) 07/03/17 05:38 Plt Count 116 X10^3/uL (150.0-450.0) L 07/03/17 05:38 MPV 7.8 fL (7.4-11.0) 07/03/17 05:38 Neut % 62.6 % (42.0-75.0) 07/03/17 05:38 Lymph % 22.9 % (21.0-51.0) 07/03/17 05:38 [place] % 10.8 % (0.0-13.0) 07/03/17 05:38 Eos % 3.2 % (0.9-2.9) H 07/03/17 05:38 Baso % 0.5 % (0.2-1.0) 07/03/17 05:38 Neut # 2.8 x10^3/uL (2.2-4.8) 07/03/17 05:38 Lymph # 1.0 X10^3/uL (1.3-2.9) L 07/03/17 05:38 [place] # 0.5 x10^3/uL (0.3-0.8) 07/03/17 05:38 Eos # 0.1 x10^3/uL (0.0-0.2) 07/03/17 05:38 Baso # 0.0 X10^3/uL (0.0-0.1) 07/03/17 05:38 Absolute Nucleated RBC 0.1 /100WBC 07/03/17 05:38 ESR 48 MM/HOUR (0-15) H 07/01/17 17:20 Sodium 137 mmol/L (136-145) 07/03/17 05:38 Corrected Sodium TNP 07/03/17 05:38 Potassium 4.1 mmol/L (3.5-5.1) 07/03/17 05:38 Chloride 104 mmol/L (98-107) 07/03/17 05:38 Carbon Dioxide 24.3 mmol/L (21-32) 07/03/17 05:38 BUN 25 mg/dL (7-18) H 07/03/17 05:38 Creatinine 0.92 mg/dL (0.70-1.30) 07/03/17 05:38 Est GFR (MDRD) Af Amer > 60 (>60) 07/03/17 05:38 Est GFR (MDRD) Non-Af > 60 (>60) 07/03/17 05:38 Glucose 99 mg/dL (65-99) 07/03/17 05:38 POC Glucose (mg/dL) 109 mg/dL (65-99) H 07/03/17 11:32 Calcium 7.9 mg/dL (8.5-10.1) L 07/03/17 05:38 Corrected Calcium 9.4 mg/dL (8.5-10.1) 07/03/17 05:38 Total Bilirubin 1.00 mg/dL (0.2-1.0) 07/03/17 05:38 AST 71 Units/L (15-37) H 07/03/17 05:38 ALT 43 Units/L (12-78) 07/03/17 05:38 Alkaline Phosphatase 169 Units/L (46-116) H 07/03/17 05:38 Ammonia 62 umol/L (11-32) H 07/03/17 10:04 C-Reactive Protein 62.80 mg/L (0-3.0) H 07/01/17 17:20 Total Protein 6.0 g/dL (6.4-8.2) L 07/03/17 05:38 Albumin 2.1 g/dL (3.4-5.0) L 07/03/17 05:38 Globulin 3.9 g/dL (2.5-4.5) 07/03/17 05:38 Albumin/Globulin Ratio 0.5 Ratio (1.1-2.1) L 07/03/17 05:38 Specimen Type Catherized urine 07/02/17 14:07 Urine Color [place] (YELLOW) 07/02/17 14:07 Urine Appearance Slightly hazy (CLEAR) 07/02/17 14:07 Urine pH 5.0 (5.0 - 8.0) 07/02/17 14:07 Ur Specific [place] 1.010 (1.000-1.030) 07/02/17 14:07 Urine Protein Trace (NEGATIVE) 07/02/17 14:07 Urine Glucose (UA) Negative (NEGATIVE) 07/02/17 14:07 Urine Ketones Negative (NEGATIVE) 07/02/17 14:07 Urine Occult Blood 5+ (NEGATIVE) 07/02/17 14:07 Urine Nitrite Negative (NEGATIVE) 07/02/17 14:07 Urine Bilirubin Negative (NEGATIVE) 07/02/17 14:07 Urine Urobilinogen Normal (NORMAL) 07/02/17 14:07 Ur Leukocyte Esterase Trace (NEGATIVE) 07/02/17 14:07 Urine RBC Tntc /HPF (NEGATIVE) 07/02/17 14:07 Urine WBC 1-2 /HPF (NEGATIVE) 07/02/17 14:07 Ur Squamous Epith Cells Rare /HPF (NEGATIVE) 07/02/17 14:07 Calcium Oxalate Crystal Few /HPF (NEGATIVE) 06/29/17 14:21 Urine Bacteria 2+ /HPF (NEGATIVE) 07/02/17 14:07 Ur Culture Indicated? Yes/culture set up 07/02/17 14:07 Stool Description 1g,loose,brown 07/01/17 10:22 Stl Occult Blood (IFOB) Negative (NEGATIVE) 07/01/17 10:22 Stool for White Cells Negative (NEGATIVE) 07/01/17 10:22 Stl C. diff Tox B Gene Negative (NEGATIVE) 07/01/17 10:22 Stl C. diff 027-NAP1-BI Negative (NEGATIVE) 07/01/17 10:22 Cryptosporid parvum Ag Negative (NEGATIVE) 07/01/17 10:22 E. histolytica Antigen Negative (NEGATIVE) 07/01/17 10:22 Giardia lamblia Ag Negative (NEGATIVE) 07/01/17 10:22 - Plan (1) Altered mental status Status: Acute Qualifiers: Altered mental status type: transient alteration of awareness Qualified Code(s): R40.4 - Transient alteration of awareness Plan: CONTINUE IV ATBX FOR UTI, CONTINUE IV HYDRATION, BP MONITORING, RESUME CONTINUE FEEDING REGIMEN, CONTINUE TO MONITOR (2) UTI (urinary tract infection) Status: Acute Qualifiers: Urinary tract infection type: acute cystitis Hematuria presence: with hematuria Qualified Code(s): N30.01 - Acute cystitis with hematuria Plan: CONTINUE IV ABX, CONTINUE TO MONITOR (3) Cirrhosis of liver Status: Acute Qualifiers: Hepatic cirrhosis type: unspecified hepatic cirrhosis Ascites presence: with ascites Qualified Code(s): K74.60 - Unspecified cirrhosis of liver Plan: CHECK AMMONIA LEVEL, CONTINUE ALDACTONE, CONTINUE TO MONITOR
[2017-07-03] MEDS: ALDACTONE TAB 25 MG PO SCH (14:34)
[2017-07-03 15:01] VITALS: BMI 33.6
[2017-07-03] MEDS: NYSTATIN POWDER TOP SCH ×2 (17:38→22:22)
[2017-07-03] MEDS: TRICOR TAB 145 MG PO SCH (21:45)
[2017-07-03] MEDS: PROSCAR PEG SCH (21:46)
[2017-07-03] MEDS: NIACIN 500 MG PEG SCH (21:50)
[2017-07-03] MEDS: PRAZOSIN HCL 3 MG PEG SCH (21:56)
[2017-07-03] MEDS: SNACK - Diabetic Appropriate PO SCH (21:57)
[2017-07-04] MEDS: NS 1000 ML 1,000 ML IV SCH ×4 (01:44→16:27)
[2017-07-04] MEDS: NEURONTIN CAP 100 MG PO SCH ×3 (05:22→21:29)
[2017-07-04 05:57] LABS: AMMONIA 85 umol/L (11-32)
[2017-07-04 06:25] LABS: BASOPHILS % (AUTO) 0.6 % (0.2-1.0); EOSINOPHILS # (AUTO) 0.1 x10^3/uL (0.0-0.2); HEMATOCRIT 28.9 % (42.0-54.0); HEMOGLOBIN 10.3 g/dL (13.5-18.0); LYMPHOCYTES # (AUTO) 0.9 X10^3/uL (1.3-2.9); LYMPHOCYTES % (AUTO) 22.6 % (21.0-51.0); MEAN CORPUSCULAR HEMOGLOBIN 35.4 pg (27.0-34.0); MEAN CORPUSCULAR HGB CONC 35.5 g/dL (33.0-35.0); MEAN CORPUSCULAR VOLUME 99.7 fL (80.0-100.0); MEAN PLATELET VOLUME 8.2 fL (7.4-11.0); MONOCYTES # (AUTO) 0.4 x10^3/uL (0.3-0.8); MONOCYTES % (AUTO) 10.5 % (0.0-13.0); NEUTROPHILS # (AUTO) 2.7 x10^3/uL (2.2-4.8); NEUTROPHILS % (AUTO) 64.3 % (42.0-75.0); PLATELET COUNT 104 X10^3/uL (150.0-450.0); RED BLOOD COUNT 2.89 X10^6/uL (4.7-6.0); RED CELL DISTRIBUTION WIDTH 16.2 % (11.6-16.5); WHITE BLOOD COUNT 4.2 X10^3/uL (3.6-10.0)
[2017-07-04 06:40] LABS: ALANINE AMINOTRANSFERASE 36 Units/L (12-78); ALBUMIN 2.3 g/dL (3.4-5.0); ALKALINE PHOSPHATASE 166 Units/L (46-116); ASPARTATE AMINO TRANSFERASE 58 Units/L (15-37); BLOOD UREA NITROGEN 29 mg/dL (7-18); CALCIUM 8.2 mg/dL (8.5-10.1); CARBON DIOXIDE 21.3 mmol/L (21-32); CHLORIDE 105 mmol/L (98-107); COR CA(FOR HYPOALB) 9.6 mg/dL (8.5-10.1); CREATININE 0.89 mg/dL (0.70-1.30); SODIUM 138 mmol/L (136-145); TOTAL PROTEIN 5.9 g/dL (6.4-8.2); eGFR BLACK RACES > 60 (>60); eGFR NON BLACK RACES > 60 (>60)
[2017-07-04] MEDS ORDERED: ZOLOFT PO ONE (08:25)
[2017-07-04] MEDS ORDERED: GLUCOPHAGE ONE ×2 (08:25→22:34)
[2017-07-04] MEDS: TEFLARO 600 MG in D5W 50 ML IV 50 ML IV SCH ×2 (09:35→21:31)
[2017-07-04] MEDS: ALBUMIN HUMAN 25%- 100ML 100 ML IV SCH (09:37)
[2017-07-04] MEDS: ASPIRIN PEG SCH (09:40)
[2017-07-04] MEDS: GLUCOPHAGE PEG SCH ×2 (09:40→22:35)
[2017-07-04] MEDS: PriLOSEC PO SCH (09:40)
[2017-07-04] MEDS: GLUCOTROL PEG SCH (09:41)
[2017-07-04] MEDS: ZINC SULFATE PEG SCH (09:41)
[2017-07-04] MEDS: BETAPACE AF PO SCH ×2 (09:41→21:29)
[2017-07-04] MEDS: LASIX PEG SCH ×2 (09:41→21:29)
[2017-07-04] MEDS: ZOLOFT PO SCH (09:41)
[2017-07-04] MEDS: VISTARIL PO PRN ×2 (09:41→23:22)
[2017-07-04] MEDS: PLAVIX PEG SCH (09:42)
[2017-07-04] MEDS: ALDACTONE TAB 25 MG PO SCH (09:42)
[2017-07-04] MEDS: PATIENT'S HOME MEDICATION (Amino Acids/Protein Hydrolys [Pro-Stat Awc Liquid Packet] 30 ML PEG SCH ×2 (09:42→21:30)
[2017-07-04] MEDS: NYSTATIN POWDER TOP SCH ×2 (09:42→21:33)
[2017-07-04] MEDS: LEVAQUIN PREMIX IV 750 MG 750 MG/150 ML BAG IV SCH (10:07)
[2017-07-04] MEDS: CHRONULAC PO SCH ×2 (13:04→21:26)
[2017-07-04 18:46] LABS: IRON 65 ug/dL (50-175); TRANSFERRIN 159 mg/dL (202-364)
[2017-07-04] MEDS: PROSCAR PEG SCH (21:29)
[2017-07-04] MEDS: TRICOR TAB 145 MG PO SCH (21:29)
[2017-07-04] MEDS: SNACK - Diabetic Appropriate PO SCH (21:30)
[2017-07-04] MEDS: NIACIN 500 MG PEG SCH (21:32)
[2017-07-04] MEDS: PRAZOSIN HCL 3 MG PEG SCH (21:32)
--- NOTE | 2017-07-04 22:07 | US ---
Limited abdominal ultrasound Indication: Abdominal distention, ascites, cirrhosis. Evaluate ascites. Comparison: 06/13/2017 Technique: Sonographic images of the abdomen were obtained per protocol. Findings: Cirrhotic liver is noted. There is moderate amount of upper abdominal ascites. Impression: Moderate volume ascites. Reported By:
[2017-07-05] MEDS: NS 1000 ML 1,000 ML IV SCH ×2 (01:00→21:13)
[2017-07-05 04:25] LABS: AMMONIA 62 umol/L (11-32)
[2017-07-05 04:43] LABS: BASOPHILS % (AUTO) 0.5 % (0.2-1.0); EOSINOPHILS % (AUTO) 0.7 % (0.9-2.9); HEMATOCRIT 27.8 % (42.0-54.0); HEMOGLOBIN 9.8 g/dL (13.5-18.0); LYMPHOCYTES # (AUTO) 0.7 X10^3/uL (1.3-2.9); LYMPHOCYTES % (AUTO) 15.8 % (21.0-51.0); MEAN CORPUSCULAR HEMOGLOBIN 35.2 pg (27.0-34.0); MEAN CORPUSCULAR HGB CONC 35.1 g/dL (33.0-35.0); MEAN CORPUSCULAR VOLUME 100.3 fL (80.0-100.0); MONOCYTES # (AUTO) 0.4 x10^3/uL (0.3-0.8); MONOCYTES % (AUTO) 8.5 % (0.0-13.0); NEUTROPHILS # (AUTO) 3.5 x10^3/uL (2.2-4.8); NEUTROPHILS % (AUTO) 74.5 % (42.0-75.0); PLATELET COUNT 88 X10^3/uL (150.0-450.0); RED BLOOD COUNT 2.77 X10^6/uL (4.7-6.0); RED CELL DISTRIBUTION WIDTH 16.1 % (11.6-16.5); WHITE BLOOD COUNT 4.7 X10^3/uL (3.6-10.0)
[2017-07-05 04:54] LABS: ALANINE AMINOTRANSFERASE 30 Units/L (12-78); ALBUMIN 2.2 g/dL (3.4-5.0); ALKALINE PHOSPHATASE 139 Units/L (46-116); ASPARTATE AMINO TRANSFERASE 51 Units/L (15-37); BLOOD UREA NITROGEN 32 mg/dL (7-18); CALCIUM 7.8 mg/dL (8.5-10.1); CARBON DIOXIDE 21.6 mmol/L (21-32); CHLORIDE 105 mmol/L (98-107); COR CA(FOR HYPOALB) 9.2 mg/dL (8.5-10.1); COR NA(FOR HYPERGLY) 138 mmol/L (136-145); CREATININE 1.03 mg/dL (0.70-1.30); SODIUM 137 mmol/L (136-145); TOTAL PROTEIN 5.4 g/dL (6.4-8.2); eGFR BLACK RACES > 60 (>60); eGFR NON BLACK RACES > 60 (>60)
[2017-07-05] MEDS: NEURONTIN CAP 100 MG PO SCH ×3 (05:35→21:18)
--- NOTE | 2017-07-05 09:20 | DR.CONSULT ---
Consult - Consultation for Day of: Date: 07/04/17 - Chief Complaint Chief Complaint: Patient referred for abdominal pain, acites and history of cirrhosis. Patient with complaints of diffuse abdominal pain. - Allergies Allergies/Adverse Reactions: Allergies Allergy/AdvReac Type Severity Reaction Status Date / Time morphine Allergy Verified 05/28/17 13:04 shrimp Allergy Verified 05/28/17 13:04 - History of Present Illness History of Present Illness: Patient is a 71yo male who was referred for abdominal pain, acites and history of cirrhosis. Liver US showed a moderate amount of ascites and cirrhosis. Patient was transferred may 28 to [place] for brain bleed and received a paracentesis while he was in [place]. Family is unsure of when his last colonsocopy or EGD was. Patient with complaints of diffuse abdominal pain. Pateint denies dysphagia, dyspepsia, nausea, vomiting, diarrhea, constipation, melena and hematochezia. Patient is noted to have mild distention, and very mild tenderness diffusely of abdomen. - Past Medical History Past Medical History: Anxiety, Arthritis, Coronary Artery Disease, CVA, Diabetes , Dyslipidemia, Hypertension, [place] Additional Medical History: Cirrhosis - Past Surgical History Surgical History: CABG/Valve Surgery, Ortho Surgery, Other - Family History Family Medical History: Diabetes Mellitus, Coronary Artery Disease - Social History Does patient currently use any type of tobacco product: No Have you used tobacco products in the last 12 months: No Type of Tobacco Use: None Does any household member use tobacco: No Alcohol Use: None Drug Use: None - Medications Home Medications: Gabapentin [Neurontin Cap 100 mg] 200 mg PO TID 06/29/17 [History Confirmed 08/15] Hydrocodone-Acet 10/325 mg [NORCO 10 MG/325 MG *] 1 tab PEG Q4HR PRN 06/29/17 [ History Confirmed 06/29/17] - Review of Systems Constitutional: No Symptoms Reported Eyes: No Symptoms Reported ENT: No Symptoms Reported Respiratory: No Symptoms Reported Cardiovascular: No Symptoms Reported Gastrointestinal: Abdominal Pain (diffuse) Genitourinary: No Symptoms Reported Musculoskeletal: No Symptoms Reported Skin: No Symptoms Reported Neurological: No Symptoms Reported - Physical Exam Vital Signs: Temperature 98.8 F Pulse Rate [Right Brachial] 89 Pulse Rate [Left Brachial] 80 Pulse Rate 81 Respiratory Rate 16 Blood Pressure [Left Calf] 130/60 Blood Pressure [Right Calf] 119/56 Blood Pressure [Left Arm] 103/59 Blood Pressure [Right Arm] 93/43 Blood Pressure 98/52 O2 Sat by Pulse Oximetry 97 Eyes: Normal Ear: Normal Nose: Normal Throat: Normal Respiratory: Clear Throughout Cardiovascular: Normal Auscultation: Bowel Sounds: Normal Palpation: Normal, Other (mild distention). negative: Spleen Enlarged, Liver Enlarged, Mass Pulsatile Tenderness: Diffuse, Mild Skin: Normal Musculoskeletal: Normal Psychiatric: Normal Mood Description: Calm Affect: Normal Speech Pattern: Clear - Plan Plan: Assessment. 1. Cirrhosis likely BERRY r/o other etiologies. 2. Portal hypertension withmoderate ascites. 3. Colon cancer Screening. Johnson. 1. Hepatitis Profile and abnormal LFT panel, will need EGD as outpatient to r/o esophageal varicies. 2. Paracentesis when there is a larger amount of ascites, will need fluid albumin, cell count and cytology on paracentesis fluid when done and CMP on the same day. 3. Colonoscopy as outpatient. Plan reviewed with Dr. Jeronimo
[2017-07-05] MEDS ORDERED: GLUCOPHAGE ONE ×2 (09:40→20:00)
[2017-07-05] MEDS ORDERED: ZOLOFT PO ONE (09:40)
[2017-07-05] MEDS: LEVAQUIN PREMIX IV 750 MG 750 MG/150 ML BAG IV SCH (09:50)
[2017-07-05] MEDS: PATIENT'S HOME MEDICATION (Amino Acids/Protein Hydrolys [Pro-Stat Awc Liquid Packet] 30 ML PEG SCH ×2 (09:50→21:17)
[2017-07-05] MEDS: TEFLARO 600 MG in D5W 50 ML IV 50 ML IV SCH ×2 (09:54→21:13)
[2017-07-05] MEDS: ASPIRIN PEG SCH (09:57)
[2017-07-05] MEDS: PLAVIX PEG SCH (09:57)
[2017-07-05] MEDS: ZINC SULFATE PEG SCH (09:57)
[2017-07-05] MEDS: GLUCOTROL PEG SCH (09:58)
[2017-07-05] MEDS: LASIX PEG SCH ×2 (09:58→21:19)
[2017-07-05] MEDS: VISTARIL PO PRN (09:58)
[2017-07-05] MEDS: CHRONULAC PO SCH ×2 (09:58→21:19)
[2017-07-05] MEDS: PriLOSEC PO SCH (09:58)
[2017-07-05] MEDS: GLUCOPHAGE PEG SCH ×2 (09:58→21:18)
[2017-07-05] MEDS: ZOLOFT PO SCH (09:58)
[2017-07-05] MEDS: ALBUMIN HUMAN 25%- 100ML 100 ML IV SCH (09:59)
[2017-07-05] MEDS: ALDACTONE TAB 25 MG PO SCH (09:59)
[2017-07-05] MEDS: BETAPACE AF PO SCH ×2 (09:59→21:18)
[2017-07-05] MEDS: NYSTATIN POWDER TOP SCH ×2 (10:00→21:18)
[2017-07-05] MEDS: NORCO 10/325 TAB PEG PRN (11:43)
--- NOTE | 2017-07-05 12:45 | PCM.PROG ---
Progress Note - Progress Note for Day of Date: 07/04/17 - Subjective Subjective: WAS ADMITTED FOR DEHYDRATION, ALTERED MENTAL STATUS, AND UTI. TODAY, HE IS ALERT LYING IN BED ON MORNING ROUNDS. PATIENTS SON IN LAW IS AT BEDSIDE. PATIENT CONTINUES WITH GENERALIZED WEAKNESS AND MILD, DIFFUSE ABDOMINAL PAIN THIS MORNING. PATIENT IS CONFUSED AND IS NOT ORIENTED TO PLACE OR TIME. ON EXAMINATION, LUNG SOUNDS ARE DIMINISHED. ABDOMEN IS DISTENDED AND NOTED WITH DIFFUSE TENDERNESS ON PALPATION. A PEG TUBE IS NOTED TO ABD. NO SIGNS /SX INFECTION NOTED TO SITE OF PEG TUBE. A POPE CATHETER IS NOTED TO BEDSIDE DRAINAGE WITH CONCENTRATED URINE IN BAG. LOWER EXTREMITIES CONTINUE WITH NON- PITTING EDEMA. THERE IS A SACRAL WOUND WITH DRAINAGE NOTED. A WOUND CULTURE WAS ORDERED. GRAM STAIN REPORTS MODERATE WHITE BLOOD CELLS. THERE IS ALSO A DECUBITUS ULCER NOTED TO THE LEFT BUTTOCK. HIS VITAL SIGNS THIS MORNING ARE 99.3 -87-20-99%-130/60. ABNORMAL LAB VALUES INCLUDE THE FOLLOWING: RBC 2.89, HGB 10.3 , HCT 28.9, BUN 29, CALCIUM 8.2, AST 58, ALK PHOS 166, AMMONIA 85, TOTAL PROTEIN 5.9, ALBUMIN 2.3, A/G RATIO 0.6. WE OBTAINED A LIVER ULTRASOUND TODAY. IT REPORTED CIRRHOTIC LIVER. MODERATE AMOUNT OF UPPER ABDOMINAL ASCITES. WILL CONSULT WITH PATIENT TODAY. CASE MANAGEMENT IS ARRANGING PLACEMENT AT THE [facility] OR [facility] FOR WHEN PATIENT IS DISCHARGED. OTHERWISE, WE WILL CONTINUE WITH CURRENT PLAN OF CARE TODAY. WE PLAN TO FOLLOW UP WITH AM LABS AND CONTINUE TO MONITOR PATIENT. - Past Medical Family Social History Past Med/Fam/Surg Hx: No changes since H&P Allergies: Allergies morphine Allergy (Verified 05/28/17 13:04) shrimp Allergy (Verified 05/28/17 13:04) - Review of Systems ROS: No change since H&P - Vital Signs and I&O's Vital Signs: Temperature 98.8 F Pulse Rate [Right Brachial] 89 Pulse Rate [Left Brachial] 80 Pulse Rate 81 Respiratory Rate 16 Blood Pressure [Left Calf] 130/60 Blood Pressure [Right Calf] 119/56 Blood Pressure [Left Arm] 103/59 Blood Pressure [Right Arm] 93/43 Blood Pressure 98/52 O2 Sat by Pulse Oximetry 97 Intake and Output: Intake & Output 07/03/17 07/04/17 07/05/17/08/17 11:59 11:59 11:59 11:59 Intake Total 2500 690 6724 Output Total 1320 Balance 7854 196 9647 - Physical Exam Oriented: Person Eyes: Normal Ear: Normal Nose: Normal Throat: Normal Respiratory: Generalized, Diminished Cardiovascular: Normal : Normal Auscultation: Bowel Sounds: Normal Palpation: Normal Tenderness: Diffuse, Mild Skin: Wound (SACRAL AND LEFT BUTTOCK DECUBITUS ) Musculoskeletal: Normal Psychiatric: Normal Mood Description: Calm Affect: Normal Speech Pattern: Clear - Laboratory and Diagnostics Result Diagrams: 07/05/17 03:40 07/05/17 03:40 Labs: 07/04/17 14:04 Sacral Gram Stain - Final 07/04/17 14:04 Sacral Wound Culture - Preliminary 07/02/17 14:07 Urine,Catheterized Urine Culture - Final 07/01/17 10:22 Stool Stool Culture - Final 07/01/17 10:22 Stool - Final 06/29/17 14:21 Urine,Catheterized Urine Culture - Final Escherichia Coli Laboratory WBC 4.7 X10^3/uL (3.6-10.0) 07/05/17 03:40 RBC 2.77 X10^6/uL (4.7-6.0) L 07/05/17 03:40 Hgb 9.8 g/dL (13.5-18.0) L 07/05/17 03:40 Hct 27.8 % (42.0-54.0) L 07/05/17 03:40 MCV 100.3 fL (80.0-100.0) H 07/05/17 03:40 MCH 35.2 pg (27.0-34.0) H 07/05/17 03:40 MCHC 35.1 g/dL (33.0-35.0) H 07/05/17 03:40 RDW 16.1 % (11.6-16.5) 07/05/17 03:40 Plt Count 88 X10^3/uL (150.0-450.0) L 07/05/17 03:40 MPV 8.0 fL (7.4-11.0) 07/05/17 03:40 Neut % 74.5 % (42.0-75.0) 07/05/17 03:40 Lymph % 15.8 % (21.0-51.0) L 07/05/17 03:40 [place] % 8.5 % (0.0-13.0) 07/05/17 03:40 Eos % 0.7 % (0.9-2.9) L 07/05/17 03:40 Baso % 0.5 % (0.2-1.0) 07/05/17 03:40 Neut # 3.5 x10^3/uL (2.2-4.8) 07/05/17 03:40 Lymph # 0.7 X10^3/uL (1.3-2.9) L 07/05/17 03:40 [place] # 0.4 x10^3/uL (0.3-0.8) 07/05/17 03:40 Eos # 0.0 x10^3/uL (0.0-0.2) 07/05/17 03:40 Baso # 0.0 X10^3/uL (0.0-0.1) 07/05/17 03:40 Absolute Nucleated RBC 0.4 /100WBC 07/05/17 03:40 ESR 48 MM/HOUR (0-15) H 07/01/17 17:20 INR Target Range - 07/05/17 09:43 INR 1.29 (0.8-1.3) 07/05/17 09:43 Sodium 137 mmol/L (136-145) 07/05/17 03:40 Corrected Sodium 138 mmol/L (136-145) 07/05/17 03:40 Potassium 4.4 mmol/L (3.5-5.1) 07/05/17 03:40 Chloride 105 mmol/L (98-107) 07/05/17 03:40 Carbon Dioxide 21.6 mmol/L (21-32) 07/05/17 03:40 BUN 32 mg/dL (7-18) H 07/05/17 03:40 Creatinine 1.03 mg/dL (0.70-1.30) 07/05/17 03:40 Est GFR (MDRD) Af Amer > 60 (>60) 07/05/17 03:40 Est GFR (MDRD) Non-Af > 60 (>60) 07/05/17 03:40 Glucose 124 mg/dL (65-99) H 07/05/17 03:40 POC Glucose (mg/dL) 111 mg/dL (65-99) H 07/05/17 12:12 Calcium 7.8 mg/dL (8.5-10.1) L 07/05/17 03:40 Corrected Calcium 9.2 mg/dL (8.5-10.1) 07/05/17 03:40 Iron 65 ug/dL (50-175) 07/04/17 17:54 Transferrin 159 mg/dL (202-364) L 07/04/17 17:54 Ferritin 163 ng/mL (26-388) 07/04/17 17:54 Total Bilirubin 2.00 mg/dL (0.2-1.0) H 07/05/17 03:40 AST 51 Units/L (15-37) H 07/05/17 03:40 ALT 30 Units/L (12-78) 07/05/17 03:40 Alkaline Phosphatase 139 Units/L (46-116) H 07/05/17 03:40 Ammonia 62 umol/L (11-32) H 07/05/17 03:40 C-Reactive Protein 62.80 mg/L (0-3.0) H 07/01/17 17:20 Total Protein 5.4 g/dL (6.4-8.2) L 07/05/17 03:40 Albumin 2.2 g/dL (3.4-5.0) L 07/05/17 03:40 Globulin 3.2 g/dL (2.5-4.5) 07/05/17 03:40 Albumin/Globulin Ratio 0.7 Ratio (1.1-2.1) L 07/05/17 03:40 Specimen Type Catherized urine 07/02/17 14:07 Urine Color Doris (YELLOW) 07/02/17 14:07 Urine Appearance Slightly hazy (CLEAR) 07/02/17 14:07 Urine pH 5.0 (5.0 - 8.0) 07/02/17 14:07 Ur Specific [place] 1.010 (1.000-1.030) 07/02/17 14:07 Urine Protein Trace (NEGATIVE) 07/02/17 14:07 Urine Glucose (UA) Negative (NEGATIVE) 07/02/17 14:07 Urine Ketones Negative (NEGATIVE) 07/02/17 14:07 Urine Occult Blood 5+ (NEGATIVE) 07/02/17 14:07 Urine Nitrite Negative (NEGATIVE) 07/02/17 14:07 Urine Bilirubin Negative (NEGATIVE) 07/02/17 14:07 Urine Urobilinogen Normal (NORMAL) 07/02/17 14:07 Ur Leukocyte Esterase Trace (NEGATIVE) 07/02/17 14:07 Urine RBC Tntc /HPF (NEGATIVE) 07/02/17 14:07 Urine WBC 1-2 /HPF (NEGATIVE) 07/02/17 14:07 Ur Squamous Epith Cells Rare /HPF (NEGATIVE) 07/02/17 14:07 Calcium Oxalate Crystal Few /HPF (NEGATIVE) 06/29/17 14:21 Urine Bacteria 2+ /HPF (NEGATIVE) 07/02/17 14:07 Ur Culture Indicated? Yes/culture set up 07/02/17 14:07 Stool Description 1g,loose,brown 07/01/17 10:22 Stl Occult Blood (IFOB) Negative (NEGATIVE) 07/01/17 10:22 Stool for White Cells Negative (NEGATIVE) 07/01/17 10:22 Stl C. diff Tox B Gene Negative (NEGATIVE) 07/01/17 10:22 Stl C. diff 027-NAP1-BI Negative (NEGATIVE) 07/01/17 10:22 Cryptosporid parvum Ag Negative (NEGATIVE) 07/01/17 10:22 E. histolytica Antigen Negative (NEGATIVE) 07/01/17 10:22 Giardia lamblia Ag Negative (NEGATIVE) 07/01/17 10:22 - Plan (1) Altered mental status Status: Acute Qualifiers: Altered mental status type: transient alteration of awareness Qualified Code(s): R40.4 - Transient alteration of awareness Plan: CONTINUE IV ATBX FOR UTI, CONTINUE IV HYDRATION, BP MONITORING, RESUME CONTINUE FEEDING REGIMEN, CONTINUE TO MONITOR (2) UTI (urinary tract infection) Status: Acute Qualifiers: Urinary tract infection type: acute cystitis Hematuria presence: with hematuria Qualified Code(s): N30.01 - Acute cystitis with hematuria Plan: CONTINUE IV ABX, CONTINUE TO MONITOR (3) Cirrhosis of liver Status: Acute Qualifiers: Hepatic cirrhosis type: unspecified hepatic cirrhosis Ascites presence: with ascites Qualified Code(s): K74.60 - Unspecified cirrhosis of liver Plan: OBTAIN ABDOMIAL US, CHECK AMMONIA LEVEL, CONTINUE ALDACTONE, CONTINUE TO MONITOR (4) Decubital ulcer Status: Acute Qualifiers: Pressure ulcer location: sacral region Pressure ulcer stage: stage 2 Qualified Code(s): L89.152 - Pressure ulcer of sacral region, stage 2 Plan: WOUND CARE, WOUND CULTURE, CONTINUE TO MONITOR
[2017-07-05] MEDS: SNACK - Diabetic Appropriate PO SCH (21:00)
[2017-07-05] MEDS: PRAZOSIN HCL 3 MG PEG SCH (21:14)
[2017-07-05] MEDS: PROSCAR PEG SCH (21:18)
[2017-07-05] MEDS: TRICOR TAB 145 MG PO SCH (21:19)
[2017-07-06] MEDS: SNACK - Diabetic Appropriate PO SCH ×2 (00:15→21:34)
[2017-07-06 05:12] LABS: BASOPHILS % (AUTO) 0.5 % (0.2-1.0); EOSINOPHILS # (AUTO) 0.1 x10^3/uL (0.0-0.2); EOSINOPHILS % (AUTO) 3.3 % (0.9-2.9); HEMATOCRIT 26.4 % (42.0-54.0); HEMOGLOBIN 9.3 g/dL (13.5-18.0); LYMPHOCYTES % (AUTO) 26.7 % (21.0-51.0); MEAN CORPUSCULAR HEMOGLOBIN 35.2 pg (27.0-34.0); MEAN CORPUSCULAR HGB CONC 35.1 g/dL (33.0-35.0); MEAN CORPUSCULAR VOLUME 100.4 fL (80.0-100.0); MEAN PLATELET VOLUME 8.1 fL (7.4-11.0); MONOCYTES # (AUTO) 0.3 x10^3/uL (0.3-0.8); MONOCYTES % (AUTO) 9.2 % (0.0-13.0); NEUTROPHILS # (AUTO) 2.2 x10^3/uL (2.2-4.8); NEUTROPHILS % (AUTO) 60.3 % (42.0-75.0); PLATELET COUNT 92 X10^3/uL (150.0-450.0); RED BLOOD COUNT 2.63 X10^6/uL (4.7-6.0); RED CELL DISTRIBUTION WIDTH 16.6 % (11.6-16.5); WHITE BLOOD COUNT 3.6 X10^3/uL (3.6-10.0)
[2017-07-06 05:18] LABS: AMMONIA 87 umol/L (11-32)
[2017-07-06] MEDS: NS 1000 ML 1,000 ML IV SCH ×2 (05:27→21:56)
[2017-07-06 05:33] LABS: ALANINE AMINOTRANSFERASE 29 Units/L (12-78); ALBUMIN 2.4 g/dL (3.4-5.0); ALKALINE PHOSPHATASE 136 Units/L (46-116); ASPARTATE AMINO TRANSFERASE 45 Units/L (15-37); BLOOD UREA NITROGEN 44 mg/dL (7-18); CARBON DIOXIDE 21.1 mmol/L (21-32); CHLORIDE 104 mmol/L (98-107); COR CA(FOR HYPOALB) 9.3 mg/dL (8.5-10.1); CREATININE 1.27 mg/dL (0.70-1.30); SODIUM 136 mmol/L (136-145); TOTAL PROTEIN 5.7 g/dL (6.4-8.2); eGFR BLACK RACES > 60 (>60); eGFR NON BLACK RACES 60 (>60)
[2017-07-06] MEDS: NIACIN 500 MG PEG SCH (05:39)
[2017-07-06] MEDS: NEURONTIN CAP 100 MG PO SCH ×3 (05:59→21:37)
[2017-07-06] MEDS ORDERED: GLUCOPHAGE ONE ×2 (08:04→21:17)
[2017-07-06] MEDS ORDERED: ZOLOFT PO ONE (08:04)
[2017-07-06] MEDS: ALBUMIN HUMAN 25%- 100ML 100 ML IV SCH (08:49)
[2017-07-06] MEDS: TEFLARO 600 MG in D5W 50 ML IV 50 ML IV SCH ×2 (08:49→21:37)
[2017-07-06] MEDS: BETAPACE AF PO SCH ×2 (08:50→21:37)
[2017-07-06] MEDS: PriLOSEC PO SCH (08:50)
[2017-07-06] MEDS: ZOLOFT PO SCH (08:50)
[2017-07-06] MEDS: PLAVIX PEG SCH (08:51)
[2017-07-06] MEDS: GLUCOPHAGE PEG SCH ×2 (08:52→21:37)
[2017-07-06] MEDS: ZINC SULFATE PEG SCH (08:52)
[2017-07-06] MEDS: ALDACTONE TAB 25 MG PO SCH (08:52)
[2017-07-06] MEDS: ASPIRIN PEG SCH (08:52)
[2017-07-06] MEDS: CHRONULAC PO SCH ×4 (08:55→21:33)
[2017-07-06] MEDS: PATIENT'S HOME MEDICATION (Amino Acids/Protein Hydrolys [Pro-Stat Awc Liquid Packet] 30 ML PEG SCH ×2 (08:55→21:34)
[2017-07-06] MEDS: NYSTATIN POWDER TOP SCH ×2 (08:55→21:58)
[2017-07-06] MEDS: LASIX PEG SCH ×2 (09:16→21:37)
[2017-07-06] MEDS: NORCO 10/325 TAB PEG PRN (09:16)
[2017-07-06] MEDS: GLUCOTROL PEG SCH (09:16)
[2017-07-06] MEDS: VISTARIL PO PRN (09:17)
[2017-07-06] MEDS: LEVAQUIN PREMIX IV 750 MG 750 MG/150 ML BAG IV SCH (10:30)
[2017-07-06] MEDS: PRAZOSIN HCL 3 MG PEG SCH (21:36)
--- NOTE | 2017-07-06 21:36 | PCM.PROG ---
Progress Note - Progress Note for Day of Date: 07/05/17 - Subjective Subjective: WAS ADMITTED FOR DEHYDRATION, ALTERED MENTAL STATUS, AND UTI. TODAY, HE IS LYING IN BED ON MORNING ROUNDS. PATIENTS DAUGHTER IS AT BEDSIDE. PATIENT CONTINUES WITH GENERALIZED WEAKNESS AND MILD, DIFFUSE ABDOMINAL PAIN THIS MORNING. PATIENT CONTINUES TO BE CONFUSED AND IS NOT ORIENTED TO PLACE OR TIME. ON EXAMINATION, LUNG SOUNDS ARE DIMINISHED. ABDOMEN IS DISTENDED AND NOTED WITH DIFFUSE TENDERNESS ON PALPATION. A PEG TUBE IS NOTED TO ABD. NO SIGNS/SX INFECTION NOTED TO SITE OF PEG TUBE. A POPE CATHETER IS NOTED TO BEDSIDE DRAINAGE WITH CONCENTRATED URINE IN BAG. LOWER EXTREMITIES CONTINUE WITH NON-PITTING EDEMA. SACRAL WOUND CONTINUES WITH DRAINAGE. THERE IS ALSO A DECUBITUS ULCER NOTED TO THE LEFT BUTTOCK. HIS VITAL SIGNS THIS MORNING ARE 98.1-89-22-100%-114/54. ABNORMAL LAB VALUES INCLUDE THE FOLLOWING: RBC 2.77 , HGB 9.8, HCT 27.8, PLT COUNT 88, BUN 32, CREATININE 124, CALCIUM 7.8, TOTAL BILI 2.00, AST 51, ALK PHOS 139, AMMONIA 62, TOTAL PROTEIN 5.4, ALBUMIN 2.2, A/ G RATIO 0.7. PRELIMINARY WOUND CULTURE REPORTS GROWTH OF GRAM NEGATIVE STAPH. WE DISCUSSED DRAINAGE OF FLUID FROM ABDOMEN WITH . HE SUGGEST GUIDED PARACENTESIS BY RADIOLOGY. RADIOLOGY WILL NOT BE ABLE TO DO PROCEDURE UNTIL SUNDAY. WE WILL CONTINUE WITH CURRENT PLAN OF CARE TODAY AND CONTINUE WITH ANTIBIOTICS FOR E.COLI IN URINE AND INFECTION TO SACRAL WOUND. WE PLAN TO FOLLOW UP WITH AM LABS AND CONTINUE TO MONITOR PATIENT. - Past Medical Family Social History Past Med/Fam/Surg Hx: No changes since H&P Allergies: Allergies morphine Allergy (Verified 05/28/17 13:04) shrimp Allergy (Verified 05/28/17 13:04) - Review of Systems ROS: No change since H&P - Vital Signs and I&O's Vital Signs: Temperature 97.8 F Pulse Rate [Right Brachial] 78 Pulse Rate [Left Brachial] 81 Pulse Rate 81 Respiratory Rate 18 Blood Pressure [Left Calf] 106/56 Blood Pressure [Right Calf] 93/52 Blood Pressure [Left Arm] 103/59 Blood Pressure [Right Arm] 93/43 Blood Pressure 98/52 O2 Sat by Pulse Oximetry 99 Intake and Output: Intake & Output 07/04/17 07/05/17 07/06/17 07/07/17 11:59 11:59 11:59 11:59 Intake Total 690 6724 2050 0 Balance 690 6724 2050 0 - Physical Exam Oriented: Person Eyes: Normal Ear: Normal Nose: Normal Throat: Normal Respiratory: Generalized, Diminished Cardiovascular: Normal : Normal Auscultation: Bowel Sounds: Normal Palpation: Normal Tenderness: Diffuse, Mild Skin: Wound (SACRAL AND LEFT BUTTOCK DECUBITUS ) Musculoskeletal: Normal Psychiatric: Normal Mood Description: Calm Affect: Normal Speech Pattern: Clear - Laboratory and Diagnostics Result Diagrams: 07/06/17 03:45 07/06/17 03:45 Labs: 07/04/17 14:04 Sacral Gram Stain - Final 07/04/17 14:04 Sacral Wound Culture - Preliminary 07/02/17 14:07 Urine,Catheterized Urine Culture - Final 07/01/17 10:22 Stool Stool Culture - Final 07/01/17 10:22 Stool - Final 06/29/17 14:21 Urine,Catheterized Urine Culture - Final Escherichia Coli Laboratory WBC 3.6 X10^3/uL (3.6-10.0) 07/06/17 03:45 RBC 2.63 X10^6/uL (4.7-6.0) L 07/06/17 03:45 Hgb 9.3 g/dL (13.5-18.0) L 07/06/17 03:45 Hct 26.4 % (42.0-54.0) L 07/06/17 03:45 MCV 100.4 fL (80.0-100.0) H 07/06/17 03:45 MCH 35.2 pg (27.0-34.0) H 07/06/17 03:45 MCHC 35.1 g/dL (33.0-35.0) H 07/06/17 03:45 RDW 16.6 % (11.6-16.5) H 07/06/17 03:45 Plt Count 92 X10^3/uL (150.0-450.0) L 07/06/17 03:45 MPV 8.1 fL (7.4-11.0) 07/06/17 03:45 Neut % 60.3 % (42.0-75.0) 07/06/17 03:45 Lymph % 26.7 % (21.0-51.0) 07/06/17 03:45 [place] % 9.2 % (0.0-13.0) 07/06/17 03:45 Eos % 3.3 % (0.9-2.9) H 07/06/17 03:45 Baso % 0.5 % (0.2-1.0) 07/06/17 03:45 Neut # 2.2 x10^3/uL (2.2-4.8) 07/06/17 03:45 Lymph # 1.0 X10^3/uL (1.3-2.9) L 07/06/17 03:45 [place] # 0.3 x10^3/uL (0.3-0.8) 07/06/17 03:45 Eos # 0.1 x10^3/uL (0.0-0.2) 07/06/17 03:45 Baso # 0.0 X10^3/uL (0.0-0.1) 07/06/17 03:45 Absolute Nucleated RBC 0.2 /100WBC 07/06/17 03:45 ESR 48 MM/HOUR (0-15) H 07/01/17 17:20 INR Target Range - 07/05/17 09:43 INR 1.29 (0.8-1.3) 07/05/17 09:43 Sodium 136 mmol/L (136-145) 07/06/17 03:45 Corrected Sodium TNP 07/06/17 03:45 Potassium 4.1 mmol/L (3.5-5.1) 07/06/17 03:45 Chloride 104 mmol/L (98-107) 07/06/17 03:45 Carbon Dioxide 21.1 mmol/L (21-32) 07/06/17 03:45 BUN 44 mg/dL (7-18) H 07/06/17 03:45 Creatinine 1.27 mg/dL (0.70-1.30) 07/06/17 03:45 Est GFR (MDRD) Af Amer > 60 (>60) 07/06/17 03:45 Est GFR (MDRD) Non-Af 60 (>60) 07/06/17 03:45 Glucose 76 mg/dL (65-99) 07/06/17 03:45 POC Glucose (mg/dL) 68 mg/dL (65-99) 07/06/17 16:51 Calcium 8.0 mg/dL (8.5-10.1) L 07/06/17 03:45 Corrected Calcium 9.3 mg/dL (8.5-10.1) 07/06/17 03:45 Iron 65 ug/dL (50-175) 07/04/17 17:54 Transferrin 159 mg/dL (202-364) L 07/04/17 17:54 Ferritin 163 ng/mL (26-388) 07/04/17 17:54 Total Bilirubin 0.60 mg/dL (0.2-1.0) 07/06/17 03:45 AST 45 Units/L (15-37) H 07/06/17 03:45 ALT 29 Units/L (12-78) 07/06/17 03:45 Alkaline Phosphatase 136 Units/L (46-116) H 07/06/17 03:45 Ammonia 87 umol/L (11-32) H 07/06/17 03:45 C-Reactive Protein 62.80 mg/L (0-3.0) H 07/01/17 17:20 Total Protein 5.7 g/dL (6.4-8.2) L 07/06/17 03:45 Albumin 2.4 g/dL (3.4-5.0) L 07/06/17 03:45 Globulin 3.3 g/dL (2.5-4.5) 07/06/17 03:45 Albumin/Globulin Ratio 0.7 Ratio (1.1-2.1) L 07/06/17 03:45 Specimen Type Catherized urine 07/02/17 14:07 Urine Color Doris (YELLOW) 07/02/17 14:07 Urine Appearance Slightly hazy (CLEAR) 07/02/17 14:07 Urine pH 5.0 (5.0 - 8.0) 07/02/17 14:07 Ur Specific [place] 1.010 (1.000-1.030) 07/02/17 14:07 Urine Protein Trace (NEGATIVE) 07/02/17 14:07 Urine Glucose (UA) Negative (NEGATIVE) 07/02/17 14:07 Urine Ketones Negative (NEGATIVE) 07/02/17 14:07 Urine Occult Blood 5+ (NEGATIVE) 07/02/17 14:07 Urine Nitrite Negative (NEGATIVE) 07/02/17 14:07 Urine Bilirubin Negative (NEGATIVE) 07/02/17 14:07 Urine Urobilinogen Normal (NORMAL) 07/02/17 14:07 Ur Leukocyte Esterase Trace (NEGATIVE) 07/02/17 14:07 Urine RBC Tntc /HPF (NEGATIVE) 07/02/17 14:07 Urine WBC 1-2 /HPF (NEGATIVE) 07/02/17 14:07 Ur Squamous Epith Cells Rare /HPF (NEGATIVE) 07/02/17 14:07 Calcium Oxalate Crystal Few /HPF (NEGATIVE) 06/29/17 14:21 Urine Bacteria 2+ /HPF (NEGATIVE) 07/02/17 14:07 Ur Culture Indicated? Yes/culture set up 07/02/17 14:07 Stool Description 1g,loose,brown 07/01/17 10:22 Stl Occult Blood (IFOB) Negative (NEGATIVE) 07/01/17 10:22 Stool for White Cells Negative (NEGATIVE) 07/01/17 10:22 Stl C. diff Tox B Gene Negative (NEGATIVE) 07/01/17 10:22 Stl C. diff [id number]-BI Negative (NEGATIVE) 07/01/17 10:22 Cryptosporid parvum Ag Negative (NEGATIVE) 07/01/17 10:22 E. histolytica Antigen Negative (NEGATIVE) 07/01/17 10:22 Giardia lamblia Ag Negative (NEGATIVE) 07/01/17 10:22 - Plan (1) Altered mental status Status: Acute Qualifiers: Altered mental status type: transient alteration of awareness Qualified Code(s): R40.4 - Transient alteration of awareness Plan: CONTINUE IV ATBX FOR UTI, CONTINUE IV HYDRATION, BP MONITORING, RESUME CONTINUE FEEDING REGIMEN, CONTINUE TO MONITOR (2) UTI (urinary tract infection) Status: Acute Qualifiers: Urinary tract infection type: acute cystitis Hematuria presence: with hematuria Qualified Code(s): N30.01 - Acute cystitis with hematuria Plan: CONTINUE IV ABX, CONTINUE TO MONITOR (3) Cirrhosis of liver Status: Acute Qualifiers: Hepatic cirrhosis type: unspecified hepatic cirrhosis Ascites presence: with ascites Qualified Code(s): K74.60 - Unspecified cirrhosis of liver Plan: CHECK AMMONIA LEVEL, CONTINUE ALDACTONE, CONTINUE TO MONITOR (4) Decubital ulcer Status: Acute Qualifiers: Pressure ulcer location: sacral region Pressure ulcer stage: stage 2 Qualified Code(s): L89.152 - Pressure ulcer of sacral region, stage 2 Plan: WOUND CARE, WOUND CULTURE, CONTINUE TO MONITOR
[2017-07-06] MEDS: TRICOR TAB 145 MG PO SCH (21:37)
[2017-07-06] MEDS: PROSCAR PEG SCH (21:37)
[2017-07-07] MEDS: NS 1000 ML 1,000 ML IV SCH ×4 (03:55→21:13)
[2017-07-07] MEDS: NIACIN 500 MG PEG SCH ×2 (03:56→21:37)
[2017-07-07] MEDS: NEURONTIN CAP 100 MG PO SCH ×3 (05:40→21:13)
[2017-07-07 06:05] LABS: BASOPHILS % (AUTO) 0.5 % (0.2-1.0); EOSINOPHILS # (AUTO) 0.1 x10^3/uL (0.0-0.2); EOSINOPHILS % (AUTO) 2.7 % (0.9-2.9); HEMATOCRIT 28.1 % (42.0-54.0); HEMOGLOBIN 9.8 g/dL (13.5-18.0); LYMPHOCYTES # (AUTO) 0.7 X10^3/uL (1.3-2.9); MEAN CORPUSCULAR HEMOGLOBIN 35.5 pg (27.0-34.0); MEAN CORPUSCULAR HGB CONC 34.9 g/dL (33.0-35.0); MEAN CORPUSCULAR VOLUME 101.7 fL (80.0-100.0); MEAN PLATELET VOLUME 7.7 fL (7.4-11.0); MONOCYTES # (AUTO) 0.3 x10^3/uL (0.3-0.8); MONOCYTES % (AUTO) 8.7 % (0.0-13.0); NEUTROPHILS # (AUTO) 2.4 x10^3/uL (2.2-4.8); NEUTROPHILS % (AUTO) 67.1 % (42.0-75.0); PLATELET COUNT 95 X10^3/uL (150.0-450.0); RED BLOOD COUNT 2.77 X10^6/uL (4.7-6.0); RED CELL DISTRIBUTION WIDTH 16.5 % (11.6-16.5); WHITE BLOOD COUNT 3.6 X10^3/uL (3.6-10.0)
[2017-07-07 06:13] LABS: ALANINE AMINOTRANSFERASE 29 Units/L (12-78); ALBUMIN 2.7 g/dL (3.4-5.0); ALKALINE PHOSPHATASE 147 Units/L (46-116); ASPARTATE AMINO TRANSFERASE 46 Units/L (15-37); BLOOD UREA NITROGEN 50 mg/dL (7-18); CALCIUM 8.5 mg/dL (8.5-10.1); CARBON DIOXIDE 20.9 mmol/L (21-32); CHLORIDE 105 mmol/L (98-107); COR CA(FOR HYPOALB) 9.5 mg/dL (8.5-10.1); CREATININE 1.33 mg/dL (0.70-1.30); SODIUM 137 mmol/L (136-145); TOTAL PROTEIN 6.1 g/dL (6.4-8.2); eGFR BLACK RACES > 60 (>60); eGFR NON BLACK RACES 57 (>60)
[2017-07-07 06:21] LABS: AMMONIA 100 umol/L (11-32)
[2017-07-07] MEDS ORDERED: GLUCOPHAGE ONE ×2 (09:16→21:04)
[2017-07-07] MEDS ORDERED: ZOLOFT PO ONE (09:16)
[2017-07-07] MEDS: LEVAQUIN PREMIX IV 750 MG 750 MG/150 ML BAG IV SCH (09:38)
[2017-07-07] MEDS: ALBUMIN HUMAN 25%- 100ML 100 ML IV SCH (09:38)
[2017-07-07] MEDS: CHRONULAC PO SCH ×4 (09:39→21:11)
[2017-07-07] MEDS: PLAVIX PEG SCH (09:41)
[2017-07-07] MEDS: ZINC SULFATE PEG SCH (09:42)
[2017-07-07] MEDS: LASIX PEG SCH ×2 (09:42→21:12)
[2017-07-07] MEDS: ASPIRIN PEG SCH (09:42)
[2017-07-07] MEDS: GLUCOPHAGE PEG SCH ×2 (09:43→21:12)
[2017-07-07] MEDS: BETAPACE AF PO SCH ×2 (09:43→21:13)
[2017-07-07] MEDS: ZOLOFT PO SCH (09:43)
[2017-07-07] MEDS: PriLOSEC PO SCH (09:43)
[2017-07-07] MEDS: ALDACTONE TAB 25 MG PO SCH (09:43)
[2017-07-07] MEDS: TEFLARO 600 MG in D5W 50 ML IV 50 ML IV SCH ×2 (09:44→21:11)
[2017-07-07] MEDS: PATIENT'S HOME MEDICATION (Amino Acids/Protein Hydrolys [Pro-Stat Awc Liquid Packet] 30 ML PEG SCH ×2 (09:45→21:16)
[2017-07-07] MEDS: NYSTATIN POWDER TOP SCH ×2 (09:45→21:16)
[2017-07-07] MEDS: GLUCOTROL PEG SCH (11:18)
[2017-07-07] MEDS ORDERED: TESSALON PERLES PO PRN (12:45)
[2017-07-07] MEDS: DUONEB 0.5 MG/3 MG NEB SCH ×3 (13:20→21:29)
[2017-07-07] MEDS: ZYVOX 600MG IV 600 MG/300 ML BAG IV SCH ×2 (14:39→21:11)
[2017-07-07 20:16] LABS: HEPATITIS A ANTIBODY IGM Negative (Negative)
[2017-07-07] MEDS: PRAZOSIN HCL 3 MG PEG SCH (21:11)
[2017-07-07] MEDS: TRICOR TAB 145 MG PO SCH (21:13)
[2017-07-07] MEDS: SNACK - Diabetic Appropriate PO SCH (21:13)
[2017-07-07] MEDS: PROSCAR PEG SCH (21:16)
[2017-07-07] MEDS ORDERED: LANTISEPTIC ONE (22:08)
[2017-07-07] MEDS ORDERED: LANTISEPTIC TOP PRN (22:55)
--- NOTE | 2017-07-08 00:08 | PCM.PROG ---
Progress Note - Progress Note for Day of Date: 07/06/17 - Subjective Subjective: WAS ADMITTED FOR DEHYDRATION, ALTERED MENTAL STATUS, AND UTI. TODAY, HE IS LYING IN BED ON MORNING ROUNDS. PATIENTS DAUGHTER IS AT BEDSIDE. PATIENT CONTINUES WITH GENERALIZED WEAKNESS AND MILD, DIFFUSE ABDOMINAL PAIN THIS MORNING, AND CONFUSION. ON EXAMINATION, HEART IS REGULAR IN RATE AND RHYTHM. LUNG SOUNDS ARE DIMINISHED. ABDOMEN IS DISTENDED AND NOTED WITH DIFFUSE TENDERNESS ON PALPATION. PEG TUBE TO ABDOMEN WITH NO SIGNS OR SX INFECTION NOTED. LOWER EXTREMITIES CONTINUE WITH NON-PITTING EDEMA. SACRAL WOUND CONTINUES WITH DRAINAGE. THERE IS ALSO A DECUBITUS ULCER NOTED TO THE LEFT BUTTOCK. HIS VITAL SIGNS THIS MORNING ARE 97.3-84-20-100%-99/51. ABNORMAL LAB VALUES INCLUDE THE FOLLOWING: RBC 2.63, HGB 9.3, HCT 26.4, PLT COUNT 92, BUN 44, CALCIUM 8.0, AST 45, ALK PHOS 136, AMMONIA 87, TOTAL PROTEIN 5.7, ALBUMIN 2.4, A/G RATIO 0.7. PRELIMINARY WOUND CULTURE REPORTS GROWTH OF COAGULASE NEGATIVE AND COAGULASE POSITIVE STAPH. WE DISCUSSED DRAINAGE OF FLUID FROM ABDOMEN WITH . WE PLAN FOR A PARACENTESIS ON SUNDAY. WE PLAN TO CONTINUE WITH TREATMENT FOR URINARY TRACT INFECTION AND SACRAL WOUND INFECTION. WE WILL FOLLOW UP WITH AM LABS AND CONTINUE TO MONITOR PATIENT. - Past Medical Family Social History Past Med/Fam/Surg Hx: No changes since H&P Allergies: Allergies morphine Allergy (Verified 05/28/17 13:04) shrimp Allergy (Verified 05/28/17 13:04) - Review of Systems ROS: No change since H&P - Vital Signs and I&O's Vital Signs: Temperature 97.7 F Pulse Rate [Right Brachial] 84 Pulse Rate [Left Brachial] 81 Pulse Rate 89 Respiratory Rate 18 Blood Pressure [Left Calf] 106/56 Blood Pressure [Right Calf] 110/58 Blood Pressure [Left Arm] 103/59 Blood Pressure [Right Arm] 93/43 Blood Pressure 98/52 O2 Sat by Pulse Oximetry 99 Intake and Output: Intake & Output 07/05/17 07/06/17 07/07/17 07/08/17 11:59 11:59 11:59 11:59 Intake Total 6723 2049 1050 0 Balance 6723 2049 1050 0 - Physical Exam Oriented: Person Eyes: Normal Ear: Normal Nose: Normal Throat: Normal Respiratory: Generalized, Diminished Cardiovascular: Normal : Normal Auscultation: Bowel Sounds: Normal Palpation: Normal Tenderness: Diffuse, Mild Skin: Wound (SACRAL AND LEFT BUTTOCK DECUBITUS ) Musculoskeletal: Normal Psychiatric: Normal Mood Description: Calm Affect: Normal Speech Pattern: Slurred - Laboratory and Diagnostics Result Diagrams: 07/07/17 05:30 07/07/17 05:30 Labs: 07/04/17 14:04 Sacral Gram Stain - Final 07/04/17 14:04 Sacral Wound Culture - Preliminary Methicillin Resis Staph Aureus 07/02/17 14:07 Urine,Catheterized Urine Culture - Final 07/01/17 10:22 Stool Stool Culture - Final 07/01/17 10:22 Stool - Final 06/29/17 14:21 Urine,Catheterized Urine Culture - Final Escherichia Coli Laboratory WBC 3.6 X10^3/uL (3.6-10.0) 07/07/17 05:30 RBC 2.77 X10^6/uL (4.7-6.0) L 07/07/17 05:30 Hgb 9.8 g/dL (13.5-18.0) L 07/07/17 05:30 Hct 28.1 % (42.0-54.0) L 07/07/17 05:30 MCV 101.7 fL (80.0-100.0) H 07/07/17 05:30 MCH 35.5 pg (27.0-34.0) H 07/07/17 05:30 MCHC 34.9 g/dL (33.0-35.0) 07/07/17 05:30 RDW 16.5 % (11.6-16.5) 07/07/17 05:30 Plt Count 95 X10^3/uL (150.0-450.0) L 07/07/17 05:30 MPV 7.7 fL (7.4-11.0) 07/07/17 05:30 Neut % 67.1 % (42.0-75.0) 07/07/17 05:30 Lymph % 21.0 % (21.0-51.0) 07/07/17 05:30 [place] % 8.7 % (0.0-13.0) 07/07/17 05:30 Eos % 2.7 % (0.9-2.9) 07/07/17 05:30 Baso % 0.5 % (0.2-1.0) 07/07/17 05:30 Neut # 2.4 x10^3/uL (2.2-4.8) 07/07/17 05:30 Lymph # 0.7 X10^3/uL (1.3-2.9) L 07/07/17 05:30 [place] # 0.3 x10^3/uL (0.3-0.8) 07/07/17 05:30 Eos # 0.1 x10^3/uL (0.0-0.2) 07/07/17 05:30 Baso # 0.0 X10^3/uL (0.0-0.1) 07/07/17 05:30 Absolute Nucleated RBC 0.1 /100WBC 07/07/17 05:30 ESR 48 MM/HOUR (0-15) H 07/01/17 17:20 INR Target Range - 07/05/17 09:43 INR 1.29 (0.8-1.3) 07/05/17 09:43 Sodium 137 mmol/L (136-145) 07/07/17 05:30 Corrected Sodium TNP 07/07/17 05:30 Potassium 4.1 mmol/L (3.5-5.1) 07/07/17 05:30 Chloride 105 mmol/L (98-107) 07/07/17 05:30 Carbon Dioxide 20.9 mmol/L (21-32) L 07/07/17 05:30 BUN 50 mg/dL (7-18) H 07/07/17 05:30 Creatinine 1.33 mg/dL (0.70-1.30) H 07/07/17 05:30 Est GFR (MDRD) Af Amer > 60 (>60) 07/07/17 05:30 Est GFR (MDRD) Non-Af 57 (>60) L 07/07/17 05:30 Glucose 80 mg/dL (65-99) 07/07/17 05:30 POC Glucose (mg/dL) 130 mg/dL (65-99) H 07/07/17 20:59 Calcium 8.5 mg/dL (8.5-10.1) 07/07/17 05:30 Corrected Calcium 9.5 mg/dL (8.5-10.1) 07/07/17 05:30 Iron 65 ug/dL (50-175) 07/04/17 17:54 Transferrin 159 mg/dL (202-364) L 07/04/17 17:54 Ferritin 163 ng/mL (26-388) 07/04/17 17:54 Total Bilirubin 0.60 mg/dL (0.2-1.0) 07/07/17 05:30 AST 46 Units/L (15-37) H 07/07/17 05:30 ALT 29 Units/L (12-78) 07/07/17 05:30 Alkaline Phosphatase 147 Units/L (46-116) H 07/07/17 05:30 Ammonia 100 umol/L (11-32) H 07/07/17 05:30 C-Reactive Protein 62.80 mg/L (0-3.0) H 07/01/17 17:20 Total Protein 6.1 g/dL (6.4-8.2) L 07/07/17 05:30 Albumin 2.7 g/dL (3.4-5.0) L 07/07/17 05:30 Globulin 3.4 g/dL (2.5-4.5) 07/07/17 05:30 Albumin/Globulin Ratio 0.8 Ratio (1.1-2.1) L 07/07/17 05:30 Specimen Type Catherized urine 07/02/17 14:07 Urine Color Doris (YELLOW) 07/02/17 14:07 Urine Appearance Slightly hazy (CLEAR) 07/02/17 14:07 Urine pH 5.0 (5.0 - 8.0) 07/02/17 14:07 Ur Specific [place] 1.010 (1.000-1.030) 07/02/17 14:07 Urine Protein Trace (NEGATIVE) 07/02/17 14:07 Urine Glucose (UA) Negative (NEGATIVE) 07/02/17 14:07 Urine Ketones Negative (NEGATIVE) 07/02/17 14:07 Urine Occult Blood 5+ (NEGATIVE) 07/02/17 14:07 Urine Nitrite Negative (NEGATIVE) 07/02/17 14:07 Urine Bilirubin Negative (NEGATIVE) 07/02/17 14:07 Urine Urobilinogen Normal (NORMAL) 07/02/17 14:07 Ur Leukocyte Esterase Trace (NEGATIVE) 07/02/17 14:07 Urine RBC Tntc /HPF (NEGATIVE) 07/02/17 14:07 Urine WBC 1-2 /HPF (NEGATIVE) 07/02/17 14:07 Ur Squamous Epith Cells Rare /HPF (NEGATIVE) 07/02/17 14:07 Calcium Oxalate Crystal Few /HPF (NEGATIVE) 06/29/17 14:21 Urine Bacteria 2+ /HPF (NEGATIVE) 07/02/17 14:07 Ur Culture Indicated? Yes/culture set up 07/02/17 14:07 Stool Description 1g,loose,brown 07/01/17 10:22 Stl Occult Blood (IFOB) Negative (NEGATIVE) 07/01/17 10:22 Stool for White Cells Negative (NEGATIVE) 07/01/17 10:22 Stl C. diff Tox B Gene Negative (NEGATIVE) 07/01/17 10:22 Stl C. diff [id number] Negative (NEGATIVE) 07/01/17 10:22 Cryptosporid parvum Ag Negative (NEGATIVE) 07/01/17 10:22 E. histolytica Antigen Negative (NEGATIVE) 07/01/17 10:22 Giardia lamblia Ag Negative (NEGATIVE) 07/01/17 10:22 - Plan (1) Altered mental status Status: Acute Qualifiers: Altered mental status type: transient alteration of awareness Qualified Code(s): R40.4 - Transient alteration of awareness Plan: CONTINUE IV ATBX FOR UTI, CONTINUE IV HYDRATION, BP MONITORING, RESUME CONTINUE FEEDING REGIMEN, CONTINUE TO MONITOR (2) UTI (urinary tract infection) Status: Acute Qualifiers: Urinary tract infection type: acute cystitis Hematuria presence: with hematuria Qualified Code(s): N30.01 - Acute cystitis with hematuria Plan: CONTINUE IV ABX, CONTINUE TO MONITOR (3) Cirrhosis of liver Status: Acute Qualifiers: Hepatic cirrhosis type: unspecified hepatic cirrhosis Ascites presence: with ascites Qualified Code(s): K74.60 - Unspecified cirrhosis of liver Plan: CHECK AMMONIA LEVEL, CONTINUE ALDACTONE, CONTINUE TO MONITOR (4) Decubital ulcer Status: Acute Qualifiers: Pressure ulcer location: sacral region Pressure ulcer stage: stage 2 Qualified Code(s): L89.152 - Pressure ulcer of sacral region, stage 2 Plan: WOUND CARE, WOUND CULTURE, CONTINUE TO MONITOR
[2017-07-08 06:08] LABS: BASOPHILS % (AUTO) 0.6 % (0.2-1.0); EOSINOPHILS # (AUTO) 0.1 x10^3/uL (0.0-0.2); EOSINOPHILS % (AUTO) 1.7 % (0.9-2.9); HEMATOCRIT 29.4 % (42.0-54.0); HEMOGLOBIN 9.9 g/dL (13.5-18.0); LYMPHOCYTES # (AUTO) 0.8 X10^3/uL (1.3-2.9); LYMPHOCYTES % (AUTO) 19.2 % (21.0-51.0); MEAN CORPUSCULAR HEMOGLOBIN 34.8 pg (27.0-34.0); MEAN CORPUSCULAR HGB CONC 33.9 g/dL (33.0-35.0); MEAN CORPUSCULAR VOLUME 102.7 fL (80.0-100.0); MEAN PLATELET VOLUME 7.8 fL (7.4-11.0); MONOCYTES # (AUTO) 0.3 x10^3/uL (0.3-0.8); MONOCYTES % (AUTO) 7.8 % (0.0-13.0); NEUTROPHILS # (AUTO) 2.8 x10^3/uL (2.2-4.8); NEUTROPHILS % (AUTO) 70.7 % (42.0-75.0); PLATELET COUNT 95 X10^3/uL (150.0-450.0); RED BLOOD COUNT 2.86 X10^6/uL (4.7-6.0); RED CELL DISTRIBUTION WIDTH 16.8 % (11.6-16.5)
[2017-07-08 06:13] LABS: AMMONIA 61 umol/L (11-32)
[2017-07-08 06:24] LABS: ALANINE AMINOTRANSFERASE 27 Units/L (12-78); ALBUMIN 2.8 g/dL (3.4-5.0); ALKALINE PHOSPHATASE 143 Units/L (46-116); ASPARTATE AMINO TRANSFERASE 38 Units/L (15-37); BLOOD UREA NITROGEN 57 mg/dL (7-18); CALCIUM 8.8 mg/dL (8.5-10.1); CARBON DIOXIDE 20.1 mmol/L (21-32); CHLORIDE 107 mmol/L (98-107); COR CA(FOR HYPOALB) 9.8 mg/dL (8.5-10.1); COR NA(FOR HYPERGLY) 140 mmol/L (136-145); CREATININE 1.45 mg/dL (0.70-1.30); SODIUM 139 mmol/L (136-145); TOTAL PROTEIN 6.1 g/dL (6.4-8.2); eGFR BLACK RACES > 60 (>60); eGFR NON BLACK RACES 51 (>60)
--- NOTE | 2017-07-08 07:18 | RAD ---
Examination: Portable AP chest History: Cough SOB Comparison reference 07/01/2017 Findings: Increasing density at the left base, the diaphragm and costophrenic angle now partly obscur ed. Compression atelectasis is present at the right base. The lungs are markedly underinflated. No pn eumothorax is seen. Impression: Decreased pulmonary volumes accentuate vascular congestion and bibasal atelectasis. There may now be an acute infiltrate in the left lower lung, see above. Reported By:
[2017-07-08] MEDS ORDERED: GLUCOPHAGE ONE ×2 (08:45→22:01)
[2017-07-08] MEDS ORDERED: ZOLOFT PO ONE (08:45)
[2017-07-08] MEDS: DUONEB 0.5 MG/3 MG NEB SCH ×4 (09:03→21:43)
[2017-07-08] MEDS: ALDACTONE TAB 25 MG PO SCH (09:54)
[2017-07-08] MEDS: ASPIRIN PEG SCH (09:54)
[2017-07-08] MEDS: BETAPACE AF PO SCH ×2 (09:55→22:49)
[2017-07-08] MEDS: CHRONULAC PO SCH ×4 (09:56→22:46)
[2017-07-08] MEDS: GLUCOPHAGE PEG SCH ×2 (09:57→22:48)
[2017-07-08] MEDS: GLUCOTROL PEG SCH (09:57)
[2017-07-08] MEDS: LASIX PEG SCH ×2 (09:57→22:57)
[2017-07-08] MEDS: PLAVIX PEG SCH (09:59)
[2017-07-08] MEDS: TEFLARO 600 MG in D5W 50 ML IV 50 ML IV SCH ×2 (10:00→22:48)
[2017-07-08] MEDS: NYSTATIN POWDER TOP SCH ×2 (10:00→22:50)
[2017-07-08] MEDS: PriLOSEC PO SCH (10:01)
[2017-07-08] MEDS: ZINC SULFATE PEG SCH (10:01)
[2017-07-08] MEDS: ZOLOFT PO SCH (10:02)
[2017-07-08] MEDS: ALBUMIN HUMAN 25%- 100ML 100 ML IV SCH (11:16)
[2017-07-08] MEDS: PATIENT'S HOME MEDICATION (Amino Acids/Protein Hydrolys [Pro-Stat Awc Liquid Packet] 30 ML PEG SCH ×2 (11:24→22:47)
[2017-07-08] MEDS: ZYVOX 600MG IV 600 MG/300 ML BAG IV SCH ×2 (11:24→22:48)
[2017-07-08] MEDS: LEVAQUIN PREMIX IV 750 MG 750 MG/150 ML BAG IV SCH (11:24)
[2017-07-08] MEDS: NS 1000 ML 1,000 ML IV SCH ×3 (12:29→23:12)
[2017-07-08] MEDS: NEURONTIN CAP 100 MG PO SCH ×3 (12:30→22:48)
[2017-07-08] MEDS: SNACK - Diabetic Appropriate PO SCH (21:00)
[2017-07-08] MEDS: PRAZOSIN HCL 3 MG PEG SCH (22:45)
[2017-07-08] MEDS: TRICOR TAB 145 MG PO SCH (22:49)
[2017-07-08] MEDS: PROSCAR PEG SCH (22:49)
--- NOTE | 2017-07-09 00:12 | PCM.PROG ---
Progress Note - Progress Note for Day of Date: 07/07/17 - Subjective Subjective: WAS ADMITTED FOR DEHYDRATION, ALTERED MENTAL STATUS, AND UTI. TODAY, HE IS LYING IN BED ON MORNING ROUNDS. PATIENTS DAUGHTER IS AT BEDSIDE. PATIENT CONTINUES WITH GENERALIZED WEAKNESS AND CONFUSION. HE IS NOTED WITH A WET COUGH THIS MORNING. ON EXAMINATION, HEART IS REGULAR IN RATE AND RHYTHM. LUNG SOUNDS ARE NOTED WITH RHONCHI BILATERALLY TO AUSCULTATION. ABDOMEN IS DISTENDED AND NOTED WITH DIFFUSE TENDERNESS ON PALPATION. PEG TUBE TO ABDOMEN WITH NO SIGNS OR SX INFECTION NOTED. LOWER EXTREMITIES CONTINUE WITH NON-PITTING EDEMA. SACRAL WOUND CONTINUES WITH DRAINAGE. THERE IS ALSO A DECUBITUS ULCER NOTED TO THE LEFT BUTTOCK. HIS VITAL SIGNS THIS MORNING ARE 97.9 -89-16-98%-110/55. HE REMAINS HEMODYNAMICALLY STABLE. AMMONIA IS ELEVATED AT 100 THIS MORNING COMPARED TO 87 YESTERDAY. WOUND CULTURES ARE BACK AND REPORT GROWTH OF MRSA FROM WOUND. IT IS RESISTANT TO THE LEVAQUIN THAT HE IS ON. WE WILL START ZYVOXX 600MG BID, JET NEBS, TESSALON PERLES 200MG TID, AND INCREASE LACTULOSE TO 30ML PO QID TODAY. A PARACENTESIS IS PLANNED FOR SUNDAY. WE PLAN TO CONTINUE WITH TREATMENT FOR URINARY TRACT INFECTION AND SACRAL WOUND INFECTION. WE WILL FOLLOW UP WITH AM LABS AND CONTINUE TO MONITOR PATIENT. - Past Medical Family Social History Past Med/Fam/Surg Hx: No changes since H&P Allergies: Allergies morphine Allergy (Verified 05/28/17 13:04) shrimp Allergy (Verified 05/28/17 13:04) - Review of Systems ROS: No change since H&P - Vital Signs and I&O's Vital Signs: Temperature 97.5 F Pulse Rate [Right Posterior 78 Tibial] Pulse Rate [Right Brachial] 78 Pulse Rate [Left Brachial] 81 Pulse Rate 85 Respiratory Rate 20 Blood Pressure [Left Calf] 106/56 Blood Pressure [Right Calf] 112/59 Blood Pressure [Left Arm] 103/59 Blood Pressure [Right Arm] 113/55 Blood Pressure 98/52 O2 Sat by Pulse Oximetry 92 Intake and Output: Intake & Output 07/06/17 07/07/17 07/08/17 07/09/17 11:59 11:59 11:59 11:59 Intake Total 2049 1050 1150 0 Output Total 425 200 Balance 2050 1050 725 -200 - Physical Exam Oriented: Person Eyes: Normal Ear: Normal Nose: Normal Throat: Normal Respiratory: Generalized, Diminished Cardiovascular: Normal : Normal Auscultation: Bowel Sounds: Normal Palpation: Normal Tenderness: Diffuse, Mild Skin: Wound (SACRAL AND LEFT BUTTOCK DECUBITUS ) Musculoskeletal: Normal Psychiatric: Normal Mood Description: Calm Affect: Normal Speech Pattern: Slurred - Laboratory and Diagnostics Result Diagrams: 07/08/17 05:25 07/08/17 05:25 Labs: 07/04/17 14:04 Sacral Gram Stain - Final 07/04/17 14:04 Sacral Wound Culture - Preliminary Methicillin Resis Staph Aureus 07/02/17 14:07 Urine,Catheterized Urine Culture - Final 07/01/17 10:22 Stool Stool Culture - Final 07/01/17 10:22 Stool - Final 06/29/17 14:21 Urine,Catheterized Urine Culture - Final Escherichia Coli Laboratory WBC 4.0 X10^3/uL (3.6-10.0) 07/08/17 05:25 RBC 2.86 X10^6/uL (4.7-6.0) L 07/08/17 05:25 Hgb 9.9 g/dL (13.5-18.0) L 07/08/17 05:25 Hct 29.4 % (42.0-54.0) L 07/08/17 05:25 MCV 102.7 fL (80.0-100.0) H 07/08/17 05:25 MCH 34.8 pg (27.0-34.0) H 07/08/17 05:25 MCHC 33.9 g/dL (33.0-35.0) 07/08/17 05:25 RDW 16.8 % (11.6-16.5) H 07/08/17 05:25 Plt Count 95 X10^3/uL (150.0-450.0) L 07/08/17 05:25 MPV 7.8 fL (7.4-11.0) 07/08/17 05:25 Neut % 70.7 % (42.0-75.0) 07/08/17 05:25 Lymph % 19.2 % (21.0-51.0) L 07/08/17 05:25 [place] % 7.8 % (0.0-13.0) 07/08/17 05:25 Eos % 1.7 % (0.9-2.9) 07/08/17 05:25 Baso % 0.6 % (0.2-1.0) 07/08/17 05:25 Neut # 2.8 x10^3/uL (2.2-4.8) 07/08/17 05:25 Lymph # 0.8 X10^3/uL (1.3-2.9) L 07/08/17 05:25 [place] # 0.3 x10^3/uL (0.3-0.8) 07/08/17 05:25 Eos # 0.1 x10^3/uL (0.0-0.2) 07/08/17 05:25 Baso # 0.0 X10^3/uL (0.0-0.1) 07/08/17 05:25 Absolute Nucleated RBC 0.1 /100WBC 07/08/17 05:25 ESR 48 MM/HOUR (0-15) H 07/01/17 17:20 INR Target Range - 07/05/17 09:43 INR 1.29 (0.8-1.3) 07/05/17 09:43 Sodium 139 mmol/L (136-145) 07/08/17 05:25 Corrected Sodium 140 mmol/L (136-145) 07/08/17 05:25 Potassium 4.3 mmol/L (3.5-5.1) 07/08/17 05:25 Chloride 107 mmol/L (98-107) 07/08/17 05:25 Carbon Dioxide 20.1 mmol/L (21-32) L 07/08/17 05:25 BUN 57 mg/dL (7-18) H 07/08/17 05:25 Creatinine 1.45 mg/dL (0.70-1.30) H 07/08/17 05:25 Est GFR (MDRD) Af Amer > 60 (>60) 07/08/17 05:25 Est GFR (MDRD) Non-Af 51 (>60) L 07/08/17 05:25 Glucose 138 mg/dL (65-99) H 07/08/17 05:25 POC Glucose (mg/dL) 89 mg/dL (65-99) 07/08/17 22:07 Calcium 8.8 mg/dL (8.5-10.1) 07/08/17 05:25 Corrected Calcium 9.8 mg/dL (8.5-10.1) 07/08/17 05:25 Iron 65 ug/dL (50-175) 07/04/17 17:54 Transferrin 159 mg/dL (202-364) L 07/04/17 17:54 Ferritin 163 ng/mL (26-388) 07/04/17 17:54 Total Bilirubin 0.60 mg/dL (0.2-1.0) 07/08/17 05:25 AST 38 Units/L (15-37) H 07/08/17 05:25 ALT 27 Units/L (12-78) 07/08/17 05:25 Alkaline Phosphatase 143 Units/L (46-116) H 07/08/17 05:25 Ammonia 61 umol/L (11-32) H 07/08/17 05:25 C-Reactive Protein 62.80 mg/L (0-3.0) H 07/01/17 17:20 Total Protein 6.1 g/dL (6.4-8.2) L 07/08/17 05:25 Albumin 2.8 g/dL (3.4-5.0) L 07/08/17 05:25 Globulin 3.3 g/dL (2.5-4.5) 07/08/17 05:25 Albumin/Globulin Ratio 0.8 Ratio (1.1-2.1) L 07/08/17 05:25 Specimen Type Catherized urine 07/02/17 14:07 Urine Color Doris (YELLOW) 07/02/17 14:07 Urine Appearance Slightly hazy (CLEAR) 07/02/17 14:07 Urine pH 5.0 (5.0 - 8.0) 07/02/17 14:07 Ur Specific [place] 1.010 (1.000-1.030) 07/02/17 14:07 Urine Protein Trace (NEGATIVE) 07/02/17 14:07 Urine Glucose (UA) Negative (NEGATIVE) 07/02/17 14:07 Urine Ketones Negative (NEGATIVE) 07/02/17 14:07 Urine Occult Blood 5+ (NEGATIVE) 07/02/17 14:07 Urine Nitrite Negative (NEGATIVE) 07/02/17 14:07 Urine Bilirubin Negative (NEGATIVE) 07/02/17 14:07 Urine Urobilinogen Normal (NORMAL) 07/02/17 14:07 Ur Leukocyte Esterase Trace (NEGATIVE) 07/02/17 14:07 Urine RBC Tntc /HPF (NEGATIVE) 07/02/17 14:07 Urine WBC 1-2 /HPF (NEGATIVE) 07/02/17 14:07 Ur Squamous Epith Cells Rare /HPF (NEGATIVE) 07/02/17 14:07 Calcium Oxalate Crystal Few /HPF (NEGATIVE) 06/29/17 14:21 Urine Bacteria 2+ /HPF (NEGATIVE) 07/02/17 14:07 Ur Culture Indicated? Yes/culture set up 07/02/17 14:07 Stool Description 1g,loose,brown 07/01/17 10:22 Stl Occult Blood (IFOB) Negative (NEGATIVE) 07/01/17 10:22 Stool for White Cells Negative (NEGATIVE) 07/01/17 10:22 Stl C. diff Tox B Gene Negative (NEGATIVE) 07/01/17 10:22 Stl C. diff [id number] Negative (NEGATIVE) 07/01/17 10:22 Cryptosporid parvum Ag Negative (NEGATIVE) 07/01/17 10:22 E. histolytica Antigen Negative (NEGATIVE) 07/01/17 10:22 Giardia lamblia Ag Negative (NEGATIVE) 07/01/17 10:22 - Plan (1) Altered mental status Status: Acute Qualifiers: Altered mental status type: transient alteration of awareness Qualified Code(s): R40.4 - Transient alteration of awareness Plan: CONTINUE IV ATBX FOR UTI, CONTINUE IV HYDRATION, BP MONITORING, RESUME CONTINUE FEEDING REGIMEN, CONTINUE TO MONITOR (2) UTI (urinary tract infection) Status: Acute Qualifiers: Urinary tract infection type: acute cystitis Hematuria presence: with hematuria Qualified Code(s): N30.01 - Acute cystitis with hematuria Plan: CONTINUE IV ABX, CONTINUE TO MONITOR (3) Cirrhosis of liver Status: Acute Qualifiers: Hepatic cirrhosis type: unspecified hepatic cirrhosis Ascites presence: with ascites Qualified Code(s): K74.60 - Unspecified cirrhosis of liver Plan: CHECK AMMONIA LEVEL, CONTINUE ALDACTONE, CONTINUE TO MONITOR (4) Decubital ulcer Status: Acute Qualifiers: Pressure ulcer location: sacral region Pressure ulcer stage: stage 2 Qualified Code(s): L89.152 - Pressure ulcer of sacral region, stage 2 Plan: WOUND CARE, WOUND CULTURE, CONTINUE TO MONITOR (5) Infection of wound due to methicillin resistant Staphylococcus aureus (MRSA) Status: Acute Plan: ZYVOX 600MG IV BID, CONTINUE TO MONITOR
[2017-07-09] MEDS: NS 1000 ML 1,000 ML IV SCH ×3 (01:55→21:49)
[2017-07-09] MEDS: NIASPAN ER TAB 500 MG PO SCH (01:55)
[2017-07-09] MEDS: NEURONTIN CAP 100 MG PO SCH ×3 (05:39→21:49)
[2017-07-09 06:10] LABS: BASOPHILS % (AUTO) 0.3 % (0.2-1.0); EOSINOPHILS % (AUTO) 0.4 % (0.9-2.9); HEMATOCRIT 28.2 % (42.0-54.0); HEMOGLOBIN 9.7 g/dL (13.5-18.0); LYMPHOCYTES # (AUTO) 0.7 X10^3/uL (1.3-2.9); LYMPHOCYTES % (AUTO) 14.5 % (21.0-51.0); MEAN CORPUSCULAR HEMOGLOBIN 35.4 pg (27.0-34.0); MEAN CORPUSCULAR HGB CONC 34.3 g/dL (33.0-35.0); MEAN CORPUSCULAR VOLUME 103.5 fL (80.0-100.0); MONOCYTES # (AUTO) 0.3 x10^3/uL (0.3-0.8); MONOCYTES % (AUTO) 5.8 % (0.0-13.0); PLATELET COUNT 91 X10^3/uL (150.0-450.0); RED BLOOD COUNT 2.73 X10^6/uL (4.7-6.0); RED CELL DISTRIBUTION WIDTH 17.1 % (11.6-16.5); WHITE BLOOD COUNT 5.1 X10^3/uL (3.6-10.0)
--- NOTE | 2017-07-09 06:16 | RAD ---
HISTORY: Shortness of breath Study: Chest AP portable Comparison: 07/08/2017, 07/01/2017 Findings: The patient is rotated to the left. The patient is status post median sternotomy. The heart is enlarg ed. Mild pulmonary venous congestion is present. The lungs are generally hypo inflated with bibasilar subsegmental atelectasis present. No definite acute infiltrates or pleural effusions are identified. The bony thorax is unremarkable. IMPRESSION: Cardiomegaly with minimal pulmonary venous congestion Lungs hypo inflated Bibasilar subsegmental atelectasis Reported By:
[2017-07-09 06:23] LABS: AMMONIA 58 umol/L (11-32)
[2017-07-09 06:29] LABS: ALANINE AMINOTRANSFERASE 24 Units/L (12-78); ALBUMIN 2.9 g/dL (3.4-5.0); ALKALINE PHOSPHATASE 113 Units/L (46-116); ASPARTATE AMINO TRANSFERASE 31 Units/L (15-37); BLOOD UREA NITROGEN 68 mg/dL (7-18); CALCIUM 9.2 mg/dL (8.5-10.1); CARBON DIOXIDE 18.7 mmol/L (21-32); CHLORIDE 109 mmol/L (98-107); COR CA(FOR HYPOALB) 10.1 mg/dL (8.5-10.1); CREATININE 1.73 mg/dL (0.70-1.30); SODIUM 142 mmol/L (136-145); TOTAL PROTEIN 6.1 g/dL (6.4-8.2); eGFR BLACK RACES 51 (>60); eGFR NON BLACK RACES 42 (>60)
[2017-07-09 07:38] LABS: HEPATITIS B CORE IGM Negative (Negative); HEPATITIS B SURFACE ANTIGEN Negative (Negative)
[2017-07-09 07:39] LABS: ANTI-NUCLEAR ANTIBODY TEST None Detected (None Detected)
[2017-07-09] MEDS: DUONEB 0.5 MG/3 MG NEB SCH ×4 (09:14→20:02)
[2017-07-09] MEDS ORDERED: ZOLOFT PO ONE (09:50)
[2017-07-09 10:21] LABS: COPPER LEVEL 89 ug/dL (70-140)
[2017-07-09] MEDS: NYSTATIN POWDER TOP SCH ×2 (10:30→21:49)
[2017-07-09] MEDS: ALDACTONE TAB 25 MG PO SCH (10:33)
[2017-07-09] MEDS: CHRONULAC PO SCH ×2 (10:33→14:05)
[2017-07-09] MEDS: GLUCOPHAGE PEG SCH ×2 (10:33→21:47)
[2017-07-09] MEDS: LASIX PEG SCH ×2 (10:34→21:47)
[2017-07-09] MEDS: ASPIRIN PEG SCH (10:34)
[2017-07-09] MEDS: ZINC SULFATE PEG SCH (10:35)
[2017-07-09] MEDS: PLAVIX PEG SCH (10:35)
[2017-07-09] MEDS: BETAPACE AF PO SCH ×2 (10:35→21:46)
[2017-07-09] MEDS: TEFLARO 600 MG in D5W 50 ML IV 50 ML IV SCH ×2 (10:36→21:58)
[2017-07-09] MEDS: ALBUMIN HUMAN 25%- 100ML 100 ML IV SCH (10:36)
[2017-07-09] MEDS: PriLOSEC PO SCH (10:36)
[2017-07-09] MEDS: ZOLOFT PO SCH (10:36)
[2017-07-09] MEDS: GLUCOTROL PEG SCH (10:37)
[2017-07-09] MEDS: LEVAQUIN PREMIX IV 750 MG 750 MG/150 ML BAG IV SCH (10:37)
[2017-07-09] MEDS: ZYVOX 600MG IV 600 MG/300 ML BAG IV SCH ×2 (10:37→21:58)
[2017-07-09] MEDS: PATIENT'S HOME MEDICATION (Amino Acids/Protein Hydrolys [Pro-Stat Awc Liquid Packet] 30 ML PEG SCH ×2 (10:38→21:46)
[2017-07-09] MEDS ORDERED: ATIVAN INJ 2 MG VIAL IVP PRN (12:51)
[2017-07-09] MEDS ORDERED: VERSED 100 MG in NS 100 ML IV 80 ML IV PRN (13:03)
[2017-07-09] MEDS ORDERED: NS 500 ML IV 500 ML IV ONE (14:12)
[2017-07-09] MEDS ORDERED: CHRONULAC PEG SCH (17:00)
[2017-07-09] MEDS ORDERED: NYSTATIN SUSP MT SCH (17:00)
[2017-07-09] MEDS: SNACK - Diabetic Appropriate PO SCH (19:46)
--- NOTE | 2017-07-09 21:27 | PCM.PROG ---
Progress Note - Progress Note for Day of Date: 07/08/17 - Subjective Subjective: WAS ADMITTED FOR DEHYDRATION, ALTERED MENTAL STATUS, AND UTI. TODAY, HE IS LYING IN BED ON MORNING ROUNDS. PATIENTS DAUGHTER IS AT BEDSIDE. PATIENT OPENS EYES TO VERBAL STIMULI BUT DOES NOT RESPOND VERBALLY. HE CONTINUES WITH A WET COUGH THIS MORNING. ON EXAMINATION, HEART IS REGULAR IN RATE AND RHYTHM. LUNG SOUNDS ARE NOTED WITH RHONCHI BILATERALLY TO AUSCULTATION. HE IS NOTED TO BE UTILIZING OXYGEN VIA NASAL CANNULA AT 2L/MIN. ABDOMEN CONTINUES WITH DISTENTION. PEG TUBE TO ABDOMEN WITH NO SIGNS OR SX INFECTION NOTED. LOWER EXTREMITIESARE NOTED WITH 1+ PITTING EDEMA THIS MORNING. WOUNDS TO SACRUM AND BUTTOCK ARE NOTED WITH DRESSINGS. DRESSINGS ARE DRY AND INTACT. HIS VITAL SIGNS THIS MORNING ARE 97.5-84-20-99%-99/52. HE REMAINS HEMODYNAMICALLY STABLE. AMMONIA IS NOTED TO HAVE INCREASED TO 143 TODAY. HE CONTINUES ON LACTULOSE 30MG PO QID AND IV ANTIBIOTICS FOR SUSPECTED BRONCHITIS AND INFECTION IN WOUNDS. A PARACENTESIS IS PLANNED FOR SUNDAY. WE PLAN TO CONTINUE WITH TREATMENT FOR URINARY TRACT INFECTION, BRONCHITIS, AND SACRAL WOUND INFECTION TODAY. WE WILL FOLLOW UP WITH AM LABS AND CONTINUE TO MONITOR PATIENT. - Past Medical Family Social History Past Med/Fam/Surg Hx: No changes since H&P Allergies: Allergies morphine Allergy (Verified 05/28/17 13:04) shrimp Allergy (Verified 05/28/17 13:04) - Review of Systems ROS: No change since H&P - Vital Signs and I&O's Vital Signs: Temperature 96.7 F Pulse Rate [Right Posterior 85 Tibial] Pulse Rate [Right Brachial] 81 Pulse Rate [Left Brachial] 81 Pulse Rate 81 Respiratory Rate 20 Blood Pressure [Left Calf] 106/56 Blood Pressure [Right Calf] 108/59 Blood Pressure [Left Arm] 103/59 Blood Pressure [Right Arm] 113/55 Blood Pressure 98/52 O2 Sat by Pulse Oximetry 98 Intake and Output: Intake & Output 07/07/17 07/08/17 07/09/17 07/10/17 11:59 11:59 11:59 11:59 Intake Total 1050 1150 0 9774 Output Total 425 400 25 Balance 1050 725 -400 9749 - Physical Exam Oriented: Unable to test Eyes: Normal Ear: Normal Nose: Normal Throat: Normal Respiratory: Right, Left, Generalized, Rhonchi Cardiovascular: Normal : Normal Auscultation: Bowel Sounds: Normal Palpation: Normal Tenderness: Diffuse, Mild Skin: Wound (SACRAL AND LEFT BUTTOCK DECUBITUS ) Musculoskeletal: Motor Deficit Psychiatric: Normal Mood Description: Flat Affect: Normal Speech Pattern: Unclear - Laboratory and Diagnostics Result Diagrams: 07/09/17 05:00 07/09/17 05:00 Labs: 07/04/17 14:04 Sacral Gram Stain - Final 07/04/17 14:04 Sacral Wound Culture - Final Methicillin Resis Staph Aureus 07/02/17 14:07 Urine,Catheterized Urine Culture - Final 07/01/17 10:22 Stool Stool Culture - Final 07/01/17 10:22 Stool - Final 06/29/17 14:21 Urine,Catheterized Urine Culture - Final Escherichia Coli Laboratory WBC 5.1 X10^3/uL (3.6-10.0) 07/09/17 05:00 RBC 2.73 X10^6/uL (4.7-6.0) L 07/09/17 05:00 Hgb 9.7 g/dL (13.5-18.0) L 07/09/17 05:00 Hct 28.2 % (42.0-54.0) L 07/09/17 05:00 MCV 103.5 fL (80.0-100.0) H 07/09/17 05:00 MCH 35.4 pg (27.0-34.0) H 07/09/17 05:00 MCHC 34.3 g/dL (33.0-35.0) 07/09/17 05:00 RDW 17.1 % (11.6-16.5) H 07/09/17 05:00 Plt Count 91 X10^3/uL (150.0-450.0) L 07/09/17 05:00 MPV 8.0 fL (7.4-11.0) 07/09/17 05:00 Neut % 79.0 % (42.0-75.0) H 07/09/17 05:00 Lymph % 14.5 % (21.0-51.0) L 07/09/17 05:00 [place] % 5.8 % (0.0-13.0) 07/09/17 05:00 Eos % 0.4 % (0.9-2.9) L 07/09/17 05:00 Baso % 0.3 % (0.2-1.0) 07/09/17 05:00 Neut # 4.0 x10^3/uL (2.2-4.8) 07/09/17 05:00 Lymph # 0.7 X10^3/uL (1.3-2.9) L 07/09/17 05:00 [place] # 0.3 x10^3/uL (0.3-0.8) 07/09/17 05:00 Eos # 0.0 x10^3/uL (0.0-0.2) 07/09/17 05:00 Baso # 0.0 X10^3/uL (0.0-0.1) 07/09/17 05:00 Absolute Nucleated RBC 0.1 /100WBC 07/09/17 05:00 ESR 48 MM/HOUR (0-15) H 07/01/17 17:20 INR Target Range - 07/05/17 09:43 INR 1.29 (0.8-1.3) 07/05/17 09:43 Sodium 142 mmol/L (136-145) 07/09/17 05:00 Corrected Sodium TNP 07/09/17 05:00 Potassium 4.2 mmol/L (3.5-5.1) 07/09/17 05:00 Chloride 109 mmol/L (98-107) H 07/09/17 05:00 Carbon Dioxide 18.7 mmol/L (21-32) L 07/09/17 05:00 BUN 68 mg/dL (7-18) H 07/09/17 05:00 Creatinine 1.73 mg/dL (0.70-1.30) H 07/09/17 05:00 Est GFR (MDRD) Af Amer 51 (>60) L 07/09/17 05:00 Est GFR (MDRD) Non-Af 42 (>60) L 07/09/17 05:00 Glucose 106 mg/dL (65-99) H 07/09/17 05:00 POC Glucose (mg/dL) 87 mg/dL (65-99) 07/09/17 19:58 Calcium 9.2 mg/dL (8.5-10.1) 07/09/17 05:00 Corrected Calcium 10.1 mg/dL (8.5-10.1) 07/09/17 05:00 Iron 65 ug/dL (50-175) 07/04/17 17:54 Transferrin 159 mg/dL (202-364) L 07/04/17 17:54 Ferritin 163 ng/mL (26-388) 07/04/17 17:54 Total Bilirubin 0.80 mg/dL (0.2-1.0) 07/09/17 05:00 AST 31 Units/L (15-37) 07/09/17 05:00 ALT 24 Units/L (12-78) 07/09/17 05:00 Alkaline Phosphatase 113 Units/L (46-116) 07/09/17 05:00 Ammonia 58 umol/L (11-32) H 07/09/17 05:00 C-Reactive Protein 62.80 mg/L (0-3.0) H 07/01/17 17:20 Total Protein 6.1 g/dL (6.4-8.2) L 07/09/17 05:00 Albumin 2.9 g/dL (3.4-5.0) L 07/09/17 05:00 Globulin 3.2 g/dL (2.5-4.5) 07/09/17 05:00 Albumin/Globulin Ratio 0.9 Ratio (1.1-2.1) L 07/09/17 05:00 [id number]-2-Anvnxyozpxv 154 mg/dL (90-200) 07/04/17 17:54 Ceruloplasmin 24 mg/dL (17-54) 07/04/17 17:54 Specimen Type Catherized urine 07/02/17 14:07 Urine Color Doris (YELLOW) 07/02/17 14:07 Urine Appearance Slightly hazy (CLEAR) 07/02/17 14:07 Urine pH 5.0 (5.0 - 8.0) 07/02/17 14:07 Ur Specific [place] 1.010 (1.000-1.030) 07/02/17 14:07 Urine Protein Trace (NEGATIVE) 07/02/17 14:07 Urine Glucose (UA) Negative (NEGATIVE) 07/02/17 14:07 Urine Ketones Negative (NEGATIVE) 07/02/17 14:07 Urine Occult Blood 5+ (NEGATIVE) 07/02/17 14:07 Urine Nitrite Negative (NEGATIVE) 07/02/17 14:07 Urine Bilirubin Negative (NEGATIVE) 07/02/17 14:07 Urine Urobilinogen Normal (NORMAL) 07/02/17 14:07 Ur Leukocyte Esterase Trace (NEGATIVE) 07/02/17 14:07 Urine RBC Tntc /HPF (NEGATIVE) 07/02/17 14:07 Urine WBC 1-2 /HPF (NEGATIVE) 07/02/17 14:07 Ur Squamous Epith Cells Rare /HPF (NEGATIVE) 07/02/17 14:07 Calcium Oxalate Crystal Few /HPF (NEGATIVE) 06/29/17 14:21 Urine Bacteria 2+ /HPF (NEGATIVE) 07/02/17 14:07 Ur Culture Indicated? Yes/culture set up 07/02/17 14:07 Stool Description 1g,loose,brown 07/01/17 10:22 Stl Occult Blood (IFOB) Negative (NEGATIVE) 07/01/17 10:22 Stool for White Cells Negative (NEGATIVE) 07/01/17 10:22 Stl C. diff Tox B Gene Negative (NEGATIVE) 07/01/17 10:22 Stl C. diff [id number] Negative (NEGATIVE) 07/01/17 10:22 [place]pper 89 ug/dL (70-140) 07/04/17 17:54 EDNA Screen None detected (None Detected) 07/04/17 17:54 EDNA Titer TNP 07/04/17 17:54 EDNA Pattern TNP 07/04/17 17:54 Sm (Malik) Antibody 0 07/04/17 17:54 Anti-Mitochondrial Ab 8.8 Units (0.0-20.0) 07/04/17 17:54 Cryptosporid parvum Ag Negative (NEGATIVE) 07/01/17 10:22 E. histolytica Antigen Negative (NEGATIVE) 07/01/17 10:22 Giardia lamblia Ag Negative (NEGATIVE) 07/01/17 10:22 Hepatitis A IgM Ab Negative (Negative) 07/04/17 17:54 Hep Bs Antigen Negative (Negative) 07/04/17 17:54 Hep Bs Ag Confirmation TNP 07/04/17 17:54 Hep B Core IgM Ab Negative (Negative) 07/04/17 17:54 Hepatitis C Ab Index 0.12 IV 07/04/17 17:54 Hepatitis C Interp Negative (Negative) 07/04/17 17:54 Hepatitis Interpret See note 07/04/17 17:54 - Plan (1) Bronchitis, acute Status: Acute Qualifiers: Bronchitis organism: unspecified organism Qualified Code(s): J20.9 - Acute bronchitis, unspecified Plan: CONTINUE IV ANTIBIOTIC, CONTINUE NEB TX, CONTINUE SUPPLEMENTAL OXYGEN, CONTINUE TO MONITOR LABS AND CHEST XRAY (2) UTI (urinary tract infection) Status: Acute Qualifiers: Urinary tract infection type: acute cystitis Hematuria presence: with hematuria Qualified Code(s): N30.01 - Acute cystitis with hematuria Plan: CONTINUE IV ABX, CONTINUE TO MONITOR (3) Decubital ulcer Status: Acute Qualifiers: Pressure ulcer location: sacral region Pressure ulcer stage: stage 2 Qualified Code(s): L89.152 - Pressure ulcer of sacral region, stage 2 Plan: WOUND CARE, WOUND CULTURE, CONTINUE TO MONITOR (4) Infection of wound due to methicillin resistant Staphylococcus aureus (MRSA) Status: Acute Plan: ZYVOX 600MG IV BID, CONTINUE TO MONITOR (5) Cirrhosis of liver Status: Acute Qualifiers: Hepatic cirrhosis type: unspecified hepatic cirrhosis Ascites presence: with ascites Qualified Code(s): K74.60 - Unspecified cirrhosis of liver Plan: CHECK AMMONIA LEVEL, CONTINUE ALDACTONE, CONTINUE TO MONITOR (6) Altered mental status Status: Acute Qualifiers: Altered mental status type: transient alteration of awareness Qualified Code(s): R40.4 - Transient alteration of awareness Plan: CONTINUE IV ATBX FOR UTI, CONTINUE IV HYDRATION, BP MONITORING, RESUME CONTINUE FEEDING REGIMEN, CONTINUE TO MONITOR
[2017-07-09] MEDS: PRAZOSIN HCL 3 MG PEG SCH (21:47)
[2017-07-09] MEDS: PROSCAR PEG SCH (21:47)
[2017-07-09] MEDS: TRICOR TAB 145 MG PO SCH (21:48)
[2017-07-09 22:10] VITALS: BP 107/55
[2017-07-10] MEDS ORDERED: ALDACTONE TAB 25 MG PEG SCH (09:00)
== END 2017-07-10 01:50 | disposition expired | DRG 641 ==
LOC: ER 13:13 → MED/SURG 15:32 → OBSVTOIN 07-04 08:30 → UNDODISIN 07-10 01:50
PROVIDERS: ADMIT Internal Medicine; ATTEND Internal Medicine
DX: E86.0 Dehydration (principal); R40.4 Transient alteration of awareness; G93.89 Other specified disorders of brain; K74.60 Unspecified cirrhosis of liver; N30.01 Acute cystitis with hematuria; J20.8 Acute bronchitis due to other specified organisms; L89.152 Pressure ulcer of sacral region, stage 2; B95.62 Methicillin resistant Staphylococcus aureus infection as the cause of diseases classified elsewhere; B96.29 Other Escherichia coli [E. coli] as the cause of diseases classified elsewhere; F41.8 Other specified anxiety disorders; I25.810 Atherosclerosis of coronary artery bypass graft(s) without angina pectoris; E11.65 Type 2 diabetes mellitus with hyperglycemia; E78.2 Mixed hyperlipidemia; I10 Essential (primary) hypertension; Z66 Do not resuscitate; I50.9 Heart failure, unspecified; K21.9 Gastro-esophageal reflux disease without esophagitis; I25.2 Old myocardial infarction; Z93.1 Gastrostomy status; I46.9 Cardiac arrest, cause unspecified
CPT/HCPCS: 36415; 51702; 71010; 76536; 76705; 80053; 80074; 81001; 82103; 82140; 82270; 82390; 82525; 82728; 83540; 83630; 84466; 85025; 85610; 85652; 86140; 86235; 86256; 86308; 87045; 87070; 87075; 87077; 87086; 87088; 87186; 87205; 87328; 87329; 87336; 87427; 87493; 87899; 94640; 94760; 96365; 99284; A4216; A4222; P9047; Q0177; S0138; G0378; J0712; J1956; J2020; J7620